=== PATIENT | female | born 1940 | race Caucasian/White ===

== ENCOUNTER 2023-06-30 18:36 | Inpatient (IN) | payer MEDICARE, SELFPAY ==
[2023-06-30] VITALS (7 sets, daily range): BP systolic 120–153; BP diastolic 39–80; BMI 25.4; BMI 21.7
[2023-06-30 15:42] LABS: COVID-19 Antigen Negative (Negative)
[2023-06-30 15:42] LABS: % Basophils 0.3 % (0-2); % Immature Granulocytes 0.4 % (0-0.5); % Lymphocytes 18.1 % (20.5-51.1); % Monocytes 12.9 % (1.7-9.3); % Neutrophils 68.3 % (42.2-75.2); Absolute Lymphocytes 1.9 10^3/uL (1.2-3.4); Absolute Monocytes 1.3 10^3/uL (0.1-0.6); Absolute Neutrophils 7.1 10^3/uL (1.4-6.5); Hematocrit 35.4 % (37.0-47.0); Hemoglobin 12.7 g/dL (12.0-16.0); Mean Corp Hgb Conc. 35.9 g/dL (33.0-37.0); Mean Corpuscular Hgb 33.2 pg (27.0-31.0); Mean Corpuscular Volume 92.4 fL (81.0-99.0); Mean Platelet Volume 10.8 fL (7.4-10.4); Nucleated Red Blood Cells % 0 %; Platelet Count 204 10^3/uL (130-400); Red Blood Cell Count 3.83 10^6/uL (4.20-5.40); White Blood Cell Count 10.4 10^3/uL (4.8-10.8)
[2023-06-30 15:55] LABS: ALT (SGPT) 42 U/L (0-35); AST (SGOT) 105 U/L (14-36); Albumin 3.9 g/dl (3.5-5.0); Alkaline Phosphatase 61 U/L (38-126); Blood Urea Nitrogen 19 mg/dl (7-17); Carbon Dioxide 24 mmol/L (22-30); Chloride 102 mmol/L (98-107); Estimated Creatinine Clearance 29 ml/min; Glucose 107 mg/dl (70-99); Potassium 4.3 mmol/L (3.5-5.1); Sodium 132 mmol/L (135-145); Total Bilirubin 0.6 mg/dl (0.2-1.3); Total Protein 7.4 g/dl (6.3-8.2); eGFR 49.86
--- NOTE | 2023-06-30 15:56 | ED.GENMED ---
History of Present Illness
<Marie Quintana PA-C - Last Filed: 06/30/23 19:03>
General
Chief Complaint: Cold/Flu/URI Symptoms
Source: patient
Exam Limitations: none
Time Seen by Provider: 06/30/23 15:22
Nursing documentation reviewed up to this point in time: agreed with
Travel History
Have you had any contact with someone who has COVID-19?: Unable to Answer
Do you have any symptoms of coronavirus? Fever > 100 degrees, chills, cough, shortness of breath, sore throat, loss of taste or smell, muscle aches, or headache?: Unable to Answer
History of Present Illness
History of Present Illness:
Patient is a 82 year old female with history dementia, hypertension, GERD, diabetes presenting to the emergency department via EMS from assisted living facility for evaluation of weakness and dehydration. According to EMS paperwork�patient was
picked up from [facility] assisted living due to weakness and low pulse ox and flulike symptoms. Patient denies any current complaints. She is coughing on initial encounter. She denies any chest pain, shortness of breath, abdominal pain, vomiting.
Per her son�she has been more confused recently and was started on a course of Ceftin 250 mg twice daily yesterday for suspected urinary tract infection.
Phy Exam
<Marie Quintana PA-C - Last Filed: 06/30/23 19:03>
Physical Exam
Physical Exam:
General: Well appearing and non-toxic
Vitals: Vital signs stable, febrile to 100.1 Fahrenheit
HEENT: Atraumatic, normocephalic; pupils equal round and reactive to light bilaterally, sclera anicteric cervical protecting airway
Neck: appears supple, no JVD, no meningeal signs
CV: Regular rate and rhythm, heart sounds normal, no evidence of cyanosis
Resp: No evidence of respiratory distress, lungs clear without wheezes, rales or rhonchi, no accessory muscle use
Abd: Soft, nontender non-distended
Extremities: No deformities, no evidence of cyanosis or edema
Neuro: alert and oriented x 1 to person; speech normal, no focal motor deficit
Psych: Normal affect
Skin: Intact, no rashes
Course
<Marie Quintana PA-C - Last Filed: 06/30/23 19:03>
Orders/Labs/Results
Orders:
Orders
06/30/23 Dinner
Regular
At Your Request: Limited, Structural Iron Worker Required
06/30/23 15:28
Complete Blood Count/With Diff Urgent
Comprehensive Metabolic Panel Urgent
06/30/23 15:34
COVID-19 Antigen Urgent
Source: Nasal Swab
INF RAPID [Influenza A+B Rapid Molecular] Urgent
GIULIANO Source: Nasal Swab
Specimen Description:
06/30/23 15:55
Urinalysis Reflex To Culture Urgent
Date Specimen was Collected: 06/30/23
Time Specimen was Collected: 19:27
Acetaminophen [Tylenol] 650 mg PO NOW STA
CR Chest - 2 Views Urgent
Comment:
Reason For Exam: shortness of breath, influenza A positive
06/30/23 16:13
0.9% Sodium Chloride 1000 ml [Nss] 1,000 ml IV BOLUS
06/30/23 18:00
Oseltamivir Phosphate [Tamiflu] 30 mg PO NOW STA
06/30/23 18:11
Admit/Transfer Patient As Directed
Co-Sign Provider:
Level of Care: Inpatient admission
Assign to:: Medical/Surgical
Physician / Group: brenden hodge
Diagnosis: influenza A with hypoxia, mekhi
Reason for Hospitalization: influenza A with hypoxia, mekhi
Expected length of stay greater than two midnights?: Yes
ELOS- Estimated Length of Stay in days: 3
I certify the patient meets the requirements for IP care: Yes
Code Status As Directed
Resuscitation Status: Do not resuscitate
Reached after discussion with pt or family/Healthcare POA: Yes
Based on pt advanced directive or healthcare POA form: Yes
Decision communicated with: per son at bedside
06/30/23 18:12
DNR Bracelet Application ONCE
07/01/23 08:00
Oseltamivir Phosphate [Tamiflu] 30 mg PO BID
Abnormal Lab Results
06/30/23
15:28
RBC 3.83 L 10^6/uL
(4.20-5.40)
Hct 35.4 L %
(37.0-47.0)
MCH 33.2 H pg
(27.0-31.0)
MPV 10.8 H fL
(7.4-10.4)
Absolute Neuts (auto) 7.1 H 10^3/uL
(1.4-6.5)
Absolute Monos (auto) 1.3 H 10^3/uL
(0.1-0.6)
Lymphocytes % 18.1 L %
(20.5-51.1)
Monocytes % 12.9 H %
(1.7-9.3)
Sodium 132 L mmol/L
(135-145)
BUN 19 H mg/dl
(7-17)
Creatinine 1.1 H mg/dL
(0.6-1.0)
Glucose 107 H mg/dl
(70-99)
AST 105 H U/L
(14-36)
ALT 42 H U/L
(0-35)
06/30/23 15:28
06/30/23 15:28
Vital Signs
Initial and Last Documented VS:
Initial Vital Signs
Temp Pulse Resp BP Pulse Ox
100.1 F 74 28 153/49 92
06/30/23 15:12 06/30/23 15:12 06/30/23 15:12 06/30/23 15:12 06/30/23 15:12
Last Documented Vital Signs
Temp Pulse Resp BP Pulse Ox
100.1 F 74 28 151/50 95
06/30/23 15:12 06/30/23 15:12 06/30/23 15:12 06/30/23 17:00 06/30/23 18:23
<Misha Leal MD - Last Filed: 06/30/23 19:38>
Orders/Labs/Results
Orders:
Orders
06/30/23 Dinner
Regular
At Your Request: Limited, Structural Iron Worker Required
06/30/23 15:28
Complete Blood Count/With Diff Urgent
Comprehensive Metabolic Panel Urgent
06/30/23 15:34
COVID-19 Antigen Urgent
Source: Nasal Swab
INF RAPID [Influenza A+B Rapid Molecular] Urgent
GIULIANO Source: Nasal Swab
Specimen Description:
06/30/23 15:55
Urinalysis Reflex To Culture Urgent
Date Specimen was Collected: 06/30/23
Time Specimen was Collected: 19:27
Acetaminophen [Tylenol] 650 mg PO NOW STA
CR Chest - 2 Views Urgent
Comment:
Reason For Exam: shortness of breath, influenza A positive
06/30/23 16:13
0.9% Sodium Chloride 1000 ml [Nss] 1,000 ml IV BOLUS
06/30/23 18:00
Oseltamivir Phosphate [Tamiflu] 30 mg PO NOW STA
06/30/23 18:11
Admit/Transfer Patient As Directed
Co-Sign Provider:
Level of Care: Inpatient admission
Assign to:: Medical/Surgical
Physician / Group: brenden hodge
Diagnosis: influenza A with hypoxia, mekhi
Reason for Hospitalization: influenza A with hypoxia, mekhi
Expected length of stay greater than two midnights?: Yes
ELOS- Estimated Length of Stay in days: 3
I certify the patient meets the requirements for IP care: Yes
Code Status As Directed
Resuscitation Status: Do not resuscitate
Reached after discussion with pt or family/Healthcare POA: Yes
Based on pt advanced directive or healthcare POA form: Yes
Decision communicated with: per son at bedside
06/30/23 18:12
DNR Bracelet Application ONCE
07/01/23 08:00
Oseltamivir Phosphate [Tamiflu] 30 mg PO BID
Abnormal Lab Results
06/30/23
15:28
RBC 3.83 L 10^6/uL
(4.20-5.40)
Hct 35.4 L %
(37.0-47.0)
MCH 33.2 H pg
(27.0-31.0)
MPV 10.8 H fL
(7.4-10.4)
Absolute Neuts (auto) 7.1 H 10^3/uL
(1.4-6.5)
Absolute Monos (auto) 1.3 H 10^3/uL
(0.1-0.6)
Lymphocytes % 18.1 L %
(20.5-51.1)
Monocytes % 12.9 H %
(1.7-9.3)
Sodium 132 L mmol/L
(135-145)
BUN 19 H mg/dl
(7-17)
Creatinine 1.1 H mg/dL
(0.6-1.0)
Glucose 107 H mg/dl
(70-99)
AST 105 H U/L
(14-36)
ALT 42 H U/L
(0-35)
06/30/23 15:28
06/30/23 15:28
Vital Signs
Initial and Last Documented VS:
Initial Vital Signs
Temp Pulse Resp BP Pulse Ox
100.1 F 74 28 153/49 92
06/30/23 15:12 06/30/23 15:12 06/30/23 15:12 06/30/23 15:12 06/30/23 15:12
Last Documented Vital Signs
Temp Pulse Resp BP Pulse Ox
100.1 F 74 28 151/50 95
06/30/23 15:12 06/30/23 15:12 06/30/23 15:12 06/30/23 17:00 06/30/23 18:23
<Marie Quintana PA-C - Last Filed: 06/30/23 19:03>
MDM/Problems Addressed
Differential Diagnosis Includes:
Viral illness, dehydration, pneumonia, bronchitis, COVID, flu
MDM/Problems Addressed:
Patient is an 82-year-old female presenting from assisted living facility with flulike symptoms and associated hypoxia. Patient with runny nose, cough, fever for the past 2 days. No chest pain or shortness of breath. Physical exam as documented
above. Vital signs are stable, she is febrile to 100.1 Fahrenheit on arrival. She is mildly hypoxic with an O2 saturation of 90 on room air. Heart rate regular, lungs clear. Will check basic labs, viral swabs, urinalysis, chest x-ray. Will give
Tylenol for fever. Will place patient on O2 to maintain oxygen saturation.
CBC without any clinically significant abnormalities. CMP with mild hyponatremia of 132�likely due to dehydration. Mild renal insufficiency likely prerenal. Transaminitis likely reactive. COVID-negative. Patient positive for influenza A. Will
start IV fluids.
Patient O2 saturation improved to 94 on 1 L O2. Chest x-ray pending
Given acute dehydration secondary to influenza A and oxygen requirement�will admit to hospitalist for further management. Discussed with hospitalist.
Chronic conditions affecting care:
Dementia, hypertension, GERD, diabetes
Acute Exacerbation and/or Progression of Chronic Illness:
Influenza A, acute dehydration
<Marie Quintana PA-C - Last Filed: 06/30/23 19:03>
*Radiology
Radiology exam reviewed: preliminary read by ED provider and radiology read reviewed
*Pulse Oximetry
Patient hypoxic: yes
Comment: Placed on 1 L nasal cannula
*Tax Advisor Interpretation
Rate: normal
Interpretation: normal
Heart Rate: 72
Rhythm: sinus
*Critical Care Note
Total Time (30-74mins, 75-104mins- exclusive of procedures): Not Applicable
ED Attending Note
<Marie Quintana PA-C - Last Filed: 06/30/23 19:03>
-
Portions of this chart may have been created with voice recognition software.� Occasional wrong word or��sound alike� substitutions may have occurred due to the inherent limitations of voice recognition software.
<Misha Leal MD - Last Filed: 06/30/23 19:38>
ED Attending Note
Patient seen and examined by attending physician: Yes
ED Attending Note:
Patient with history of dementia, presents to ED from snf secondary to low oxygen level along with 'flulike symptoms'. Patient upon arrival is alert and awake, but pleasantly confused. Patient offers no complaints.
Physical Exam
General: no apparent distress, not acutely ill. afebrile
Head: nc/at. eomi
Neck: supple. no meningeal signs.
Heart: s1/s2 regular rate and rhythm, no murmur. equal radial pulses.
Lungs: no acute respiratory distress. clear bilaterally
Abdomen: normal bowel sounds. not tender.
Neuro: alert and oriented x 1. no focal neurological deficits
Skin: no rash
Psychiatric: well kept. interactive and cooperative
Extremities: no edema. no calf tenderness.
History and exam consistent with symptoms secondary to influenza, including hyponatremia noted, likely prerenal from mild dehydration. As patient is requiring supplemental oxygen, patient will be admitted for further eval treatment, including
continue IV hydration.
Discharge Plan
Departure
Patient Disposition: Admit
Date of Disposition: 06/30/23
Time of Disposition: 17:07
Presentation/result/management discussed w/ accepting MD/DO: Hospitalist
Discharge Problem:
Influenza A, Acute dehydration
Interventions
Interventions:
*Risk Screen - Suicide Last Done: 06/30/23 15:22
*General Assessment Last Done: 06/30/23 15:12
*Neglect/Abuse Screening Last Done: 06/30/23 15:22
ED- Fall Risk Assessment Last Done: 06/30/23 18:25
*ED COVID-19 Vaccine History Last Done: 06/30/23 15:12
ED- Pulmonary Assessment Last Done: 06/30/23 18:23
[2023-06-30] MEDS: TYLENOL 650 MG PO (16:32)
[2023-06-30] MEDS: NSS 1000 IV (16:35)
--- NOTE | 2023-06-30 17:39 | HPS.HSE ---
Addendum entered and electronically signed by Donta Ocampo MD 06/30/23 18:22:
CODE STATUS DNR/DNI per son at bedside
Addendum entered and electronically signed by Donta Ocampo MD 06/30/23 18:16:
I saw and examined the patient.
The SPRING REPAIRER HELPER HAND's note was reviewed and I agree with the note.
Comment:
81-year-old female extensive past medical history of hypertension, hyperlipidemia, mood disorder, dementia, GERD who is presenting from custodial with weakness. Patient with dementia. States of mild cough. Patient was found to be influenza
positive.
General:�Comfortable, Conversant and Fever; No Pain or Chills
HEENT:�NormoCephalic, Anicteric, Moist mucous membranes
Respiratory:�Clear; No Wheezes, Rales or Rhonchi, on oxygen
Cardiac:�S1/S2 and Regular Rhythm; No Murmur, Rub, Gallop or Peripheral Edema
GI:�Soft, Non Tender, Non Distended, Normal Bowel Sounds and No Hepatosplenomegaly
Musculoskeletal:�No Clubbing, No Cyanosis and No Edema
Skin:�Warm and Dry; No Rash or Jaundice
Neuro:�Awake, Alert
Psych:�Calm
Impression
Acute hypoxic respiratory insuffiency
Influenza positive
Primary hypertension
hyperlipidemia
GERD
Mood disorder
Dementia unknown if with behavioral disturbances
Insomnia
Mild hyponatremia
Elevated creatinine
Mild transaminitis
Sjogren syndrome
Hx of CVA
Plan
Start patient on LR at 80 cc/h
Trend BMP
Start patient on Tamiflu
Wean oxygen as tolerated
Follow-up chest x-ray
Hold lisinopril
Hold statin
DVT ppx
d/w with son at bedside in details.
Original Note:
Family Physician
-
Family Physician: PHYSICIAN PRIVATE
Chief Complaint
-
Cough, weakness, runny nose
History of Present Illness
82-year-old female from [facility] assisted living with flu symptoms cough, weakness, runny nose that started yesterday 06/29/2023 per her son. She was started on Ceftin 250 mg twice daily of which she took 2 doses. Today she was noted to be hypoxic
so they sent her to ER for evaluation. She is flu A positive in the Er with mild hypoxia and noted to be dehydrated. Her son states she had blood work done last week including A1c she has had increased lethargy so they had stopped her gabapentin
and metformin due to a normal A1c and decreased her trazodone to help improve alertness. He is unsure of her baseline labs. The patient denies headache, chest pain, palpitations, shortness of breath, abdominal pain, nausea, vomiting, diarrhea,
urinary symptoms
The patient has past medical history of dementia, TIA, HTN, GERD, Sjogren's syndrome, DM 2, anxiety, depression.
Medical History
Past Medical History
Past Medical History: Reports Other
Additional Past Medical History:
dementia, TIA/CVA 4 years ago, HTN, GERD, Sjogren's syndrome, DM 2, anxiety, depression
Past Surgical History: Reports Other (Foot surgery, cataract extraction bilaterally)
Social History
Tobacco: Non-smoker
Alcohol: None
Drug: None
Personal: Single
Living: Assisted Living ([facility])
Employment: Retired
Family History
Family History: Unable to Obtain
Allergies / Home Medications
Allergies reflects when Allergies were last updated in [employer].
Home Medications with original date entered in [employer]
Allergy/Medication List:
Allergies
Allergy/AdvReac Type Severity Reaction Status Date / Time
No Known Allergies Allergy Unverified 06/30/23 15:57
Home Medications
acetaminophen 325 mg tablet (Tylenol) 650 mg PO Q6HPRN PRN mild pain 06/30/23
amlodipine 2.5 mg tablet (Norvasc) 2.5 mg PO DAILY 06/30/23
aspirin 81 mg chewable tablet 81 mg PO DAILY 06/30/23
atorvastatin 40 mg tablet (Lipitor) 40 mg PO HS 06/30/23
calcium carbonate 600 mg-vitamin D3 10 mcg (400 unit) tablet (Calcium 600 + D(3)) 1 tab PO BID 06/30/23
cefuroxime axetil 250 mg tablet 250 mg PO BID 06/30/23
cevimeline 30 mg capsule 1 cap PO BID 06/30/23
cholecalciferol (vitamin D3) 25 mcg (1,000 unit) tablet (Vitamin D3) 25 mcg PO DAILY 06/30/23
clopidogrel 75 mg tablet (Plavix) 75 mg PO DAILY 06/30/23
esomeprazole magnesium 40 mg capsule,delayed release (Nexium) 40 mg PO DAILY 06/30/23
ezetimibe 10 mg tablet (Zetia) 10 mg PO DAILY 06/30/23
fenofibrate nanocrystallized 145 mg tablet (Tricor) 145 mg PO DAILY 06/30/23
ferrous sulfate 325 mg (65 mg iron) tablet 325 mg PO DAILY 06/30/23
lisinopril 2.5 mg tablet 2.5 mg PO DAILY 06/30/23
metoprolol succinate 25 mg tablet,extended release 24 hr (Toprol XL) 25 mg PO BID 06/30/23
paroxetine HCl 20 mg tablet (Paxil) 20 mg PO DAILY 06/30/23
risperidone 0.5 mg tablet (Risperdal) 0.5 mg PO HS 06/30/23
therapeutic multivitamin 1 tab PO DAILY 06/30/23
trazodone 50 mg tablet 25 mg PO HS 06/30/23
Review of Systems
-
History Source: Patient and Family (Son at bedside)
A 12 point ROS was completed and negative except as noted: Yes
Constitutional: Reports Fever and Chills
EENT: Reports Runny Nose; Denies Sore Throat
Respiratory: Reports Cough; Denies Trouble Breathing
Cardiac: Denies Chest Pain, Diaphoresis, Palpitations or Syncope
Abdomen/GI: Denies Abdominal Pain, Nausea, Vomiting, Diarrhea, Constipated, Bloody Stools or Black Stools
: Denies Dysuria, Frequency, Flank Pain, Incontinence or Difficulty Voiding
Musculoskeletal: Denies Joint Pain or Edema
Skin: Denies Itching or Rash
Neurological: Denies Dizzy, Headache or Weakness
Endocrine: Reports No Symptoms
Hematologic/Lymphatic: Reports No Symptoms
Psych: Reports Calm
Physical Exam
Vital Signs
Vital Signs
Temp Pulse Resp BP Pulse Ox
100.1 F 74 28 153/49 92
06/30/23 15:12 06/30/23 15:12 06/30/23 15:12 06/30/23 15:12 06/30/23 15:12
Physical Exam
General: Comfortable, Conversant and Fever; No Pain or Chills
HEENT: NormoCephalic, Anicteric, Moist mucous membranes and PERRLA
Respiratory: Clear; No Wheezes, Rales or Rhonchi
Cardiac: S1/S2 and Regular Rhythm; No Murmur, Rub, Gallop or Peripheral Edema
Breast: Deferred by me
GI: Soft, Non Tender, Non Distended, Normal Bowel Sounds and No Hepatosplenomegaly
Rectal: Deferred by Provider
Genito-urinary: Deferred by me
Musculoskeletal: No Clubbing, No Cyanosis and No Edema
Skin: Warm and Dry; No Rash or Jaundice
Neuro: Awake, Alert, Oriented (To name, some of history, son) and No Sensory Deficits; No Slurred Speech, Facial Droop, Tremors or Sedated
Psych: Calm
Laboratory Results
-
06/30/23 15:28
06/30/23 15:28
Laboratory Results
Total Bilirubin 0.6 mg/dl (0.2-1.3) 06/30/23 15:28
AST 105 U/L (14-36) H 06/30/23 15:28
ALT 42 U/L (0-35) H 06/30/23 15:28
Alkaline Phosphatase 61 U/L (38-126) 06/30/23 15:28
Impression/Plan
-
Impression/plan:
Admit to MedSurg
#Acute hypoxic resp insuff 2/2 influenza A
Took 2 doses of Ceftin 250mg bid will hold further doses as patient has a viral illness as above
92% RA
-Flu A precautions
-Tamiflu 30 mg twice daily x 5 days
-Continue regular diet
-PT/OT/case management consult
CXR:�Negative
#CLARITA likely dehydration secondary to influenza A
Creat 1.1 no prior lab
-IV LR 80cc/hr
-Hold lisinopril 2.5 mg
-Follow CMP
#Transaminitis�mild likely reactive
-Follow CMP
-Hold Lipitor 40 mg, Zetia 10 mg consider just resuming 1
#Dementia hx
-Fall precautions
#HTN-benign
-Monitor BP
-Continue Norvasc 2.5 mg daily, metoprolol ER 25 mg, hold lisinopril 2.5 mg
#TIA hx/CVA
-Continue aspirin, Plavix hold current Lipitor and Zetia given transaminitis
#DM 2
Recent metformin was stopped 1 week ago due to normal A1c per son although cannot recall value
#GERD
-Continue Nexium
#Anxiety/depression
-Continue risperidone 0.5 mg at bedtime, Paxil 20 mg daily
#Sjrogens syndrome
#Insomnia
-Continue trazodone 25 mg at bedtime hold if sedated recently had decreased 1 week ago
DVT prophylaxis
-Subcu Lovenox
DNR per son at bedside
[2023-06-30] MEDS: TAMIFLU 30 MG PO (18:20)
[2023-06-30 19:48] LABS: Urine Albumin Trace (Neg - Trace); Urine Bilirubin Negative (Negative); Urine Character Clear (Clear); Urine Color Yellow; Urine Glucose Negative (Negative); Urine Ketone Trace (Negative); Urine Leukocyte Negative (Negative); Urine Nitrite Negative (Negative); Urine Occult Blood Negative (Negative); Urine Urobilinogen Negative (Neg - 1+)
[2023-06-30] MEDS: TOPROL XL 25 MG PO (21:00)
[2023-06-30] MEDS: OSCAL 500 + D 500 MG PO (21:00)
[2023-06-30] MEDS: MUCINEX 600 MG PO (21:00)
[2023-06-30] MEDS: LR 1000 IV (21:01)
[2023-06-30] MEDS: RISPERDAL 0.5 MG PO (22:51)
[2023-06-30] MEDS: DESYREL 25 MG PO (22:51)
[2023-07-01 07:30] VITALS: BP 143/60
[2023-07-01 07:42] LABS: % Basophils 0.2 % (0-2); % Eosinophils 0.2 % (0-6); % Immature Granulocytes 0.4 % (0-0.5); % Lymphocytes 24.4 % (20.5-51.1); % Monocytes 15.8 % (1.7-9.3); Absolute Lymphocytes 1.1 10^3/uL (1.2-3.4); Absolute Monocytes 0.7 10^3/uL (0.1-0.6); Absolute Neutrophils 2.8 10^3/uL (1.4-6.5); Hematocrit 30.3 % (37.0-47.0); Hemoglobin 10.6 g/dL (12.0-16.0); Mean Corpuscular Hgb 33.3 pg (27.0-31.0); Mean Corpuscular Volume 95.3 fL (81.0-99.0); Nucleated Red Blood Cells % 0 %; Red Blood Cell Count 3.18 10^6/uL (4.20-5.40); Red Cell Dist. Width 13.5 % (11.5-14.5); White Blood Cell Count 4.7 10^3/uL (4.8-10.8)
[2023-07-01 08:52] LABS: Platelet Count 140 10^3/uL (130-400)
[2023-07-01] MEDS: FEOSOL 325 MG PO (09:43)
[2023-07-01] MEDS: PAXIL 20 MG PO (09:43)
[2023-07-01] MEDS: MUCINEX 600 MG PO ×2 (09:43→19:38)
[2023-07-01] MEDS: THERAGRAN 1 TABLET PO (09:43)
[2023-07-01] MEDS: LOW STRENGTH ASPIRIN 81 MG PO (09:43)
[2023-07-01] MEDS: TAMIFLU 30 MG PO ×2 (09:43→19:38)
[2023-07-01] MEDS: NORVASC 2.5 MG PO (09:43)
[2023-07-01] MEDS: PROTONIX 40 MG PO (09:43)
[2023-07-01] MEDS: PLAVIX 75 MG PO (09:43)
[2023-07-01] MEDS: VITAMIN D3 (cholecalciferol) 25 MCG PO (09:43)
[2023-07-01] MEDS: OSCAL 500 + D 500 MG PO ×2 (09:43→19:38)
[2023-07-01 09:44] LABS: ALT (SGPT) 29 U/L (0-35); AST (SGOT) 71 U/L (14-36); Albumin 2.6 g/dl (3.5-5.0); Alkaline Phosphatase 46 U/L (38-126); Blood Urea Nitrogen 19 mg/dl (7-17); Calcium 8.6 mg/dl (8.4-10.2); Carbon Dioxide 26 mmol/L (22-30); Chloride 106 mmol/L (98-107); Estimated Creatinine Clearance 43 ml/min; Glucose 87 mg/dl (70-99); Potassium 3.9 mmol/L (3.5-5.1); Sodium 137 mmol/L (135-145); Total Bilirubin 0.5 mg/dl (0.2-1.3); Total Protein 5.7 g/dl (6.3-8.2); eGFR > 60.00
[2023-07-01] MEDS: TOPROL XL 25 MG PO ×2 (09:44→19:38)
[2023-07-01] MEDS: LR 1000 IV (09:45)
--- NOTE | 2023-07-01 11:47 | W.PN.HOSP.TC ---
Today's Communication/Plan
-
monitor diet tolerance
Wean down o2 as tolerated
Tamiflu
PT/OT
Assessment / Plan
Assessment / Plan
#Acute hypoxic resp insuff 2/2 influenza A
-Flu A precautions
-Tamiflu 30 mg twice daily x 5 days
-Continue regular diet
-PT/OT/case management consult
CXR:�Negative
#Elevated Cr likely CLARITA likely secondary to dehydration secondary to influenza A
Creat 1.1 no prior lab. Cr downtrending.
-IV LR 80cc/hr can be stopped later today if tolerating diet.
-Hold lisinopril 2.5 mg
-Follow CMP
#Transaminitis�mild likely reactive
-Follow CMP,. improving
-Hold Lipitor 40 mg, Zetia 10 mg
#Dementia hx
-Fall precautions
#HTN-benign
-Monitor BP
-Continue Norvasc 2.5 mg daily, metoprolol ER 25 mg, hold lisinopril 2.5 mg
#TIA hx/CVA
-Continue aspirin, Plavix hold current Lipitor and Zetia given transaminitis
#DM 2
Recent metformin was stopped 1 week ago due to normal A1c per son although cannot recall value
#GERD
-Continue Nexium
#Anxiety/depression
-Continue risperidone 0.5 mg at bedtime, Paxil 20 mg daily
#Sjrogens� syndrome
#Insomnia
-Continue trazodone 25 mg at bedtime hold if sedated recently had decreased 1 week ago
DVT prophylaxis
-Subcu Lovenox
DNR per son at bedside
Anticipated Discharge: Within 24 hours
Subjective/Interval History
-
Date of Service: July 01, 2023
afebrile overnight
denies sob
Objective Data
-
Labs:
Laboratory Results
07/01/23
06:47
WBC 4.7 L
Hgb 10.6 L
Hct 30.3 L
Plt Count 140 D
Sodium 137
Potassium 3.9
Chloride 106
Carbon Dioxide 26
BUN 19 H
Creatinine 0.9
Glucose 87
Calcium 8.6
Total Bilirubin 0.5
AST 71 H
ALT 29
Alkaline Phosphatase 46
Vital Signs:
Vital Signs
Temp Pulse Resp BP Pulse Ox
98.7 F 61 18 143/60 97
07/01/23 07:30 07/01/23 09:44 07/01/23 07:30 07/01/23 09:44 07/01/23 07:30
I&O
06/30/23 07/01/23 07/02/23
06:59 06:59 06:59
Intake Total 600 / 600
Balance 600 / 600
Physical Exam
-
General: Well Developed and No Apparent Distress
HEENT: Normocephalic, Atraumatic, Moist Mucous Membranes and Oxygen
Respiratory: Clear to Auscultation
Cardiac: Regular Rhythm and S1/S2; Negative Murmur, Rub or Gallop
GI: Soft, Nontender, Nondistended and Normal Bowel Sounds; Negative Organomegaly
Rectal: Deferred by Provider
Musculoskeletal: No Clubbing, No Cyanosis and No Edema
Skin: Negative Rash
Neuro: Awake, No Motor Deficits and Nonfocal/Grossly Intact
Psych: Apparent Dementia
[2023-07-01 11:59] VITALS: BP 114/48; BP 121/50; PULSE 64; O2SAT 95
[2023-07-01 12:00] VITALS: BP 114/48; BP 121/50; PULSE 64; O2SAT 95
--- NOTE | 2023-07-01 14:15 | CM ---
Addendum entered by Claribel Vera 07/01/23 15:15:
PT/OT are recommending skilled placement, options reviewed with patient's son, Dustin and he has selected [facility], referral sent to [facility].
Original Note:
patient financial services manager reviewed patient's chart and patient is currently on isolation, patient also with dementia per chart, case checker spoke with patient's son Dustin who provided patient's social situation. Patient resides at [facility] in [place]. Patient was independent with adl's and uses a walker with ambulation. Patient has a prescription plan and patient uses [facility] in [place] pharmacy.
PCP: Dr. Bundy
Plan; patient financial services manager will await PT/OT evaluations to assist with discharge planning. Possibly to return to [facility].
[2023-07-01 15:30] VITALS: BP 145/51
[2023-07-01] MEDS: LOVENOX 40 MG SC (18:00)
[2023-07-01 19:37] VITALS: BP 138/55
[2023-07-01] MEDS: RISPERDAL 0.5 MG PO (21:13)
[2023-07-01] MEDS: DESYREL 25 MG PO (21:13)
[2023-07-01 23:00] VITALS: BP 139/59
[2023-07-02] MEDS: LR 1000 IV (00:03)
[2023-07-02 07:30] VITALS: BP 161/69
[2023-07-02 08:52] LABS: % Basophils 0.2 % (0-2); % Immature Granulocytes 0.2 % (0-0.5); % Monocytes 13.9 % (1.7-9.3); % Neutrophils 46.7 % (42.2-75.2); Absolute Lymphocytes 1.6 10^3/uL (1.2-3.4); Absolute Monocytes 0.6 10^3/uL (0.1-0.6); Absolute Neutrophils 1.9 10^3/uL (1.4-6.5); Hematocrit 34.1 % (37.0-47.0); Hemoglobin 11.9 g/dL (12.0-16.0); Mean Corp Hgb Conc. 34.9 g/dL (33.0-37.0); Mean Corpuscular Hgb 32.8 pg (27.0-31.0); Mean Corpuscular Volume 93.9 fL (81.0-99.0); Mean Platelet Volume 11.1 fL (7.4-10.4); Nucleated Red Blood Cells % 0 %; Platelet Count 175 10^3/uL (130-400); Red Blood Cell Count 3.63 10^6/uL (4.20-5.40); Red Cell Dist. Width 13.7 % (11.5-14.5); White Blood Cell Count 4.1 10^3/uL (4.8-10.8)
[2023-07-02 09:28] LABS: ALT (SGPT) 38 U/L (0-35); AST (SGOT) 89 U/L (14-36); Albumin 3.4 g/dl (3.5-5.0); Alkaline Phosphatase 62 U/L (38-126); Blood Urea Nitrogen 17 mg/dl (7-17); Calcium 8.8 mg/dl (8.4-10.2); Carbon Dioxide 27 mmol/L (22-30); Chloride 106 mmol/L (98-107); Estimated Creatinine Clearance 43 ml/min; Glucose 95 mg/dl (70-99); Potassium 3.6 mmol/L (3.5-5.1); Sodium 137 mmol/L (135-145); Total Bilirubin 0.6 mg/dl (0.2-1.3); Total Protein 6.7 g/dl (6.3-8.2); eGFR > 60.00
[2023-07-02] MEDS: MUCINEX 600 MG PO ×2 (10:19→20:11)
[2023-07-02] MEDS: THERAGRAN 1 TABLET PO (10:20)
[2023-07-02] MEDS: VITAMIN D3 (cholecalciferol) 25 MCG PO (10:20)
[2023-07-02] MEDS: OSCAL 500 + D 500 MG PO ×2 (10:21→20:11)
[2023-07-02] MEDS: NORVASC 2.5 MG PO ×2 (10:21→12:18)
[2023-07-02] MEDS: PAXIL 20 MG PO (10:21)
[2023-07-02] MEDS: TOPROL XL 25 MG PO ×2 (10:21→20:11)
[2023-07-02] MEDS: PROTONIX 40 MG PO (10:22)
[2023-07-02] MEDS: TAMIFLU 30 MG PO ×2 (10:22→20:11)
[2023-07-02] MEDS: LOW STRENGTH ASPIRIN 81 MG PO (10:22)
[2023-07-02] MEDS: FEOSOL 325 MG PO (10:22)
[2023-07-02] MEDS: PLAVIX 75 MG PO (10:22)
--- NOTE | 2023-07-02 10:38 | CM ---
Addendum entered by Kajal Collier RN 07/02/23 15:43:
LM with [facility] about bed.
MRI ordered .
Spoke with Dustin son he requested a referral to be placed for [facility]. Referral placed.
PLAN To SNF when medically ready
Original Note:
Started on Tamiflu precautions for Influenza A.
Weaned to room air.
PT OT recommended SNF.
Son requested [facility] who accepted her in care port.
PLAN To [facility] when medically ready
--- NOTE | 2023-07-02 11:25 | W.PN.HOSP.TC ---
Addendum entered and electronically signed by Donta Ocampo MD 07/02/23 12:21:
Updated son over the phone in detail.
Son noted patient with dementia also with more confusion compared to baseline
Explained to son possibility of hospital-acquired delirium in the setting of infection and hypoxemia
No focal neurological deficit
Will check MRI of the brain to rule out new CVA
Original Note:
Today's Communication/Plan
-
adjust bp meds
await placement
monitor on room air
Assessment / Plan
Assessment / Plan
#Acute hypoxic resp insuff 2/2 influenza A
-Flu A precautions
-Tamiflu 30 mg twice daily x 5 days
-Continue regular diet
-PT/OT/case management consult
CXR:�Negative
-weaned off oxygen. Stable on room air.
#Elevated Cr likely CLARITA likely secondary to dehydration secondary to influenza A
Creat 1.1 no prior lab. Cr downtrending.
-DC further IVF.
-Hold lisinopril 2.5 mg
-Follow CMP
#Transaminitis�mild likely reactive
-Follow CMP,. trend for now.
-Hold Lipitor 40 mg, Zetia 10 mg
#Dementia hx
-Fall precautions
#HTN-benign
-Monitor BP
-Continue metoprolol ER 25 mg, hold lisinopril 2.5 mg. Increase norvasc to 5mg
#TIA hx/CVA
-Continue aspirin, Plavix hold current Lipitor and Zetia given transaminitis
#DM 2
Recent metformin was stopped 1 week ago due to normal A1c per son although cannot recall value
#GERD
-Continue Nexium
#Anxiety/depression
-Continue risperidone 0.5 mg at bedtime, Paxil 20 mg daily
#Sjrogens� syndrome
#Insomnia
-Continue trazodone 25 mg at bedtime hold if sedated recently had decreased 1 week ago
DVT prophylaxis
-Subcu Lovenox
called son to update. No response. Left vm.
DNR per son at bedside
PT/OT-SNF. Await placement. CM aware.
Anticipated Discharge: Within 24 hours
Subjective/Interval History
-
Date of Service: July 02, 2023
weaned off oxygen since last night
stable on room air
remains afebrile
Objective Data
-
Labs:
Laboratory Results
07/02/23
07:32
WBC 4.1 L
Hgb 11.9 L
Hct 34.1 L
Plt Count 175 D
Sodium 137
Potassium 3.6
Chloride 106
Carbon Dioxide 27
BUN 17
Creatinine 0.9
Glucose 95
Calcium 8.8
Total Bilirubin 0.6
AST 89 H
ALT 38 H
Alkaline Phosphatase 62
Vital Signs:
Vital Signs
Temp Pulse Resp BP Pulse Ox
98.5 F 65 22 161/69 94
07/02/23 07:30 07/02/23 07:30 07/02/23 07:30 07/02/23 07:30 07/02/23 07:30
I&O
07/01/23 07/02/23 07/03/23
06:59 06:59 06:59
Intake Total 600 / 600 960 / 960
Balance 600 / 600 960 / 960
Physical Exam
-
General: Well Developed and No Apparent Distress
HEENT: Normocephalic, Atraumatic, Moist Mucous Membranes and Oxygen
Respiratory: Clear to Auscultation
Cardiac: Regular Rhythm and S1/S2; Negative Murmur, Rub or Gallop
GI: Soft, Nontender, Nondistended and Normal Bowel Sounds; Negative Organomegaly
Rectal: Deferred by Provider
Musculoskeletal: No Clubbing, No Cyanosis and No Edema
Skin: Negative Rash
Neuro: Awake, No Motor Deficits and Nonfocal/Grossly Intact
Psych: Calm and Apparent Dementia
Data Reviewed
-
Total Time Spent with Patient (in minutes): 55
[2023-07-02 15:24] VITALS: BP 171/59
[2023-07-02] MEDS: APRESOLINE 5 MG IV (15:42)
[2023-07-02] MEDS: FLUSH (NSS) 2 FLUSH IV (15:46)
[2023-07-02 15:58] VITALS: BP 170/68
--- NOTE | 2023-07-02 17:12 | PTCARENOTE ---
Patient was sent to MRI on stretcher with transport staff. Patient refused MRI per phone call from dietetic tech. Patient returned to room. Call daniels, bed alarm and med sitter in place.
[2023-07-02 17:48] VITALS: BP 177/76
[2023-07-02] MEDS: LOVENOX SC (17:48)
[2023-07-02 20:08] VITALS: BP 149/63
[2023-07-02] MEDS: DESYREL 25 MG PO (21:10)
[2023-07-02] MEDS: RISPERDAL 0.5 MG PO (21:11)
[2023-07-03 00:20] VITALS: BP 144/61
[2023-07-03 08:09] VITALS: BP 143/60
[2023-07-03] MEDS: NORVASC 5 MG PO (09:05)
[2023-07-03] MEDS: MUCINEX 600 MG PO ×2 (09:05→20:32)
[2023-07-03] MEDS: LOW STRENGTH ASPIRIN 81 MG PO (09:05)
[2023-07-03] MEDS: FEOSOL 325 MG PO (09:10)
[2023-07-03] MEDS: OSCAL 500 + D 500 MG PO ×2 (09:11→20:31)
[2023-07-03] MEDS: PAXIL 20 MG PO (09:11)
[2023-07-03] MEDS: PLAVIX 75 MG PO (09:11)
[2023-07-03] MEDS: TOPROL XL 25 MG PO ×2 (09:12→20:31)
[2023-07-03] MEDS: PROTONIX 40 MG PO (09:12)
[2023-07-03] MEDS: THERAGRAN 1 TABLET PO (09:13)
[2023-07-03] MEDS: VITAMIN D3 (cholecalciferol) 25 MCG PO (09:13)
[2023-07-03 09:14] LABS: % Basophils 0.3 % (0-2); % Eosinophils 1.7 % (0-6); % Immature Granulocytes 0.3 % (0-0.5); % Lymphocytes 38.8 % (20.5-51.1); % Monocytes 12.2 % (1.7-9.3); % Neutrophils 46.7 % (42.2-75.2); Absolute Eosinophils 0.1 10^3/uL (0-0.7); Absolute Lymphocytes 1.4 10^3/uL (1.2-3.4); Absolute Monocytes 0.4 10^3/uL (0.1-0.6); Absolute Neutrophils 1.7 10^3/uL (1.4-6.5); Hematocrit 32.5 % (37.0-47.0); Hemoglobin 11.5 g/dL (12.0-16.0); Mean Corp Hgb Conc. 35.4 g/dL (33.0-37.0); Mean Corpuscular Hgb 32.3 pg (27.0-31.0); Mean Corpuscular Volume 91.3 fL (81.0-99.0); Mean Platelet Volume 10.4 fL (7.4-10.4); Nucleated Red Blood Cells % 0 %; Platelet Count 170 10^3/uL (130-400); Red Blood Cell Count 3.56 10^6/uL (4.20-5.40); Red Cell Dist. Width 13.2 % (11.5-14.5); White Blood Cell Count 3.6 10^3/uL (4.8-10.8)
[2023-07-03] MEDS: TAMIFLU 30 MG PO ×2 (09:20→20:31)
[2023-07-03 09:35] LABS: ALT (SGPT) 32 U/L (0-35); AST (SGOT) 64 U/L (14-36); Albumin 3.1 g/dl (3.5-5.0); Alkaline Phosphatase 58 U/L (38-126); Blood Urea Nitrogen 15 mg/dl (7-17); Calcium 9.2 mg/dl (8.4-10.2); Carbon Dioxide 26 mmol/L (22-30); Chloride 106 mmol/L (98-107); Estimated Creatinine Clearance 55 ml/min; Glucose 101 mg/dl (70-99); Potassium 3.9 mmol/L (3.5-5.1); Sodium 139 mmol/L (135-145); Total Bilirubin 0.5 mg/dl (0.2-1.3); Total Protein 6.6 g/dl (6.3-8.2); eGFR > 60.00
--- NOTE | 2023-07-03 12:05 | W.PN.HOSP.TC ---
Today's Communication/Plan
-
await placement
flu precautions
Assessment / Plan
Assessment / Plan
#Acute hypoxic resp insuff 2/2 influenza A
-Flu A precautions
-Tamiflu 30 mg twice daily x 5 days
-Continue regular diet
-PT/OT/case management consult-SNF
CXR:�Negative
-weaned off oxygen. Stable on room air.
#Elevated Cr likely CLARITA likely secondary to dehydration secondary to influenza A
Creat 1.1 no prior lab. Cr downtrending.
-DC further IVF.
-Hold lisinopril 2.5 mg
-Follow CMP
#Transaminitis�mild likely reactive
-Follow CMP,. trend for now.
-Hold Lipitor 40 mg, Zetia 10 mg
#Dementia without behavioral disturbances so far
# Suspected delirium versus worsening of dementia
-Fall precautions. CT head negative for acute pathology.
-Refused MRI.
#HTN-benign
-Monitor BP. Improving.
-Continue metoprolol ER 25 mg, hold lisinopril 2.5 mg. Increase norvasc to 5mg
#TIA hx/CVA
-Continue aspirin, Plavix hold current Lipitor and Zetia given transaminitis
#DM 2
Recent metformin was stopped 1 week ago due to normal A1c per son although cannot recall value
#GERD
-Continue Nexium
#Anxiety/depression
-Continue risperidone 0.5 mg at bedtime, Paxil 20 mg daily
#Sjrogens� syndrome
#Insomnia
-Continue trazodone 25 mg at bedtime hold if sedated recently had decreased 1 week ago
DVT prophylaxis
-Subcu Lovenox
Discussed with son over the phone in details on and again on 07/02
DNR per son at bedside
PT/OT-SNF. Await placement. CM aware.
Anticipated Discharge: Today
Subjective/Interval History
-
Date of Service: July 03, 2023
no overnight events
refusing MRI
agreed for CT scan
Objective Data
-
Labs:
Laboratory Results
07/03/23
08:44
WBC 3.6 L
Hgb 11.5 L
Hct 32.5 L
Plt Count 170
Sodium 139
Potassium 3.9
Chloride 106
Carbon Dioxide 26
BUN 15
Creatinine 0.7
Glucose 101 H
Calcium 9.2
Total Bilirubin 0.5
AST 64 H
ALT 32
Alkaline Phosphatase 58
Vital Signs:
Vital Signs
Temp Pulse Resp BP Pulse Ox
98.9 F 67 16 143/60 96
07/03/23 08:09 07/03/23 09:05 07/03/23 08:09 07/03/23 09:05 07/03/23 08:09
I&O
07/02/23 07/03/23 07/04/23
06:59 06:59 06:59
Intake Total 960 / 960 1080 / 1080
Balance 960 / 960 1080 / 1080
Physical Exam
-
General: Well Developed and No Apparent Distress
HEENT: Normocephalic, Atraumatic, Moist Mucous Membranes and Oxygen
Respiratory: Clear to Auscultation
Cardiac: Regular Rhythm and S1/S2; Negative Murmur, Rub or Gallop
GI: Soft, Nontender, Nondistended and Normal Bowel Sounds; Negative Organomegaly
Rectal: Deferred by Provider
Musculoskeletal: No Clubbing, No Cyanosis and No Edema
Skin: Negative Rash
Neuro: Awake, No Motor Deficits and Nonfocal/Grossly Intact
Psych: Calm and Apparent Dementia
--- NOTE | 2023-07-03 12:46 | CM ---
Addendum entered by Kajal Collier RN 07/03/23 16:38:
Spoke with Rita MALHOTRA daughter [phone] she said that [facility] will not accept her mom and to see if [facility] can accept her .
Spoke with [facility] referral resent via care port.[facility] accepted her tomorrow. notified .
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
Daughter requested ambulance Will need medical nec form.
[facility]
report [phone]
fax [phone]
PLAN To [facility] 07/04/23 via ambulance
Original Note:
On Tamiflu precautions for Influenza A.
Weaned to room air.
PT OT recommended SNF.[facility] . Referral placed . Spoke with Rebecca from [facility] [phone]. She will reviewed and call back if bed ready.
Resp drop isolation
PLAN To SNF when accepted( [facility] or [facility]
[2023-07-03 14:56] VITALS: BP 115/49
[2023-07-03] MEDS: LOVENOX 40 MG SC (17:11)
[2023-07-03] MEDS: DESYREL 25 MG PO (20:31)
[2023-07-03] MEDS: RISPERDAL 0.5 MG PO (20:32)
[2023-07-03 23:00] VITALS: BP 143/56
[2023-07-04 07:35] VITALS: BP 172/68
[2023-07-04] MEDS: PAXIL 20 MG PO (09:11)
[2023-07-04] MEDS: TAMIFLU 30 MG PO (09:12)
[2023-07-04] MEDS: MUCINEX 600 MG PO (09:12)
[2023-07-04] MEDS: PROTONIX 40 MG PO (09:13)
[2023-07-04] MEDS: NORVASC 5 MG PO (09:13)
[2023-07-04] MEDS: LOW STRENGTH ASPIRIN 81 MG PO (09:13)
[2023-07-04] MEDS: PLAVIX 75 MG PO (09:15)
[2023-07-04] MEDS: VITAMIN D3 (cholecalciferol) 25 MCG PO (09:15)
[2023-07-04] MEDS: THERAGRAN 1 TABLET PO (09:15)
[2023-07-04] MEDS: FEOSOL 325 MG PO (09:16)
[2023-07-04] MEDS: OSCAL 500 + D 500 MG PO (09:16)
[2023-07-04] MEDS: TOPROL XL 25 MG PO (09:19)
--- NOTE | 2023-07-04 10:32 | W.PN.HOSP.TC ---
Today's Communication/Plan
-
SNF today
Assessment / Plan
Assessment / Plan
#Acute hypoxic resp insuff 2/2 influenza A
-Flu A precautions
-Tamiflu 30 mg twice daily x 5 days
-Continue regular diet
-PT/OT/case management consult-SNF
CXR:�Negative
-weaned off oxygen. Stable on room air.
#Elevated Cr likely CLARITA likely secondary to dehydration secondary to influenza A
Creat 1.1 no prior lab. Cr downtrending.
-DC further IVF.
-dc lisinopril 2.5 mg
-Follow CMP
#Transaminitis�mild likely reactive
-Follow CMP,. trend for now.
-Hold Lipitor 40 mg, Zetia 10 mg
#Dementia without behavioral disturbances so far
# Suspected delirium versus worsening of dementia
-Fall precautions. CT head negative for acute pathology.
-Refused MRI.
#HTN-benign
-Monitor BP. Improving.
-Continue metoprolol ER 25 mg, hold lisinopril 2.5 mg. Increase norvasc to 5mg daily
#TIA hx/CVA
-Continue aspirin, Plavix. Repeat CMP and restart statin if continue imrpovement in statin.
#DM 2
Recent metformin was stopped 1 week ago due to normal A1c per son although cannot recall value
#GERD
-Continue Nexium
#Anxiety/depression
-Continue risperidone 0.5 mg at bedtime, Paxil 20 mg daily
#Sjrogens� syndrome
#Insomnia
-Continue trazodone 25 mg at bedtime hold if sedated recently had decreased 1 week ago
DVT prophylaxis
-Subcu Lovenox
Discussed with son over the phone in details on and again on 07/02
DNR per son at bedside
PT/OT-SNF today.
More than 30 minutes spent in discharge including
Final examination of the patient
Summarizing hospital stay
Instructions for continuing care to all relevant caregivers
Preparation of discharge records, prescriptions, and referral forms
Total time spent (in minutes): 40
Anticipated Discharge: Today
Subjective/Interval History
-
Date of Service: July 04, 2023
Watching TV
Afebrile
no complaints
Objective Data
-
Vital Signs:
Vital Signs
Temp Pulse Resp BP Pulse Ox
98 F 56 16 172/68 96
07/04/23 07:35 07/04/23 09:13 07/04/23 07:35 07/04/23 09:13 07/04/23 07:35
I&O
07/03/23 07/04/23 07/05/23
06:59 06:59 06:59
Intake Total 1080 / 1080 960 / 960
Balance 1080 / 1080 960 / 960
Physical Exam
-
General: Well Developed and No Apparent Distress
HEENT: Normocephalic, Atraumatic, Moist Mucous Membranes and Oxygen
Respiratory: Clear to Auscultation
Cardiac: Regular Rhythm and S1/S2; Negative Murmur, Rub or Gallop
GI: Soft, Nontender, Nondistended and Normal Bowel Sounds; Negative Organomegaly
Rectal: Deferred by Provider
Musculoskeletal: No Clubbing, No Cyanosis and No Edema
Skin: Negative Rash
Neuro: Awake, No Motor Deficits and Nonfocal/Grossly Intact
Psych: Calm and Apparent Dementia
--- NOTE | 2023-07-04 10:37 | W.DCSUMMARY ---
Discharge Summary
Discharge Data
Date of Admission: 06/30/23
Date of Discharge: 07/04/23
-
Pending Results: No
Hospital Course
82 female past medical history of dementia, GERD, anxiety, depression, Sjogren's syndrome, hypertension presenting from long term with weakness. Patient was found to have acute hypoxic respiratory insufficiency influenza A. Patient was started
on Tamiflu. Patient received IV fluid resuscitation. Patient elevated creatinine with unclear baseline. Lisinopril was discontinued. Creatinine down trended with IV fluid. Patient was weaned off oxygen and she was stable on room air. Patient
also underwent CT of the head which is negative for acute pathology. Patient also with dementia without behavioral disturbances. Suspected delirium during hospitalization. Patient refused MRI. Patient blood pressure meds were adjusted and
Norvasc was increased. Patient was eval by physical and Occupational Therapy. Patient son was updated throughout hospitalization. Patient be discharged to SNF.
Discharge Plan
-
Patient Disposition: [facility]/SNF
Discharge Diagnosis/Procedures: Acute hypoxic respiratory infection secondary to influenza A
Elevated creatinine
Mild transaminitis
Condition: Fair
Diet: As tolerated
Activity: With assistance and As tolerated
Driving Restrictions: Not until seen by your Dr
Blood Work: CMP in 1 week with primary doctor.
Activity Restrictions/Additional Instructions:
Restart crestor and zetia pending improvement in LFTs.
Referrals:
Kurt Bundy DO [Family Provider] - in less than 1 week
Prescriptions:
New
oseltamivir 30 mg Capsule
30 mg PO BID Qty: 3 0RF
Continued
acetaminophen [Tylenol] 325 mg Tablet
650 mg PO Q6HPRN PRN (Reason: mild pain)
trazodone 50 mg Tablet
25 mg PO HS
therapeutic multivitamin Tablet
1 tab PO DAILY
clopidogrel [Plavix] 75 mg Tablet
75 mg PO DAILY
paroxetine HCl [Paxil] 20 mg Tablet
20 mg PO DAILY
ferrous sulfate 325 mg (65 mg iron) Tablet
325 mg PO DAILY
esomeprazole magnesium [Nexium] 40 mg Capsule,Delayed Release(Dr/Ec)
40 mg PO DAILY
cevimeline 30 mg Capsule
1 cap PO BID
aspirin 81 mg Tablet,Chewable
81 mg PO DAILY
metoprolol succinate [Toprol XL] 25 mg Tablet Extended Release 24 Hr
25 mg PO BID
risperidone [Risperdal] 0.5 mg Tablet
0.5 mg PO HS
fenofibrate nanocrystallized [Tricor] 145 mg Tablet
145 mg PO DAILY
Hold Instructions: Resume on 07/13/23.
cholecalciferol (vitamin D3) [Vitamin D3] 25 mcg (1,000 unit) Tablet
25 mcg PO DAILY
calcium carbonate-vitamin D3 [Calcium 600 + D(3)] 600 mg-10 mcg (400 unit) Tablet
1 tab PO BID
Changed
amlodipine [Norvasc] 2.5 mg Tablet
5 mg PO DAILY Qty: 0 0RF
Held
atorvastatin [Lipitor] 40 mg Tablet
40 mg PO HS
Hold Instructions: Resume on 07/13/23.
ezetimibe [Zetia] 10 mg Tablet
10 mg PO DAILY
Hold Instructions: Resume on 07/13/23.
Discontinued
cefuroxime axetil 250 mg Tablet
250 mg PO BID
Patient Comments:
for 7 days starting 06/29/23
lisinopril 2.5 mg Tablet
2.5 mg PO DAILY
Discharge Orders:
Discharge Patient (As Directed); Ordered 07/04/23
Ordered By: Donta Ocampo
--- NOTE | 2023-07-04 10:50 | CM ---
Addendum entered by Awilda Hurley 07/04/23 11:15:
Ambulance transport time scheduled for 1 pm with Bridgett , daughter Rita updated.
IMM reviewed via phone, she is a CM and does not need a copy.
Original Note:
Patient for d/c to [facility] today. (no auth needed)
[facility]
report [phone]
fax [phone]
Plan:To [facility] via ambulance
== END 2023-07-04 15:29 | DRG 683 ==
LOC: 4 WEST ACU 18:36
PROVIDERS: Clinical Nurse Specialist Family Health; Physician Assistant; ADMITTING PHYSICIAN Hospitalist; EMERGENCY PHYSICIAN Emergency Medicine; FAMILY PHYSICIAN Internal Medicine Geriatric Medicine
DX: N17.9 Acute kidney failure, unspecified (principal); E87.1 Hypo-osmolality and hyponatremia; F03.94 Unspecified dementia, unspecified severity, with anxiety; F05 Delirium due to known physiological condition; J10.1 Influenza due to other identified influenza virus with other respiratory manifestations; R53.1 Weakness; R09.02 Hypoxemia; E86.0 Dehydration; R74.01 Elevation of levels of liver transaminase levels; I10 Essential (primary) hypertension; K21.9 Gastro-esophageal reflux disease without esophagitis; E11.9 Type 2 diabetes mellitus without complications; E78.5 Hyperlipidemia, unspecified; M35.00 Sjogren syndrome, unspecified; F32.A Depression, unspecified; R06.89 Other abnormalities of breathing; R79.89 Other specified abnormal findings of blood chemistry; G47.00 Insomnia, unspecified; Z66 Do not resuscitate; Z11.52 Encounter for screening for COVID-19; Z86.73 Personal history of transient ischemic attack (TIA), and cerebral infarction without residual deficits; Z79.82 Long term (current) use of aspirin; Z79.02 Long term (current) use of antithrombotics/antiplatelets; Z75.1 Person awaiting admission to adequate facility elsewhere
CPT/HCPCS: 70450; 71046; 80053; 81003; 85025; 87070; 87502; 87811; 96360; 97116; 97162; 97166; 99285

== ENCOUNTER 2025-01-21 14:42 | Inpatient (IN) | payer MEDICARE, SELFPAY ==
[2025-01-21] VITALS (8 sets, daily range): BP systolic 109–179; BP diastolic 61–96; BMI 23.6
--- NOTE | 2025-01-21 10:16 | ED.GENMED ---
History of Present Illness
<Marie Quintana PA-C - Last Filed: 01/21/25 18:24>
General
Chief Complaint: Fall
Source: patient
Exam Limitations: none
Time Seen by Provider: 01/21/25 10:03
Nursing documentation reviewed up to this point in time: agreed with
History of Present Illness
History of Present Illness:
Patient is an 84-year-old female with history hypertension, hyperlipidemia, insulin-dependent diabetes, dementia who presents to the emergency department with right hip pain after an unwitnessed fall this morning. Patient states that she was
getting dressed this morning and stood up from her bed to walk to the bathroom when she felt very weak and states that her 'legs gave out from under her'. She has had significant pain in her right hip and unable to bear weight since fall. No one
was there to witness fall however fortunately within 1 hour she was able to get help.
She denies any head strike or loss of consciousness. she denies any preceding chest pain, lightheadedness. She denies any recent fever, chills, productive cough. No headache, neck pain, back pain. No numbness or tingling in extremities or
bowel/bladder incontinence.
Patient is not on any oral anticoagulation.
Review of Systems
<Marie Quintana PA-C - Last Filed: 01/21/25 18:24>
Review of Systems
Allergies reviewed?: Yes
All Other Systems: ROS reviewed and negative except as documented in HPI and ROS
Phy Exam
<Marie Quintana PA-C - Last Filed: 01/21/25 18:24>
Physical Exam
Physical Exam:
GENERAL: No acute distress
HEENT: atraumatic, extraocular muscles intact, no signs of entrapment, dentition intact, no other obvious trauma
NECK: no midline tenderness, normal range of motion, no other obvious trauma
BACK: no midline tenderness, no other obvious trauma
CHEST: no tenderness, no flail segment, no subcutaneous emphysema, no other obvious trauma
LUNGS: clear to auscultation bilaterally
CARDIOVASCULAR: regular rate and rhythm
ABDOMEN: soft, non-tender, no masses, no other obvious trauma
PELVIS: stable
EXTREMITIES: Right lower extremity shortened and externally rotated with reproducible tenderness of right hip and right inguinal region. 2+ palpable right DP pulse with normal sensation. Left lower extremity and bilateral upper extremity
atraumatic and nontender with full range of motion.
NEUROLOGIC: awake, alert x [address], not time, no focal deficits
Course
<Marie Quintana PA-C - Last Filed: 01/21/25 18:24>
Orders/Labs/Results
Orders:
Orders
01/21/25 Breakfast
NPO
Allow oral meds: Yes
Allow clear liquids: No
NPO with Ice Chips: No
01/21/25 10:14
CT Head W/o Iv Contrast Urgent
Comment:
Reason For Exam: s/p unwitnessed fall
Cervical Spine wo Contrast CT [CT Cervical Spine W/o Iv Contr] Urgent
Comment:
Reason For Exam: s/p unwitnessed fall
Acetaminophen [Tylenol] 650 mg PO NOW STA
Hip, Right 2-3 Views [CR Hip - RT w/wo Pel 2-3 Vw*] Urgent
Comment:
Reason For Exam: fall, unable to bear weight
Include a pelvis x-ray?: Yes
01/21/25 10:16
Electrocardiogram (*1) Urgent
Reason for Study: Fatigue / Weakness
EKG- Treatment ONCE
01/21/25 10:22
Complete Blood Count/With Diff Urgent
Comprehensive Metabolic Panel Urgent
Total CK [Creatine Phosphokinase] Urgent
01/21/25 11:13
Troponin I Urgent
01/21/25 12:19
Knee, Right 4 or More Views [CR Knee- Right 4 Or More View*] Urgent
Comment: per ortho
Reason For Exam: fall, R hip fracture
01/21/25 14:09
ORTHOPEDIC CONSULT Routine
Consulting Provider: Dwain Contreras
Was physician already notified: Yes
Reason for consult: fall right trochanteric hip fx
01/21/25 14:10
Admit/Transfer Patient As Directed
Co-Sign Provider:
Level of Care: Inpatient admission
Assign to:: Medical/Surgical
Physician / Group: melissa angel
Diagnosis: unwintnessed fall w/right intertrochanteric fx
Reason for Hospitalization: unwintnessed fall w/right intertrochanteric fx
Expected length of stay greater than two midnights?: Yes
ELOS- Estimated Length of Stay in days: 4
I certify the patient meets the requirements for IP care: Yes
Code Status As Directed
Resuscitation Status: Do not resuscitate
Based on pt advanced directive or healthcare POA form: Yes
DNR Bracelet Application ONCE
01/21/25 14:14
PRN Pain Medication Management As Directed
May give lesser potent ordered pain med per pt: Yes
preference::
Protocol:: Medication orders for pain may be administered in a
manner that supports deferring to patient preference
when the pt is:
- Requesting an ordered lesser potent pain medication.
Least to most potent pain medications are defined
as: acetaminophen < NSAID < tramadol < opioids
(morphine, oxycodone, hydromorphone).
- Requesting a lesser dose of the same medication IF
ORDERED.
- Requesting a less intrusive route of administration
if both routes are prescribed by the provider (PO <
IV).
01/21/25 Dinner
Regular
At Your Request: Full Participation
01/21/25 15:55
Acetaminophen [Tylenol] 650 mg PO Q4HPRN PRN
Bisacodyl [Dulcolax] 10 mg RECTAL [id number] PRN
Docusate W/Senna [Senokot-S] 1 tablet PO BIDPRN PRN
Polyethylene Glycol Powder [Miralax] 17 grams PO DAILYPRN PRN
Tramadol HCl [Ultram] 50 mg PO Q6HPRN PRN
01/21/25 15:55
Case Management Consult ONCE
Case Management Consult: Discharge Planning
Comment: Family requesting [facility] for rehab when patient discharged as she has been there before
Activity As Directed
Activity Level: Bedrest
Pneumatic Compression Sleeves As Directed
Type: Knee high
Vital Signs As Directed
Frequency: Per unit guidelines
Pt Eval And Treat Routine
Treatment: tmr psot surgery
Activity Level: With Assistance
DX Deep Vein Thrombosis Video Routine
01/21/25 18:00
Amlodipine [Norvasc] 2.5 mg PO QPM
Atorvastatin [Lipitor] 40 mg PO QPM
01/21/25 20:00
Bacitracin/Polymyxin B [Polysporin Ointment] 1 applic TOPICAL BID
Calcium Carbonate/Vitamin D3 [Oscal 500 + D] 500 mg PO BID
Metoprolol Xl [Toprol Xl] 25 mg PO BID
cevimeline See Dose Instructions PO BID
01/21/25 22:00
Risperidone [Risperdal] 0.5 mg PO HS
Trazodone [Desyrel] 25 mg PO HS
01/22/25 06:00
Complete Blood Count/With Diff IN AM
Comprehensive Metabolic Panel IN AM
01/22/25 08:00
Cholecalciferol (Vitamin D3) [VITAMIN D3 (cholecalciferol)] 125 mcg PO DAILY
Lisinopril [Zestril] 2.5 mg PO DAILY
Multivitamin [Theragran] 1 tablet PO DAILY
Pantoprazole [Protonix] 40 mg PO DAILY
Paroxetine [Paxil] 20 mg PO DAILY
01/23/25 06:00
Complete Blood Count/With Diff IN AM
Comprehensive Metabolic Panel IN AM
01/24/25 06:00
Complete Blood Count/With Diff IN AM
Comprehensive Metabolic Panel IN AM
Abnormal Lab Results
01/21/25
10:22
RBC 3.37 L 10^6/uL
(4.20-5.40)
Hgb 11.0 L g/dL
(12.0-16.0)
Hct 32.2 L %
(37.0-47.0)
MCH 32.6 H pg
(27.0-31.0)
MPV 10.7 H fL
(7.4-10.4)
Absolute Monos (auto) 0.8 H 10^3/uL
(0.1-0.6)
Monocytes % 9.7 H %
(1.7-9.3)
BUN 19 H mg/dl
(7-17)
Glucose 111 H mg/dl
(70-99)
AST 49 H U/L
(14-36)
ALT 39 H U/L
(0-35)
01/21/25 10:22
01/21/25 10:22
Vital Signs
Initial and Last Documented VS:
Initial Vital Signs
Temp Pulse Resp BP Pulse Ox
98.4 F 65 18 179/71 95
01/21/25 10:04 01/21/25 10:04 01/21/25 10:04 01/21/25 10:04 01/21/25 10:04
Last Documented Vital Signs
Temp Pulse Resp BP Pulse Ox
98.8 F 73 16 172/75 95
01/21/25 15:50 01/21/25 17:32 01/21/25 15:50 01/21/25 17:32 01/21/25 15:50
<Kurt Swanson MD - Last Filed: 01/21/25 10:33>
Orders/Labs/Results
Orders:
Orders
01/21/25 Breakfast
NPO
Allow oral meds: Yes
Allow clear liquids: No
NPO with Ice Chips: No
01/21/25 10:14
CT Head W/o Iv Contrast Urgent
Comment:
Reason For Exam: s/p unwitnessed fall
Cervical Spine wo Contrast CT [CT Cervical Spine W/o Iv Contr] Urgent
Comment:
Reason For Exam: s/p unwitnessed fall
Acetaminophen [Tylenol] 650 mg PO NOW STA
Hip, Right 2-3 Views [CR Hip - RT w/wo Pel 2-3 Vw*] Urgent
Comment:
Reason For Exam: fall, unable to bear weight
Include a pelvis x-ray?: Yes
01/21/25 10:16
Electrocardiogram (*1) Urgent
Reason for Study: Fatigue / Weakness
EKG- Treatment ONCE
01/21/25 10:22
Complete Blood Count/With Diff Urgent
Comprehensive Metabolic Panel Urgent
Total CK [Creatine Phosphokinase] Urgent
01/21/25 11:13
Troponin I Urgent
01/21/25 12:19
Knee, Right 4 or More Views [CR Knee- Right 4 Or More View*] Urgent
Comment: per ortho
Reason For Exam: fall, R hip fracture
01/21/25 14:09
ORTHOPEDIC CONSULT Routine
Consulting Provider: Dwain Contreras
Was physician already notified: Yes
Reason for consult: fall right trochanteric hip fx
01/21/25 14:10
Admit/Transfer Patient As Directed
Co-Sign Provider:
Level of Care: Inpatient admission
Assign to:: Medical/Surgical
Physician / Group: melissa angel
Diagnosis: unwintnessed fall w/right intertrochanteric fx
Reason for Hospitalization: unwintnessed fall w/right intertrochanteric fx
Expected length of stay greater than two midnights?: Yes
ELOS- Estimated Length of Stay in days: 4
I certify the patient meets the requirements for IP care: Yes
Code Status As Directed
Resuscitation Status: Do not resuscitate
Based on pt advanced directive or healthcare POA form: Yes
DNR Bracelet Application ONCE
01/21/25 14:14
PRN Pain Medication Management As Directed
May give lesser potent ordered pain med per pt: Yes
preference::
Protocol:: Medication orders for pain may be administered in a
manner that supports deferring to patient preference
when the pt is:
- Requesting an ordered lesser potent pain medication.
Least to most potent pain medications are defined
as: acetaminophen < NSAID < tramadol < opioids
(morphine, oxycodone, hydromorphone).
- Requesting a lesser dose of the same medication IF
ORDERED.
- Requesting a less intrusive route of administration
if both routes are prescribed by the provider (PO <
IV).
01/21/25 Dinner
Regular
At Your Request: Full Participation
01/21/25 15:55
Acetaminophen [Tylenol] 650 mg PO Q4HPRN PRN
Bisacodyl [Dulcolax] 10 mg RECTAL [id number] PRN
Docusate W/Senna [Senokot-S] 1 tablet PO BIDPRN PRN
Polyethylene Glycol Powder [Miralax] 17 grams PO DAILYPRN PRN
Tramadol HCl [Ultram] 50 mg PO Q6HPRN PRN
01/21/25 15:55
Case Management Consult ONCE
Case Management Consult: Discharge Planning
Comment: Family requesting [facility] for rehab when patient discharged as she has been there before
Activity As Directed
Activity Level: Bedrest
Pneumatic Compression Sleeves As Directed
Type: Knee high
Vital Signs As Directed
Frequency: Per unit guidelines
Pt Eval And Treat Routine
Treatment: tmr psot surgery
Activity Level: With Assistance
DX Deep Vein Thrombosis Video Routine
01/21/25 18:00
Amlodipine [Norvasc] 2.5 mg PO QPM
Atorvastatin [Lipitor] 40 mg PO QPM
01/21/25 20:00
Bacitracin/Polymyxin B [Polysporin Ointment] 1 applic TOPICAL BID
Calcium Carbonate/Vitamin D3 [Oscal 500 + D] 500 mg PO BID
Metoprolol Xl [Toprol Xl] 25 mg PO BID
cevimeline See Dose Instructions PO BID
01/21/25 22:00
Risperidone [Risperdal] 0.5 mg PO HS
Trazodone [Desyrel] 25 mg PO HS
01/22/25 06:00
Complete Blood Count/With Diff IN AM
Comprehensive Metabolic Panel IN AM
01/22/25 08:00
Cholecalciferol (Vitamin D3) [VITAMIN D3 (cholecalciferol)] 125 mcg PO DAILY
Lisinopril [Zestril] 2.5 mg PO DAILY
Multivitamin [Theragran] 1 tablet PO DAILY
Pantoprazole [Protonix] 40 mg PO DAILY
Paroxetine [Paxil] 20 mg PO DAILY
01/23/25 06:00
Complete Blood Count/With Diff IN AM
Comprehensive Metabolic Panel IN AM
01/24/25 06:00
Complete Blood Count/With Diff IN AM
Comprehensive Metabolic Panel IN AM
Abnormal Lab Results
01/21/25
10:22
RBC 3.37 L 10^6/uL
(4.20-5.40)
Hgb 11.0 L g/dL
(12.0-16.0)
Hct 32.2 L %
(37.0-47.0)
MCH 32.6 H pg
(27.0-31.0)
MPV 10.7 H fL
(7.4-10.4)
Absolute Monos (auto) 0.8 H 10^3/uL
(0.1-0.6)
Monocytes % 9.7 H %
(1.7-9.3)
BUN 19 H mg/dl
(7-17)
Glucose 111 H mg/dl
(70-99)
AST 49 H U/L
(14-36)
ALT 39 H U/L
(0-35)
01/21/25 10:22
01/21/25 10:22
Vital Signs
Initial and Last Documented VS:
Initial Vital Signs
Temp Pulse Resp BP Pulse Ox
98.4 F 65 18 179/71 95
01/21/25 10:04 01/21/25 10:04 01/21/25 10:04 01/21/25 10:04 01/21/25 10:04
Last Documented Vital Signs
Temp Pulse Resp BP Pulse Ox
98.8 F 73 16 172/75 95
01/21/25 15:50 01/21/25 17:32 01/21/25 15:50 01/21/25 17:32 01/21/25 15:50
<Marie Quintana PA-C - Last Filed: 01/21/25 18:24>
MDM/Problems Addressed
Differential Diagnosis Includes:
Not limited to: Hip fracture, hip dislocation, pelvic fracture, acute dehydration, cardiac arrhythmia, etc.
MDM/Problems Addressed:
84-year-old female presenting with right hip pain unable to bear weight after fall this morning. Circumstances surrounding fall somewhat uncertain as patient does have history dementia however there may have been a component of lightheadedness
prior to fall. No preceding chest pain or shortness of breath. Patient is not on any oral anticoagulation. On exam�patient alert and oriented x 2 without any focal neurologic deficits. No evidence of head or neck trauma. There is obvious
shortening and external rotation of the right lower extremity with significant tenderness of hip with very limited range of motion. Neurovascular intact. No other evidence of traumatic injuries on exam.
Clinical picture most consistent with hip fracture. Given preceding lightheadedness and uncertain nature regarding fall�will check labs, EKG, cardiac enzymes. Will obtain head/cervical spine CT in addition to xray of right hip.
Update: CBC reveals stable anemia. Chemistry without any acute abnormality other than mild elevation in AST/ALT, nonspecific. No evidence of rhabdomyolysis. EKG reveals normal sinus rhythm.
X-ray confirms right intertrochanteric hip fracture. Discussed with orthopedics, Dr. Contreras. Plan for OR tomorrow for surgical fixation. No traumatic injuries noted on head/cervical spine imaging. In regards to lightheadedness earlier today,
possible dehydration versus orthostasis. Patient will require admission to hospital for hip fracture. Excepted to hospitalist service in stable condition. Patient and patient's family comfortable with plan.
Chronic conditions affecting care:
Hypertension
Acute Exacerbation and/or Progression of Chronic Illness:
Acutely hypertensive
<Marie Quintana PA-C - Last Filed: 01/21/25 18:24>
*Radiology
Radiology exam reviewed: preliminary read by ED provider (Right hip x-ray reviewed by il-intertrochanteric fracture of right hip) and radiology read reviewed
*Pulse Oximetry
SaO2: 95
Oxygen Mode of Delivery: Room air
Patient hypoxic: no
*EKG
Interpreted by ED Provider?: Yes
EKG Intrepretation Date: 01/21/25
Interpretation: abnormal
Comparison EKG: changes noted
Heart Rate: 68
Rate: normal
Rhythm: sinus
Epworth: normal axis
Interval: normal QT interval
QRS Pattern: right bundle branch block
Ischemia: non-specific ST changes
*Chemist Enzymes Interpretation
Rate: normal
Interpretation: normal
Heart Rate: 66
Rhythm: sinus
*Critical Care Note
Total Time (30-74mins, 75-104mins- exclusive of procedures): Not Applicable
<Marie Quintana PA-C - Last Filed: 01/21/25 18:24>
Patient Management
Discussion with other providers: Hospitalist and [employer] (Case discussed with orthopedics)
Escalation/DeEscalation of care consider admission/obs:
Admit for right hip fracture, further management
ED Attending Note
<Marie Quintana PA-C - Last Filed: 01/21/25 18:24>
-
Portions of this chart may have been created with voice recognition software.� Occasional wrong word or��sound alike� substitutions may have occurred due to the inherent limitations of voice recognition software.
<Kurt Swanson MD - Last Filed: 01/21/25 10:33>
ED Attending Note
Patient seen and examined by attending physician: Yes
I performed the substantive portion of visit, reviewed & personally made and approve the management plan that is documented in note by myself or PERCY.: Yes
ED Attending Note:
Patient felt lightheaded dizzy fell to the ground. Not sure if she syncopized. Complaining of right hip pain. No other injury or complaint. Unable to bear weight. Denies headache neck pain chest pain shortness of breath abdominal pain or other
complaints
On exam patient is nontoxic in no distress. Normocephalic atraumatic. Neck nontender. No chest wall tenderness. Breath sounds are equal. Regular rate and rhythm. Abdomen nontender. Pelvis is stable. Tenderness over the greater trochanter.
Right leg is slightly shortened and externally rotated. Pain with the right hip rotation. Right knee ankle within normal limits. Good distal pulses and color. All other extremities negative.
Impression is very likely right hip fracture. Workup in progress. Syncope versus nonspecific dizziness. It is a normal sinus rhythm on the monitor. Labs electrolytes pending.
Discharge Plan
Departure
Patient Disposition: Admit
Date of Disposition: 01/21/25
Time of Disposition: 13:23
Presentation/result/management discussed w/ accepting MD/DO: Hospitalist
Discharge Problem:
Closed intertrochanteric fracture of right femur
Interventions
Interventions:
*Risk Screen - Suicide Last Done: 01/21/25 10:30
*General Assessment Last Done: 01/21/25 10:04
*Neglect/Abuse Screening Last Done: 01/21/25 10:30
*ED- Fall Risk Assessment Last Done: 01/21/25 10:21
*ED COVID-19 Vaccine History Last Done: 01/21/25 16:10
*Nursing Disposition Last Done: 01/21/25 15:35
ED-Musculoskeletal Assessment Last Done: 01/21/25 10:23
ED- Neurological Assessment Last Done: 01/21/25 10:23
ED-Skin Assessment Last Done: 01/21/25 10:25
Discharge Date and Time
Discharge Date/Time: 01/21/25 15:35
--- NOTE | 2025-01-21 10:28 | EDRN ---
Dr. Swanson in room w/ pt at this time.
[2025-01-21 10:29] LABS: Hematocrit 32.2 % (37.0-47.0); Hemoglobin 11.0 g/dL (12.0-16.0); Mean Corp Hgb Conc. 34.2 g/dL (33.0-37.0); Mean Corpuscular Volume 95.5 fL (81.0-99.0); Nucleated Red Blood Cells % 0 %; Platelet Count 141 10^3/uL (130-400); Red Cell Dist. Width 14.1 % (11.5-14.5)
--- NOTE | 2025-01-21 10:30 | EDRN ---
Pt states she was in [place] this am, became dizzy and fell. ? may have passed out as pt not clear about what happened after becoming dizzy. Pt arrives w/ R hip pain at 11/10. Pt has history of dementia per son.
[2025-01-21 10:51] LABS: ALT (SGPT) 39 U/L (0-35); AST (SGOT) 49 U/L (14-36); Albumin 3.9 g/dl (3.5-5.0); Alkaline Phosphatase 98 U/L (38-126); Blood Urea Nitrogen 19 mg/dl (7-17); Calcium 9.6 mg/dl (8.4-10.2); Carbon Dioxide 27 mmol/L (22-30); Chloride 107 mmol/L (98-107); Estimated Creatinine Clearance 44 ml/min; Glucose 111 mg/dl (70-99); Potassium 4.6 mmol/L (3.5-5.1); Sodium 140 mmol/L (135-145); Total Protein 7.5 g/dl (6.3-8.2); eGFR > 60.00
[2025-01-21] MEDS: TYLENOL 650 MG PO (11:10)
[2025-01-21 11:49] LABS: Troponin I < 0.012 ng/ml
--- NOTE | 2025-01-21 13:48 | HPS.HSE ---
Family Physician
-
Family Physician: JOSE SOTO
Chief Complaint
-
Fall, right hip pain
History of Present Illness
84-year-old female from home who states she was getting dressed today her legs felt very weak with some dizziness and gave out from under her. She fell to the ground landing on her right hip. She believes she was there for approximately 1 hour she
denies loss of consciousness. In the ER she was noted to have a Comminuted intertrochanteric fracture of the proximal right femur. The patient denies headache, neck pain, fever, chills, chest pain, palpitations, cough, shortness of breath,
abdominal pain, nausea, vomiting, diarrhea, urinary symptoms. 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
ago per family,Chronic ambulatory dysfunction uses walker at baseline
Medical History
Past Medical History
Past Medical History: Reports Other
Additional Past Medical History:
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
Past Surgical History: Reports Other (Foot surgery, cataract extraction bilaterally)
Additional Past Surgical History:
Right foot surgery
Social History
Tobacco: Non-smoker
Alcohol: None
Drug: None
Personal: Single
Living: Assisted Living ([facility])
Employment: Retired
Family History
Family History: Not pertinent
Allergies / Home Medications
Allergies reflects when Allergies were last updated in [facility].
Home Medications with original date entered in [facility]
Allergy/Medication List:
Allergies
Allergy/AdvReac Type Severity Reaction Status Date / Time
No Known Allergies Allergy Unverified 01/21/25 10:04
Home Medications
acetaminophen 325 mg tablet (Tylenol) 650 mg PO Q6HPRN PRN mild pain 06/30/23
aspirin 81 mg chewable tablet 81 mg PO DAILY Blood Clot Prevention/Tx 06/30/23
calcium 600 mg (as carbonate)-vitamin D3 10 mcg (400 unit) tablet (Calcium 600 + D(3)) 1 tab PO BID Supplement 06/30/23
cevimeline 30 mg capsule 1 cap PO BID 06/30/23
clopidogrel 75 mg tablet (Plavix) 75 mg PO DAILY Blood Clot Prevention/Tx 06/30/23
esomeprazole magnesium 40 mg capsule,delayed release (Nexium) 40 mg PO DAILY Gastrointestinal Issue 06/30/23
metoprolol succinate 25 mg tablet,extended release 24 hr (Toprol XL) 25 mg PO BID Blood Pressure 06/30/23
paroxetine HCl 20 mg tablet (Paxil) 20 mg PO DAILY Depression 06/30/23
risperidone 0.5 mg tablet (Risperdal) 0.5 mg PO HS Mental Health/Anxiety 06/30/23
therapeutic multivitamin 1 tab PO DAILY Supplement 06/30/23
trazodone 50 mg tablet 25 mg PO HS 06/30/23
amlodipine 2.5 mg tablet (Norvasc) 2.5 mg PO QPM Blood Pressure 01/21/25
atorvastatin 40 mg tablet 40 mg PO QPM 01/21/25
cholecalciferol (vitamin D3) 125 mcg (5,000 unit) capsule 125 mcg PO DAILY 01/21/25
lisinopril 2.5 mg tablet 2.5 mg PO DAILY 01/21/25
nystatin 100,000 unit/gram topical powder 1 applic topical BID 01/21/25
Review of Systems
-
History Source: Patient and Family (Daughter at bedside)
A 12 point ROS was completed and negative except as noted: Yes
Constitutional: Denies Fever or Chills
EENT: Denies Sore Throat or Runny Nose
Respiratory: Denies Cough or Trouble Breathing
Cardiac: Denies Chest Pain, Diaphoresis, Palpitations or Syncope
Abdomen/GI: Denies Abdominal Pain, Nausea, Vomiting, Diarrhea, Constipated or Bloody Stools
: Denies Dysuria, Frequency, Flank Pain or Incontinence
Musculoskeletal: Reports Joint Pain (Right hip pain); Denies Edema
Skin: Reports Other (Right great toenail medial aspect slight skin separation from nail with scant blood); Denies Itching or Rash
Neurological: Reports Dizzy; Denies Headache
Endocrine: Reports No Symptoms
Hematologic/Lymphatic: Reports No Symptoms
Psych: Reports Calm
Physical Exam
Vital Signs
Vital Signs
Temp Pulse Resp BP Pulse Ox
98.4 F 68 20 161/61 95
01/21/25 10:04 01/21/25 13:00 01/21/25 13:00 01/21/25 13:00 01/21/25 13:00
Physical Exam
General: Conversant; No Pain, Fever or Chills
HEENT: NormoCephalic, Anicteric, Moist mucous membranes, PERRLA, Tripp Conjunctivae, No Ptosis and Neck Nontender
Respiratory: Clear; No Wheezes, Rales or Rhonchi
Cardiac: S1/S2 and Regular Rhythm; No Murmur, Rub, Gallop or Peripheral Edema
GI: Soft, Non Tender, Non Distended, Normal Bowel Sounds and No Hepatosplenomegaly
Rectal: Deferred by Provider
Genito-urinary: Deferred by me
Musculoskeletal: No Clubbing, No Cyanosis, No Edema and Other (Right great toenail medial aspect slight skin separation from nail with scant blood)
Skin: Warm, Dry and Other (Nonpruritic macular nickel sized rash mid chest)
Neuro: Awake, Alert, Oriented (To name, daughter, thinks it is her son's wedding tonight although with her grandsons has history of dementia), Cranial Nerves Intact, No Sensory Deficits and Other (Limited range of motion right leg due to right hip
fracture); No Slurred Speech, Facial Droop, Tremors or Sedated
Psych: Calm
Laboratory Results
-
01/21/25 10:22
01/21/25 10:22
Laboratory Results
Total Bilirubin 0.8 mg/dl (0.2-1.3) 01/21/25 10:22
AST 49 U/L (14-36) H 01/21/25 10:22
ALT 39 U/L (0-35) H 01/21/25 10:22
Alkaline Phosphatase 98 U/L (38-126) 01/21/25 10:22
Troponin I < 0.012 ng/ml 01/21/25 11:13
Impression/Plan
-
Impression/plan:
Admit to MedSurg
# Unwitnessed fall with right comminuted intertrochanteric fracture of the proximal right femur
#Chronic ambulatory dysfunction uses walker at baseline
- Bedrest
- Pain control
- N.p.o. after midnight 4 OR tomorrow 01/22/2025
- Consult Ortho Dr. Contreras aware
-Tylenol, tramadol as needed
- PT/OT/case management consult
- Will check orthostatic vitals when patient is ambulating postsurgery
X-ray right hip:There is a comminuted intertrochanteric fracture of the proximal right femur.
CT head:No acute intracranial abnormality noted.
Mild atrophy. Stable
Mild periventricular small vessel ischemic disease. Stable.
Old left thalamic lacunar infarct. Stable.
Mild nonacute sinusitis. Stable.
#Right great toenail medial aspect slight skin separation from nail with scant blood
- Will apply bacitracin ointment monitor for infection
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
Hold aspirin, Plavix continue atorvastatin
Chronic anemia normocytic
Hgb 11 appears near baseline, MCV 95.5
Chronic transaminitis
AST 49, ALT 39 will follow appears near baseline
#Dementia hx
-Fall precautions
#HTN-benign
-BP 161/61 > 144/62
-Continue Norvasc 2.5 mg daily, metoprolol ER 25 mg twice daily
Will check orthostatic vitals once patient is ambulatory postsurgery
#TIA hx/CVA
-Continue aspirin, Plavix hold current Lipitor and Zetia given transaminitis
#GERD
-Continue Nexium
#Anxiety/depression
-Continue risperidone 0.5 mg at bedtime, Paxil 20 mg daily
#Sjrogens syndrome
#Insomnia
-Continue trazodone 25 mg at bedtime hold if sedated recently had decreased 1 week ago
# Influenza A June 2023 requiring hospitalization due to hypoxia
DVT prophylaxis
- SCDs
DNR per prior admission
--- NOTE | 2025-01-21 13:55 | EDRN ---
Jeronimo Potter PLUG ASSEMBLER in room w/ pt w/ hospitalist group.
--- NOTE | 2025-01-21 14:58 | EDRN ---
Pt's depends was saturated and changed w/ purewyck placed at this time.
--- NOTE | 2025-01-21 14:58 | CM ---
CM reviewed chart and met with pt and daughter bedside in ED. Resides in Dementia Unit at [facility] in [place] for past 4 years.
Independent in ambulation with RW, needs assistance with ADLs and personal care.
Daughter is interested in STR at [facility] if pt qualifies.
Confirms prescription coverage.
PCP: Santana Montana
Pharmacy: meds supplied by [facility], [facility]
CM will continue to follow for any discharge planning needs.
--- NOTE | 2025-01-21 15:05 | EDRN ---
Dr. Webb in room w/pt.
--- NOTE | 2025-01-21 15:28 | W.PN.UPDATE ---
Update Note
Progress Note Update
This is an addendum to H&P written by Muriel Potter on 01/21/2025. �Patient seen and examined independently with MUSHROOM SORTER GRADER.
84-year-old female past medical history of dementia, TIA/CVA 4 years ago, hypertension, GERD, Sjogren's, anxiety, depression, chronic anemia, chronic amatory dysfunction, presenting with dizziness and fall falling on her right side.
Blood pressure as high as 179/71.
Labs show stable anemia. �Mild transaminitis. �EKG shows normal sinus rhythm.
Hip x-ray shows comminuted intertrochanteric fracture of the proximal right femur. �Knee x-ray no acute injury. �CT head shows no acute abnormality.
Patient with right hip fracture after a fall. �Fall could be secondary to orthostatic hypotension.
Pain control with Tylenol, tramadol. �N.p.o. postmidnight for surgery tomorrow as per Ortho. �Hold aspirin and Plavix. �Check orthostatic vital signs.
[2025-01-21] MEDS: NORVASC 2.5 MG PO (17:32)
[2025-01-21] MEDS: LIPITOR 40 MG PO (17:32)
--- NOTE | 2025-01-21 20:03 | PTCARENOTE ---
Patient refusing sitz bath at this time. Stated that she would prefer to start them in the morning.
[2025-01-21] MEDS: TOPROL XL 25 MG PO (20:44)
[2025-01-21] MEDS: OSCAL 500 + D 500 MG PO (20:44)
[2025-01-21] MEDS: POLYSPORIN OINTMENT 1 APPLIC TOPICAL (20:45)
[2025-01-21] MEDS: DESYREL 25 MG PO (20:45)
[2025-01-21] MEDS: RISPERDAL 0.5 MG PO (20:45)
[2025-01-22] VITALS (11 sets, daily range): BP systolic 114–154; BP diastolic 48–64
[2025-01-22] MEDS: ULTRAM 50 MG PO (02:55)
[2025-01-22 06:49] LABS: Hematocrit 31.3 % (37.0-47.0); Hemoglobin 11.0 g/dL (12.0-16.0); Mean Corp Hgb Conc. 35.1 g/dL (33.0-37.0); Mean Corpuscular Volume 93.7 fL (81.0-99.0); Nucleated Red Blood Cells % 0 %; Platelet Count 143 10^3/uL (130-400); Red Cell Dist. Width 13.5 % (11.5-14.5)
[2025-01-22 07:16] LABS: ALT (SGPT) 36 U/L (0-35); AST (SGOT) 44 U/L (14-36); Albumin 3.8 g/dl (3.5-5.0); Alkaline Phosphatase 79 U/L (38-126); Blood Urea Nitrogen 20 mg/dl (7-17); Calcium 9.7 mg/dl (8.4-10.2); Carbon Dioxide 24 mmol/L (22-30); Chloride 104 mmol/L (98-107); Estimated Creatinine Clearance 51 ml/min; Glucose 149 mg/dl (70-99); Potassium 4.4 mmol/L (3.5-5.1); Sodium 136 mmol/L (135-145); Total Protein 7.5 g/dl (6.3-8.2); eGFR > 60.00
--- NOTE | 2025-01-22 07:55 | W.PN.UPDATE ---
Update Note
Progress Note Update
Patient seen and examined. Chart reviewed.
84 yo F with RLE pertrochanteric femur fracture
NWB RLE
NPO
Hold anticoagulation
pain control
medical management per primary team
Plan: To OR today for R hip CMN pending OR availability and medical clearance
Formal consult note to follow
[2025-01-22] MEDS: TOPROL XL 25 MG PO ×2 (08:37→19:31)
[2025-01-22] MEDS: ZESTRIL 2.5 MG PO (08:37)
[2025-01-22] MEDS: THERAGRAN 1 TABLET PO (08:37)
[2025-01-22] MEDS: PROTONIX 40 MG PO (08:38)
[2025-01-22] MEDS: PAXIL 20 MG PO (08:38)
[2025-01-22] MEDS: POLYSPORIN OINTMENT 1 APPLIC TOPICAL ×2 (08:38→19:31)
[2025-01-22] MEDS: VITAMIN D3 (cholecalciferol) 125 MCG PO (08:38)
[2025-01-22] MEDS: OSCAL 500 + D 500 MG PO ×2 (08:38→19:31)
--- NOTE | 2025-01-22 10:49 | W.PN.HOSP.TC ---
Today's Communication/Plan
-
N.p.o.
Assessment / Plan
Assessment / Plan
Gen-awake, alert, NAD
HEENT-NC, AT, anicteric, clear oral mm
Neck-supple
CV-reg, no M, +S1/S2
Lungs-clear B/L
Abd-soft, NT, ND
Ext-no edema
Musculoskeletal-no cyanosis, clubbing
Skin-warm and dry
Neuro-grossly non-focal
Psych-calm, cooperative
Acute traumatic right intertrochanteric hip fracture -due to fall and underlying osteoporosis. Keep n.p.o., awaiting orthopedic surgery today.
Admission EKG shows normal sinus rhythm, incomplete right bundle branch block, LVH. No previous EKGs available.
Appears medically stable for surgery.
Leukocytosis noted, suspect leukemoid reaction. Afebrile, nontoxic.
Essential hypertension -blood pressure elevated due to pain. Resume antihypertensives.
Hyperlipidemia -atorvastatin.
Elevated transaminases -appears chronic. Unclear etiology. Monitor for now. No need to discontinue atorvastatin given mild elevation.
History of stroke -on dual antiplatelet therapy. Would resume aspirin if okay with orthopedics.
GERD
Sj�gren's syndrome
Chronic anemia -hemoglobin at baseline.
Dementia without behavioral disturbance
Anxiety/depression
DNR
PT/OT postoperatively.
Anticipated Discharge: > 48 hours
Subjective/Interval History
-
Date of Service: January 22, 2025
Patient seen and examined. Complaining of right hip pain.
Objective Data
-
Labs:
Laboratory Results
01/22/25
06:34
WBC 15.0 H
Hgb 11.0 L
Hct 31.3 L
Plt Count 143
Sodium 136
Potassium 4.4
Chloride 104
Carbon Dioxide 24
BUN 20 H
Creatinine 0.7
Glucose 149 H
Calcium 9.7
Total Bilirubin 1.1
AST 44 H
ALT 36 H
Alkaline Phosphatase 79
Vital Signs:
Vital Signs
Temp Pulse Resp BP Pulse Ox
98.3 F 82 14 164/74 95
01/22/25 07:35 01/22/25 08:37 01/22/25 07:35 01/22/25 08:37 01/22/25 07:35
I&O
01/21/25 01/22/25 01/23/25
06:59 06:59 06:59
Intake Total 120 / 120
Output Total 400 / 400
Balance -280 / -280
Review of Systems
-
History Source: Patient
All other systems: Reviewed and negative
--- NOTE | 2025-01-22 11:20 | CM ---
Addendum entered by Marnie Méndez 01/22/25 13:50:
family added [facility] and [facility] as additional SNF options, referrals sent awaiting responses.
Original Note:
Consult for received for referral to [facility], referral sent patient for surgery today and will need assessment from therapy following surgery. CM will update referral with additional information following surgery. Patient has been a resident
at [facility] in [place] prior to admission, and per nursing patient has been at SNF; [facility] now [facility] previously. CM will continue to follow for discharge planning needs.
Plan; SNF; pending medical treatment center and therapy recommendations
--- NOTE | 2025-01-22 13:31 | OR.RPT ---
Operative Report
Operative Report
Date
01/22/2025
Anesthesia Type:
General
Operative Indications:
Right
Intertrochanteric femur fracture
Operative Findings :
Same
Complications:
None
Implants:
Geoffrey gamma 4 short nail, 125 degree x 10 mm
Procedure and Technique:
Insertion right short cephalomedullary nail
INDICATIONS FOR PROCEDURE:
84-year-old patient history of dementia presented status post mechanical fall. They were subsequently diagnosed with a peritrochanteric femur fracture. Orthopedics was consulted for further evaluation and treatment. After discussion with the
patient and family, the decision was made to proceed with operative intervention in the form of short cephalomedullary nail. A long discussion was had regarding risks and benefits of procedure. Risks include but are not limited to infection,
blood loss, damage to surrounding structures, persistent pain, loss of function, need for repeat surgery, implant cut out, periprosthetic fracture, DVT/PE and adverse risks of anesthesia. Benefits include early mobilization and fracture
stabilization. After discussion written informed consent was obtained.
OPERATIVE PROCEDURE:
The patient was seen and identified in the preoperative holding area. The operative extremity was marked and all questions were addressed with the patient. Patient was taken to the operating room and provided anesthesia by the anesthesia team.
They were placed supine on a radiolucent fracture table. The nonoperative extremity was placed in a scissored position and well padded to the contralalteral post of the fracture table. Operative extremity was placed in a well-padded fracture boot.
Biplanar fluoroscopy confirmed appropriate reduction after axial traction, adduction and slight internal rotation of the operative extremity. Operative extremity was then prepped and draped in normal sterile fashion. Timeout was performed again
identifying the operative extremity correctly. Preoperative antibiotics were addressed.
A small incision was made several fingerbreadths proximal to the greater trochanter. Sharp dissection was carried through skin and subcutaneous tissues and deep fascial layers. Guidepin was then inserted under biplanar fluoroscopic guidance
through the tip of the greater trochanter in accordance with the implant's operative technique. This was inserted to a depth just distal to the lesser trochanter. Proximal opening reamer was then utilized. A short cephalomedullary nail was then
inserted to the appropriate depth. Trocar was then inserted through the aiming arm. Sharp dissection was then carried through skin and subcutaneous tissues as well as deep fascial layers for an additional stab incision for the cephalomedullary
screw. Guidewire was inserted through the trocar into the femoral neck and head. Appropriate position was confirmed under biplanar fluoroscopy. Attention was made to minimize the tip apex distance. Measurements were obtained for the
cephalomedullary screw. Cannulated drill was then utilized to the appropriate depth followed by the insertion of cannulated cephalomedullary screw. Appropriate final position of the screw within the confines of the femoral neck and head was
confirmed again on biplanar fluoroscopy. Additional trocar was then inserted through the aiming arm for the distal interlocking screw. Sharp dissection was carried through skin, subcutaneous tissues and deep fascial layers. Appropriate length
interlocking screw was then drilled and inserted. Final appropriate positioning was confirmed again on biplanar fluoroscopy. Satisfied with the extent of surgery, wounds were copiously irrigated with normal saline solution and closed in a layered
fashion utilizing 0 Vicryl for deep fascial layer, 2-0 Vicryl for subcu cutaneous layer and silverio for skin. Sterile dressings were applied. Anesthesia was reversed and patient was taken to the operating room in a stable condition.
Disposition:
PACU stable condition
--- NOTE | 2025-01-22 13:32 | CON.ORTHO ---
Consultation
-
Date/Time Consultation Performed: 745 am 01/22/2025
Consultation - Orthopedics
History
HPI: 84-year-old female history of dementia is presented to emergency department status post fall with complaints of right hip pain and inability to bear weight. She was subsequently diagnosed with a right peritrochanteric femur fracture. She was
admitted to the medical service. Orthopedics was consulted for further evaluation and treatment. This morning patient is really unable to provide any meaningful history given her history of dementia. History is obtained from chart review. She
does reside at a memory care unit.
Allergies / Home Medications
Past medical history: TIA/CVA, hypertension, GERD, Sjogren syndrome, anxiety depression, dementia
Past surgical history: Foot surgery, cataract surgery bilaterally
Social history: Non-smoker, lives memory unit assisted living
Family history: Not pertinent
Allergy/AdvReac Type Severity Reaction Status Date / Time
No Known Allergies Allergy Unverified 01/21/25 10:04
�Medication �Instructions �Recorded
acetaminophen 325 mg tablet 650 mg PO Q6HPRN PRN mild pain 06/30/23
(Tylenol)
aspirin 81 mg chewable tablet 81 mg PO DAILY Blood Clot 06/30/23
Prevention/Tx
calcium 600 mg (as 1 tab PO BID Supplement 06/30/23
carbonate)-vitamin D3 10 mcg (400
unit) tablet (Calcium 600 + D(3))
cevimeline 30 mg capsule 1 cap PO BID 06/30/23
clopidogrel 75 mg tablet (Plavix) 75 mg PO DAILY Blood Clot 06/30/23
Prevention/Tx
esomeprazole magnesium 40 mg 40 mg PO DAILY Gastrointestinal 06/30/23
capsule,delayed release (Nexium) Issue
metoprolol succinate 25 mg 25 mg PO BID Blood Pressure 06/30/23
tablet,extended release 24 hr
(Toprol XL)
paroxetine HCl 20 mg tablet (Paxil) 20 mg PO DAILY Depression 06/30/23
risperidone 0.5 mg tablet 0.5 mg PO HS Mental Health/Anxiety 06/30/23
(Risperdal)
therapeutic multivitamin 1 tab PO DAILY Supplement 06/30/23
trazodone 50 mg tablet 25 mg PO HS Sleep 06/30/23
amlodipine 2.5 mg tablet (Norvasc) 2.5 mg PO QPM Blood Pressure 01/21/25
atorvastatin 40 mg tablet 40 mg PO QPM High Cholesterol 01/21/25
cholecalciferol (vitamin D3) 125 125 mcg PO DAILY Supplement 01/21/25
mcg (5,000 unit) capsule
lisinopril 2.5 mg tablet 2.5 mg PO DAILY Blood Pressure 01/21/25
nystatin 100,000 unit/gram topical 1 applic topical BID Infection 01/21/25
powder
Vital Signs / Lab Results
Temp Pulse Resp BP Pulse Ox
98.3 F 72 16 143/58 94
01/22/25 11:20 01/22/25 11:20 01/22/25 11:20 01/22/25 11:20 01/22/25 11:20
01/22/25 06:34
01/22/25 06:34
10 point review of systems unable to be obtained secondary to mental status
General: Pleasantly confused, no acute distress supine in bed this morning
Musculoskeletal right lower extremity
Skin intact, no erythema or ecchymotic staining visible on inspection
Extremity shortened externally rotated
There is visible grimace with palpation lateral trochanteric flare and groin
No palpable ipsilateral knee effusion
Positive EHL, FHL, ankle dorsiflexion, plantarflexion spontaneously
Unable to perform detailed sensory examination secondary mental status
Brisk cap refill
No other areas of palpable crepitus or visible grimace long bones or joints on tertiary examination
Diagnostic studies
X-rays right hip independently viewed by myself reveal a mildly comminuted right peritrochanteric femur fracture
Assessment / Plan
84-year-old female history of dementia status post fall with right peritrochanteric femur fracture. I did have a long detailed discussion with the patient's son who is her medical power of assistant prosecuting attorney regarding diagnosis and treatment options.
Discussed postsurgical nonsurgical options. After discussion mutually to proceed with surgical intervention. We discussed risks benefits and alternatives of surgery. We discussed the usual expected perioperative postoperative course. No
guarantees were given. After discussion written informed consent was obtained.
Nonweightbearing right lower extremity
PT OT
Pain control
N.p.o.
Please hold anticoagulation
Plan: 2 OR today for operative fixation right peritrochanteric femur fracture pending or availability medical clearance
[2025-01-22] MEDS: NSS 1000 IV (14:39)
[2025-01-22] MEDS: ASPIR LOW (ENTERIC COATED) 81 MG PO (14:39)
[2025-01-22] MEDS: LIPITOR 40 MG PO (17:32)
[2025-01-22] MEDS: NORVASC 2.5 MG PO (17:33)
[2025-01-22] MEDS: ANCEF 5 IV (19:31)
[2025-01-22] MEDS: COLACE 100 MG PO (19:32)
[2025-01-22] MEDS: RISPERDAL 0.5 MG PO (21:31)
[2025-01-22] MEDS: DESYREL 25 MG PO (21:31)
[2025-01-23] VITALS (7 sets, daily range): BP systolic 109–125; BP diastolic 42–54; PULSE 67; O2SAT 98
[2025-01-23] MEDS: NSS 1000 IV ×2 (00:08→09:04)
[2025-01-23] MEDS: ANCEF 5 IV (03:53)
[2025-01-23] MEDS: TYLENOL 650 MG PO ×2 (05:23→18:18)
--- NOTE | 2025-01-23 07:12 | W.PN.ORTHO ---
Today's Communication / Plan
-
84-year-old female postop day 1 status post right cephalomedullary nail fixation right peritrochanteric femur fracture doing well
Weightbearing as tolerated right lower extremity
PT OT
Pain control
DVT prophylaxis recommend Lovenox renally dosed 28 days
Medical management per primary team
Plan: Follow-up outpatient 2 to 3 weeks repeat clinical assessment removal of silverio
Subjective
.
.:
Patient somewhat confused although she does verbalize that she is feeling better than she was previously.
Vital Signs and Labs
.
Vital Signs and Labs:
Temp Pulse Resp BP Pulse Ox
98.6 F 62 16 125/47 90
01/23/25 03:05 01/23/25 03:05 01/23/25 03:05 01/23/25 03:05 01/23/25 03:05
Physical Exam
-
Musculoskeletal right lower extremity
Dressing with minimal bloody drainage
Mild swelling right thigh
Patient spontaneously moving toes and ankle
Brisk cap refill
[2025-01-23 08:06] LABS: Hematocrit 26.6 % (37.0-47.0); Hemoglobin 9.1 g/dL (12.0-16.0); Mean Corp Hgb Conc. 34.2 g/dL (33.0-37.0); Mean Corpuscular Volume 98.2 fL (81.0-99.0); Nucleated Red Blood Cells % 0 %; Platelet Count 135 10^3/uL (130-400); Red Cell Dist. Width 14.0 % (11.5-14.5)
[2025-01-23 08:15] LABS: ALT (SGPT) 24 U/L (0-35); AST (SGOT) 33 U/L (14-36); Albumin 3.3 g/dl (3.5-5.0); Alkaline Phosphatase 66 U/L (38-126); Blood Urea Nitrogen 23 mg/dl (7-17); Calcium 8.8 mg/dl (8.4-10.2); Carbon Dioxide 27 mmol/L (22-30); Chloride 105 mmol/L (98-107); Estimated Creatinine Clearance 44 ml/min; Glucose 120 mg/dl (70-99); Potassium 4.0 mmol/L (3.5-5.1); Sodium 137 mmol/L (135-145); Total Protein 6.6 g/dl (6.3-8.2); eGFR > 60.00
[2025-01-23] MEDS: THERAGRAN 1 TABLET PO (09:08)
[2025-01-23] MEDS: LOVENOX 40 MG SC (09:08)
[2025-01-23] MEDS: POLYSPORIN OINTMENT 1 APPLIC TOPICAL ×2 (09:09→19:49)
[2025-01-23] MEDS: ASPIR LOW (ENTERIC COATED) 81 MG PO (09:09)
[2025-01-23] MEDS: VITAMIN D3 (cholecalciferol) 125 MCG PO (09:10)
[2025-01-23] MEDS: PAXIL 20 MG PO (09:10)
[2025-01-23] MEDS: OSCAL 500 + D 500 MG PO ×2 (09:10→19:49)
[2025-01-23] MEDS: PROTONIX 40 MG PO (09:10)
[2025-01-23] MEDS: COLACE 100 MG PO ×2 (09:10→19:49)
[2025-01-23] MEDS: TOPROL XL 25 MG PO ×2 (09:11→19:49)
[2025-01-23] MEDS: ZESTRIL 2.5 MG PO (09:11)
--- NOTE | 2025-01-23 11:57 | W.PN.HOSP.TC ---
Today's Communication/Plan
-
Monitor vitals
See plan
Pain control
PT/OT
Discharge planning
Monitor hemoglobin
Restart Plavix, discussed with orthopedics
Assessment / Plan
Assessment / Plan
Gen-awake, alert, NAD
HEENT-NC, AT, anicteric, clear oral mm
Neck-supple
CV-reg, no M, +S1/S2
Lungs-clear B/L
Abd-soft, NT, ND
Ext-no edema
Neuro-grossly non-focal
Psych-calm, cooperative
Acute traumatic right intertrochanteric hip fracture -due to fall and underlying osteoporosis. s/p right cephalomedullary nail fixation right peritrochanteric femur fracture
Admission EKG shows normal sinus rhythm, incomplete right bundle branch block, LVH
Leukocytosis noted, suspect leukemoid reaction. Afebrile, nontoxic.
Essential hypertension -blood pressure elevated due to pain. Resume antihypertensives.
Hyperlipidemia -atorvastatin.
Elevated transaminases -appears chronic. Unclear etiology. Monitor for now. No need to discontinue atorvastatin given mild elevation.
History of stroke -on dual antiplatelet therapy. Continue aspirin, restart Plavix, ok'ed by ortho
GERD
Sj�gren's syndrome
Chronic anemia
Suspect some anemia is also secondary to acute blood loss due to recent fracture and surgery
Monitor
Dementia without behavioral disturbance
Anxiety/depression
DNR
PT/OT postoperatively.
Anticipated Discharge: Within 24 hours
Subjective/Interval History
-
Date of Service: January 23, 2025
denies pain
Objective Data
-
Labs:
Laboratory Results
01/23/25
07:21
WBC 12.7 H
Hgb 9.1 L
Hct 26.6 L
Plt Count 135
Sodium 137
Potassium 4.0
Chloride 105
Carbon Dioxide 27
BUN 23 H
Creatinine 0.8
Glucose 120 H
Calcium 8.8
Total Bilirubin 0.6
AST 33
ALT 24
Alkaline Phosphatase 66
Vital Signs:
Vital Signs
Temp Pulse Resp BP Pulse Ox
98.2 F 67 18 120/53 92
01/23/25 07:35 01/23/25 09:11 01/23/25 07:35 01/23/25 09:11 01/23/25 09:00
I&O
01/22/25 01/23/25 01/24/25
06:59 06:59 06:59
Intake Total 120 / 120 0 / 1670
Output Total 400 / 400
Balance -280 / -280 1669 / 0
--- NOTE | 2025-01-23 13:25 | CM ---
Reviewed the chart notes. Sent updated referral with PT/OT notes. CM continues to be available to patient/family and is monitoring medical plan for needs at discharge.
Plan: Discharge to SNF/rehab once bed secured and precert obtained.
[2025-01-23] MEDS: PLAVIX 75 MG PO (13:54)
[2025-01-23] MEDS: NORVASC 2.5 MG PO (18:14)
[2025-01-23] MEDS: LIPITOR 40 MG PO (18:14)
[2025-01-23] MEDS: RISPERDAL 0.5 MG PO (21:54)
[2025-01-23] MEDS: DESYREL 25 MG PO (21:54)
[2025-01-24 07:10] LABS: Hematocrit 23.7 % (37.0-47.0); Hemoglobin 7.9 g/dL (12.0-16.0); Mean Corp Hgb Conc. 33.3 g/dL (33.0-37.0); Mean Corpuscular Volume 96.7 fL (81.0-99.0); Nucleated Red Blood Cells % 0 %; Platelet Count 130 10^3/uL (130-400); Red Cell Dist. Width 14.0 % (11.5-14.5)
[2025-01-24 07:42] LABS: ALT (SGPT) 25 U/L (0-35); AST (SGOT) 39 U/L (14-36); Albumin 3.1 g/dl (3.5-5.0); Alkaline Phosphatase 70 U/L (38-126); Blood Urea Nitrogen 22 mg/dl (7-17); Calcium 8.6 mg/dl (8.4-10.2); Carbon Dioxide 26 mmol/L (22-30); Chloride 107 mmol/L (98-107); Estimated Creatinine Clearance 44 ml/min; Glucose 124 mg/dl (70-99); Potassium 4.2 mmol/L (3.5-5.1); Sodium 137 mmol/L (135-145); Total Protein 6.4 g/dl (6.3-8.2); eGFR > 60.00
[2025-01-24 07:50] VITALS: BP 158/59
[2025-01-24] MEDS: TOPROL XL 25 MG PO (09:33)
[2025-01-24] MEDS: POLYSPORIN OINTMENT 1 APPLIC TOPICAL (09:33)
[2025-01-24] MEDS: COLACE 100 MG PO (09:33)
[2025-01-24] MEDS: ZESTRIL 2.5 MG PO (09:33)
[2025-01-24] MEDS: ASPIR LOW (ENTERIC COATED) 81 MG PO (09:33)
[2025-01-24] MEDS: PAXIL 20 MG PO (09:34)
[2025-01-24] MEDS: LOVENOX 40 MG SC (09:34)
[2025-01-24] MEDS: VITAMIN D3 (cholecalciferol) 125 MCG PO (09:34)
[2025-01-24] MEDS: OSCAL 500 + D 500 MG PO (09:34)
[2025-01-24] MEDS: PROTONIX 40 MG PO (09:34)
[2025-01-24] MEDS: THERAGRAN 1 TABLET PO (09:34)
[2025-01-24] MEDS: PLAVIX 75 MG PO (09:34)
--- NOTE | 2025-01-24 09:43 | CM ---
Addendum entered by Blanca Thomas RN 01/24/25 10:46:
Call report to: [phone]
Fax report to: [phone]
Medical necessity and transport forms on chart.
Original Note:
Reviewed the chart notes and spoke with the patient at the bedside. IMM reviewed. [facility] has accepted the patient in [facility]. Left voice message for Cindi, patient's [id number] for call back to discuss discharge plan. CM continues to be
available to patient/family and is monitoring medical plan for needs at discharge.
Plan: Discharge to [facility]. No precert required.
[2025-01-24 11:01] LABS: Hematocrit 23.7 % (37.0-47.0); Hemoglobin 8.1 g/dL (12.0-16.0)
--- NOTE | 2025-01-24 11:23 | W.PN.HOSP.TC ---
Today's Communication/Plan
-
monitor vitals
see plan
repeat hgb 8.1; no signs of bleeding
dc today
discussed with son
time of discharge 37 minutes
Assessment / Plan
Assessment / Plan
Gen-awake, alert, NAD
HEENT-NC, AT, anicteric, clear oral mm
Neck-supple
CV-reg, no M, +S1/S2
Lungs-clear B/L
Abd-soft, NT, ND
Ext-no edema
Neuro-grossly non-focal
Psych-calm, cooperative
Acute traumatic right intertrochanteric hip fracture -due to fall and underlying osteoporosis. s/p right cephalomedullary nail fixation right peritrochanteric femur fracture
Admission EKG shows normal sinus rhythm, incomplete right bundle branch block, LVH
Leukocytosis noted, suspect leukemoid reaction. Afebrile, nontoxic.
Essential hypertension -blood pressure elevated due to pain. Resume antihypertensives.
Hyperlipidemia -atorvastatin.
Elevated transaminases -appears chronic. Unclear etiology. Monitor for now. No need to discontinue atorvastatin given mild elevation.
History of stroke -on dual antiplatelet therapy. Continue aspirin, restart Plavix, ok'ed by ortho
GERD
Sj�gren's syndrome
Chronic anemia
Suspect some anemia is also secondary to acute blood loss due to recent fracture and surgery
Monitor
repeat hgb 8.1; no signs of bleeding
Dementia without behavioral disturbance
Anxiety/depression
DNR
PT/OT rec SNF
Anticipated Discharge: Today
Subjective/Interval History
-
Date of Service: January 24, 2025
denies pain
Objective Data
-
Labs:
Laboratory Results
01/24/25 01/24/25
06:42 10:39
WBC 10.2
Hgb 7.9 L 8.1 L
Hct 23.7 L 23.7 L
Plt Count 130
Sodium 137
Potassium 4.2
Chloride 107
Carbon Dioxide 26
BUN 22 H
Creatinine 0.8
Glucose 124 H
Calcium 8.6
Total Bilirubin 0.7
AST 39 H
ALT 25
Alkaline Phosphatase 70
Vital Signs:
Vital Signs
Temp Pulse Resp BP Pulse Ox
98.8 F 83 18 158/59 95
01/24/25 07:50 01/24/25 07:50 01/24/25 07:50 01/24/25 07:50 01/24/25 07:50
I&O
01/23/25 01/24/25 01/25/25
06:59 06:59 06:59
Intake Total 1670 / 1670 1320 / 1320
Balance 1670 / 1670 1320 / 1320
--- NOTE | 2025-01-24 11:30 | W.DCSUMMARY ---
Discharge Summary
Discharge Data
Date of Admission: 01/21/25
Date of Discharge: 01/24/25
-
Pending Results: No
Hospital Course
84-year-old female with past medical history of anxiety, depression, dementia, chronic anemia, Sjogren syndrome, GERD, CVA, hyperlipidemia, hypertension came to the hospital after a fall with acute traumatic right intertrochanteric hip fracture.
Patient was seen by orthopedics and was taken to the OR for surgery. Postop patient was evaluated by physical therapy who recommended SNF. Patient hemoglobin was also low which was likely thought was secondary to IV fluids along with recent
surgery. Her discharge hemoglobin continue to improve. Once she had placement, she was then discharged to SNF with instructions to follow-up with all her physicians outpatient.
Discharge Plan
-
Patient Disposition: Assisted/SNF
Discharge Diagnosis/Procedures: Acute traumatic right intertrochanteric hip fracture -due to fall and underlying osteoporosis. s/p right cephalomedullary nail fixation right peritrochanteric femur fracture
Anemia
Diet: As tolerated
Activity: With assistance and As tolerated
Driving Restrictions: Not until seen by your Dr
Blood Work: CBC next week with primary care provider
Activity Restrictions/Additional Instructions:
Follow-up outpatient 2 to 3 weeks repeat clinical assessment removal of silverio
DVT prophylaxis recommend Lovenox renally dosed 28 days
Weightbearing as tolerated right lower extremity
Referrals:
NONE,* [Family Provider, Internal Medicine] - in less than 1 week
Dwain Contreras MD [Active, Orthopedics] - in two weeks
Prescriptions:
New
polyethylene glycol 3350 17 gram Powder In Packet
17 g PO DAILYPRN PRN (Reason: constipation) Qty: 0 0RF
tramadol 50 mg Tablet
50 mg PO Q6HPRN PRN (Reason: moderate to severe pain) Qty: 12 0RF
docusate sodium 100 mg Capsule
100 mg PO BID Qty: 0 0RF
Polysporin 500-10,000 unit/gram Ointment In Packet
1 applic topical BID Qty: 0 0RF
Continued
acetaminophen [Tylenol] 325 mg Tablet
650 mg PO Q6HPRN PRN (Reason: mild pain)
trazodone 50 mg Tablet
25 mg PO HS
therapeutic multivitamin Tablet
1 tab PO DAILY
clopidogrel [Plavix] 75 mg Tablet
75 mg PO DAILY
paroxetine HCl [Paxil] 20 mg Tablet
20 mg PO DAILY
esomeprazole magnesium [Nexium] 40 mg Capsule,Delayed Release(Dr/Ec)
40 mg PO DAILY
cevimeline 30 mg Capsule
1 cap PO BID
aspirin 81 mg Tablet,Chewable
81 mg PO DAILY
metoprolol succinate [Toprol XL] 25 mg Tablet Extended Release 24 Hr
25 mg PO BID
risperidone [Risperdal] 0.5 mg Tablet
0.5 mg PO HS
calcium carbonate-vitamin D3 [Calcium 600 + D(3)] 600 mg-10 mcg (400 unit) Tablet
1 tab PO BID
atorvastatin 40 mg tablet
40 mg PO QPM
nystatin 100,000 unit/gram Powder
1 applic TOPICAL BID
Rx Instructions:
apply under breast
lisinopril 2.5 mg tablet
2.5 mg PO DAILY
cholecalciferol (vitamin D3) 125 mcg (5,000 unit) capsule
125 mcg PO DAILY
amlodipine [Norvasc] 2.5 mg tablet
2.5 mg PO QPM
Discharge Orders:
Discharge Patient (As Directed); Ordered 01/24/25
Ordered By: Zaire Simons
Discharge Date and Time
Discharge Date/Time: 01/24/25 15:06
Print Language: MALDIVIAN
[2025-01-24] MEDS: TYLENOL 650 MG PO (13:35)
[2025-01-24 14:10] VITALS: BP 145/52
== END 2025-01-24 15:06 | DRG 481 ==
LOC: 2 SOUTH 14:42
PROVIDERS: Clinical Nurse Specialist Family Health; Physician Assistant; ADMITTING PHYSICIAN Hospitalist; ATTENDING PHYSICIAN Internal Medicine; CONSULT PHYSICIAN Orthopaedic Surgery; EMERGENCY PHYSICIAN Emergency Medicine
PROC: 0QS606Z Reposition Right Upper Femur with Intramedullary Internal Fixation Device, Open Approach (ICD-10-PCS; 2025-01-22)
DX: M80.051A Age-related osteoporosis with current pathological fracture, right femur, initial encounter for fracture (principal); D62 Acute posthemorrhagic anemia; F03.93 Unspecified dementia, unspecified severity, with mood disturbance; F03.94 Unspecified dementia, unspecified severity, with anxiety; W19.XXXA Unspecified fall, initial encounter; S72.141A Displaced intertrochanteric fracture of right femur, initial encounter for closed fracture; F32.A Depression, unspecified; I10 Essential (primary) hypertension; K21.9 Gastro-esophageal reflux disease without esophagitis; E78.00 Pure hypercholesterolemia, unspecified; Z86.73 Personal history of transient ischemic attack (TIA), and cerebral infarction without residual deficits; M35.00 Sjogren syndrome, unspecified; D64.9 Anemia, unspecified; Z79.82 Long term (current) use of aspirin; Z79.899 Other long term (current) drug therapy; Z79.02 Long term (current) use of antithrombotics/antiplatelets; Z79.4 Long term (current) use of insulin; Z66 Do not resuscitate; E11.9 Type 2 diabetes mellitus without complications
CPT/HCPCS: 70450; 72125; 73502; 73564; 76000; 80053; 82550; 84484; 85014; 85018; 85025; 87070; 93005; 97163; 97167; 99285; C1713

== ENCOUNTER 2025-01-30 14:28 | Emergency (ER) | payer MEDICARE, SELFPAY ==
[2025-01-30] VITALS (14 sets, daily range): BP systolic 100–159; BP diastolic 45–70
[2025-01-30 15:01] LABS: Hematocrit 22.0 % (37.0-47.0); Hemoglobin 7.4 g/dL (12.0-16.0); Mean Corp Hgb Conc. 33.6 g/dL (33.0-37.0); Mean Corpuscular Volume 96.5 fL (81.0-99.0); Nucleated Red Blood Cells % 0 %; Platelet Count 341 10^3/uL (130-400); Red Cell Dist. Width 14.3 % (11.5-14.5)
[2025-01-30 15:15] LABS: ALT (SGPT) 58 U/L (0-35); AST (SGOT) 76 U/L (14-36); Albumin 3.2 g/dl (3.5-5.0); Alkaline Phosphatase 136 U/L (38-126); Blood Urea Nitrogen 28 mg/dl (7-17); Calcium 8.6 mg/dl (8.4-10.2); Carbon Dioxide 21 mmol/L (22-30); Chloride 105 mmol/L (98-107); Glucose 160 mg/dl (70-99); Potassium 3.9 mmol/L (3.5-5.1); Sodium 135 mmol/L (135-145); Total Protein 6.9 g/dl (6.3-8.2); eGFR > 60.00
--- NOTE | 2025-01-30 17:03 | ED.GENMED ---
History of Present Illness
General
Chief Complaint: Abnormal Lab Value
Source: records and family
Exam Limitations: dementia
Time Seen by Provider: 01/30/25 16:37
History of Present Illness
History of Present Illness:
84yoF with a history of dementia, prior stroke on aspirin and Plavix, hypertension, hyperlipidemia presenting with her son for evaluation of abnormal outpatient labs. Patient was hospitalized from 01/21-01/24/25 for a R hip fracture and underwent R
gamma nail placement. She was noted to be anemic during her hospitalization and hemoglobin was 7.9 at its [facility]. Anemia was thought to be related to IV fluids and recent surgery. Patient was discharged to a rehab facility. The rehab facility has
been monitoring her blood. Her hemoglobin was 7.9 on 01/25 and repeat blood work was obtained this morning and hemoglobin was 6.8. Patient was sent to the ED for evaluation. Patient's only current complaint is right hip pain. Son denies any
syncopal episodes or falls. [facility] staff has not reported any melena or hematochezia to son.
Phy Exam
General Physical Exam
General Presentation: well appearing and no apparent distress
General Skin: warm and dry
General Habitus: elderly
General Mental: alert
ENT Exam
ENT Exam: normocephalic
Cardiovascular Exam
Cardiovascular Exam: regular rate/rhythm
Pulmonary Exam
Pulmonary Exam: lungs clear, no respiratory distress, no rales, no crackles and no rhonchi
Gastrointestinal Exam
Stool: other (Stool brown, hemoccult positive)
Neurological Exam
Neurological Exam: alert
Musculoskeletal Exam
Musculoskeletal Exam: other (R hip surgical incision with intact silverio. No signs of infection. )
Skin Exam
Skin Exam: warm/dry and pallor
Psychiatric Exam
Psychiatric Exam: normal mood/affect
Course
Orders/Labs/Results
Orders:
Orders
01/30/25 14:46
CMP [Comprehensive Metabolic Panel] Urgent
01/30/25 14:47
Complete Blood Count/With Diff Urgent
01/30/25 17:41
Blood Bank Products [* Blood Bank Products] Urgent
Blood Bank Products: *Packed RBC Leuko(PRBC's)
Quantity: 1
Transfuse Today: Yes
Reason: Anemia
01/30/25 17:46
Tramadol HCl [Ultram] 50 mg PO NOW STA
01/30/25 17:54
Type And Crossmatch [Type+Screen] Urgent
Abnormal Lab Results
01/30/25 01/30/25 01/30/25
14:46 14:47 17:54
RBC 2.28 L 10^6/uL
(4.20-5.40)
Hgb 7.4 L g/dL
(12.0-16.0)
Hct 22.0 L %
(37.0-47.0)
MCH 32.5 H pg
(27.0-31.0)
Abs Immat Gran (auto) 0.1 H 10^3/uL
(0-0.05)
Absolute Neuts (auto) 7.6 H 10^3/uL
(1.4-6.5)
Absolute Monos (auto) 1.0 H 10^3/uL
(0.1-0.6)
Immature Gran % 0.7 H %
(0-0.5)
Lymphocytes % 17.5 L %
(20.5-51.1)
Monocytes % 9.4 H %
(1.7-9.3)
Carbon Dioxide 21 L mmol/L
(22-30)
BUN 28 H mg/dl
(7-17)
Glucose 160 H mg/dl
(70-99)
Total Bilirubin 1.4 H mg/dl
(0.2-1.3)
AST 76 H U/L
(14-36)
ALT 58 H U/L
(0-35)
Alkaline Phosphatase 136 H U/L
(38-126)
Albumin 3.2 L g/dl
(3.5-5.0)
Crossmatch IS Only See Detail
01/30/25 14:47
01/30/25 14:46
Vital Signs
Initial and Last Documented VS:
Initial Vital Signs
Temp Pulse Resp BP Pulse Ox
97.9 F 79 18 117/45 98
01/30/25 14:35 01/30/25 14:35 01/30/25 14:35 01/30/25 14:35 01/30/25 14:35
Last Documented Vital Signs
Temp Pulse Resp BP Pulse Ox
98.1 F 82 23 140/52 94
01/30/25 21:24 01/30/25 21:30 01/30/25 21:30 01/30/25 21:24 01/30/25 21:30
MDM/Problems Addressed
Differential Diagnosis Includes:
84yoF presenting from her rehab facility for a hemoglobin of 6.8 on outpatient labs. Recent R hip surgery last week. Hemoglobin 7.9 at [facility] during recent admission. Vitals stable and patient is well appearing with no complaints other than R hip
pain. Stool is brown on rectal exam but is hemoccult positive. Differential diagnosis includes: blood loss anemia related to recent surgery, GI bleed, iron deficiency anemia
Labs obtained in triage and hemoglobin is 7.4 today. Discussed positive hemoccult testing with son. Given that there is no chacha melena or hematochezia, active GI bleed is unlikely. Patient does have a POLST form that indicates that she is DNR/DNI
and comfort measures only. Son is very clear that patient would not want to pursue colonoscopy or other invasive testing so hospitalization is unlikely to be helpful. After discussion with son, joint decision made to transfuse patient 1 unit PRBCs
while in ED and discharge patient back to her rehab facility. Consent for blood transfusion obtained from son.
*Pulse Oximetry
SaO2: 98
Oxygen Mode of Delivery: Room air
Patient hypoxic: no
*Critical Care Note
Total Time (30-74mins, 75-104mins- exclusive of procedures): Not Applicable
Update Note
Update Note:
Patient received blood transfusion and tolerated well. Vital stable throughout ED stay. Will discharge patient back to her rehab facility with plan for repeat blood work in the next 1 to 2 weeks.
ED Attending Note
-
Portions of this chart may have been created with voice recognition software.� Occasional wrong word or��sound alike� substitutions may have occurred due to the inherent limitations of voice recognition software.
Discharge Plan
Departure
Patient Disposition: Home (Routine Discharge)
Date of Disposition: 01/30/25
Time of Disposition: 21:04
Patient with high blood pressure during this ER visit?: No
Discharge Problem:
Anemia
Instructions: Anemia in adults, possibly from low iron - ED (DC)
Prescriptions:
No Action
acetaminophen [Tylenol] 325 mg Tablet
650 mg PO Q6HPRN PRN (Reason: mild pain)
trazodone 50 mg Tablet
25 mg PO HS
therapeutic multivitamin Tablet
1 tab PO DAILY
clopidogrel [Plavix] 75 mg Tablet
75 mg PO DAILY
paroxetine HCl [Paxil] 20 mg Tablet
20 mg PO DAILY
esomeprazole magnesium [Nexium] 40 mg Capsule,Delayed Release(Dr/Ec)
40 mg PO DAILY
cevimeline 30 mg Capsule
30 mg PO BID
aspirin 81 mg Tablet,Chewable
81 mg PO DAILY
metoprolol succinate [Toprol XL] 25 mg Tablet Extended Release 24 Hr
25 mg PO BID
risperidone [Risperdal] 0.5 mg Tablet
0.5 mg PO HS
calcium carbonate-vitamin D3 [Calcium 600 + D(3)] 600 mg-10 mcg (400 unit) Tablet
1 tab PO BID
atorvastatin 40 mg tablet
40 mg PO QPM
nystatin 100,000 unit/gram Powder
1 applic TOPICAL BID
Rx Instructions:
apply under left breast
lisinopril 2.5 mg tablet
2.5 mg PO DAILY
cholecalciferol (vitamin D3) 125 mcg (5,000 unit) capsule
125 mcg PO DAILY
amlodipine [Norvasc] 2.5 mg tablet
2.5 mg PO QPM
polyethylene glycol 3350 17 gram Powder In Packet
17 g PO DAILYPRN PRN (Reason: constipation) Qty: 0 0RF
tramadol 50 mg Tablet
50 mg PO Q6HPRN PRN (Reason: moderate to severe pain) Qty: 12 0RF
docusate sodium 100 mg Capsule
100 mg PO BID Qty: 0 0RF
magnesium hydroxide [Milk of Magnesia] 400 mg/5 mL Suspension
2,400 mg PO DAILYPRN PRN (Reason: constipation)
bisacodyl [Dulcolax (bisacodyl)] 10 mg Suppository
10 mg NM DAILYPRN PRN (Reason: if no bm aftr mom)
ferrous sulfate 325 mg (65 mg iron) Tablet
325 mg PO DAILY
Fleet Enema 19-7 gram/118 mL Enema
118 ml NM DAILYPRN PRN (Reason: if no bm aftr dulcalax)
menthol-zinc oxide [Calmoseptine] 0.44-20.6 % Ointment
1 applic TOPICAL BID
Referrals:
UNKNOWN,NO INTERVIEW [Family Provider]
Activity Restrictions/Additional Instructions:
Hemoglobin today was 7.4. Willa received a blood transfusion of 1 unit PRBCs.
Repeat blood work should be done in 1 week.
Return to the ER with any new or worsening symptoms.
Interventions
Interventions:
*Risk Screen - Suicide Last Done: 01/30/25 18:00
*General Assessment Last Done: 01/30/25 18:00
*Neglect/Abuse Screening Last Done: 01/30/25 18:00
*ED COVID-19 Vaccine History Last Done: 01/30/25 18:00
*ED Influenza Vaccine History Last Done: 01/30/25 18:00
Discharge Date and Time
Print Language: SWEDISH
[2025-01-30] MEDS: ULTRAM 50 MG PO (18:39)
== END 2025-01-31 03:37 | disposition home or self-care (01) ==
LOC: EMR 14:28
PROVIDERS: Emergency Medicine; EMERGENCY PHYSICIAN Emergency Medicine
DX: D64.9 Anemia, unspecified (principal); F03.90 Unspecified dementia, unspecified severity, without behavioral disturbance, psychotic disturbance, mood disturbance, and anxiety; I10 Essential (primary) hypertension; E78.5 Hyperlipidemia, unspecified; Z79.82 Long term (current) use of aspirin; Z79.02 Long term (current) use of antithrombotics/antiplatelets; Z86.73 Personal history of transient ischemic attack (TIA), and cerebral infarction without residual deficits
CPT/HCPCS: 99285; 36430; 80053; 85025; 86850; 86900; 86901; 86920; P9016

== ENCOUNTER 2025-02-04 15:23 | Emergency (ER) | payer MEDICARE, SELFPAY ==
[2025-02-04 15:28] VITALS: BP 165/54; BMI 23.1
[2025-02-04 16:00] VITALS: BP 165/130
--- NOTE | 2025-02-04 16:03 | ED.GENMED ---
Addendum entered and electronically signed by Kurt Swanson MD 02/05/25 08:57:
Of note patient's son has stated she has not been ambulatory since the fracture. She needs significant assistance with transitioning weightbearing. X-rays are negative. Reasonable for outpatient observation.
Original Note:
History of Present Illness
<Harrison Jack MD, Resident - Last Filed: 02/04/25 21:41>
General
Chief Complaint: Fall
Source: patient
Exam Limitations: none
Time Seen by Provider: 02/04/25 15:25
History of Present Illness
History of Present Illness:
84-year-old female who presents with moderate constant nonradiating right hip/thigh pain after sliding off her chair and falling on her right side today. Son is present at bedside. She had fracture of her right femur and was admitted to [facility] on 01/21/2025 for fixation with gamma nail, afterwards discharged to rehab for 2 weeks which she completed . She did not lose consciousness, was unable to bear weight on the affected side (normally is ambulatory using a walker), and is on
Plavix. No fever, numbness, chest pain, dizziness, nausea/vomiting, abdominal pain.
Past History
<Harrison Jack MD, Resident - Last Filed: 02/04/25 21:41>
Past History
ED Past Medical History: Other (anemia, fracture of right femur, dehydration)
ED Past Surgical History: Other (Acute traumatic right intertrochanteric hip fracture -due to fall and underlying osteoporosis. s/p right cephalomedullary nail fixation right peritrochanteric femur fracture )
Social History
Tobacco: Non-smoker
Alcohol: None
Drug: None
Personal: Single
Living: assisted living
Employment: Retired
Review of Systems
<Harrison Jack MD, Resident - Last Filed: 02/04/25 21:41>
Review of Systems
Allergies reviewed?: No
All Other Systems: ROS reviewed and negative except as documented in HPI and ROS
Phy Exam
<Harrison Jack MD, Resident - Last Filed: 02/04/25 21:41>
General Physical Exam
General Presentation: well appearing and mild distress
General Skin: warm and dry
General Habitus: elderly
General Mental: alert
Cardiovascular Exam
Cardiovascular Exam: regular rate/rhythm
Pulmonary Exam
Pulmonary Exam: lungs clear and no respiratory distress
Gastrointestinal Exam
Gastrointestinal Exam: normal bowel sounds, non tender, soft and non distended
Neurological Exam
Neurological Exam: alert, oriented x3, CN II-XII intact, normal reflexs, no sensory deficits and speech normal
Musculoskeletal Exam
Musculoskeletal Exam: other (no bruising, swelling, erythema, visible deformity of right lower extremity. Strength 0/5 rt lower extremity and 5/5 on lt lower extremity. Distal pulses/capillary refill normal. Sensation intact b/l. tender right thigh
palpation. )
Course
<Harrison Jack MD, Resident - Last Filed: 02/04/25 21:41>
Orders/Labs/Results
Orders:
Orders
02/04/25 15:50
CR Femur - Right Min 2 Vw Urgent
Comment:
Reason For Exam: fall
CR Pelvis - 1 Or 2 Views Urgent
Comment:
Reason For Exam: fall
02/04/25 15:54
Type And Crossmatch [Type+Screen] Urgent
CBC/With Diff [Complete Blood Count/With Diff] Urgent
CMP [Comprehensive Metabolic Panel] Urgent
PTT Urgent
Prothrombin Time Urgent
02/04/25 22:00
Trazodone [Desyrel] 25 mg PO HS
Abnormal Lab Results
02/04/25
15:54
WBC 10.9 H 10^3/uL
(4.8-10.8)
RBC 2.89 L 10^6/uL
(4.20-5.40)
Hgb 8.8 L g/dL
(12.0-16.0)
Hct 26.7 L %
(37.0-47.0)
RDW 16.9 H %
(11.5-14.5)
Abs Immat Gran (auto) 0.1 H 10^3/uL
(0-0.05)
Absolute Neuts (auto) 8.1 H 10^3/uL
(1.4-6.5)
Absolute Monos (auto) 1.0 H 10^3/uL
(0.1-0.6)
Immature Gran % 0.6 H %
(0-0.5)
Lymphocytes % 15.4 L %
(20.5-51.1)
PT 19.9 H Sec
(11.4-14.6)
BUN 19 H mg/dl
(7-17)
Glucose 108 H mg/dl
(70-99)
AST 55 H U/L
(14-36)
ALT 43 H U/L
(0-35)
Alkaline Phosphatase 152 H U/L
(38-126)
Albumin 3.2 L g/dl
(3.5-5.0)
02/04/25 15:54
02/04/25 15:54
Vital Signs
Initial and Last Documented VS:
Initial Vital Signs
Temp Pulse Resp Pulse Ox
98.1 F 75 16 98
02/04/25 15:26 02/04/25 15:26 02/04/25 15:26 02/04/25 15:26
Last Documented Vital Signs
Temp Pulse Resp BP Pulse Ox
98.1 F 75 16 153/72 93
02/04/25 15:26 02/04/25 15:26 02/04/25 15:26 02/04/25 17:00 02/04/25 17:00
<Kurt Swanson MD - Last Filed: 02/04/25 16:31>
Orders/Labs/Results
Orders:
Orders
02/04/25 15:50
CR Femur - Right Min 2 Vw Urgent
Comment:
Reason For Exam: fall
CR Pelvis - 1 Or 2 Views Urgent
Comment:
Reason For Exam: fall
02/04/25 15:54
Type And Crossmatch [Type+Screen] Urgent
CBC/With Diff [Complete Blood Count/With Diff] Urgent
CMP [Comprehensive Metabolic Panel] Urgent
PTT Urgent
Prothrombin Time Urgent
02/04/25 22:00
Trazodone [Desyrel] 25 mg PO HS
Abnormal Lab Results
02/04/25
15:54
WBC 10.9 H 10^3/uL
(4.8-10.8)
RBC 2.89 L 10^6/uL
(4.20-5.40)
Hgb 8.8 L g/dL
(12.0-16.0)
Hct 26.7 L %
(37.0-47.0)
RDW 16.9 H %
(11.5-14.5)
Abs Immat Gran (auto) 0.1 H 10^3/uL
(0-0.05)
Absolute Neuts (auto) 8.1 H 10^3/uL
(1.4-6.5)
Absolute Monos (auto) 1.0 H 10^3/uL
(0.1-0.6)
Immature Gran % 0.6 H %
(0-0.5)
Lymphocytes % 15.4 L %
(20.5-51.1)
PT 19.9 H Sec
(11.4-14.6)
BUN 19 H mg/dl
(7-17)
Glucose 108 H mg/dl
(70-99)
AST 55 H U/L
(14-36)
ALT 43 H U/L
(0-35)
Alkaline Phosphatase 152 H U/L
(38-126)
Albumin 3.2 L g/dl
(3.5-5.0)
02/04/25 15:54
02/04/25 15:54
Vital Signs
Initial and Last Documented VS:
Initial Vital Signs
Temp Pulse Resp Pulse Ox
98.1 F 75 16 98
02/04/25 15:26 02/04/25 15:26 02/04/25 15:26 02/04/25 15:26
Last Documented Vital Signs
Temp Pulse Resp BP Pulse Ox
98.1 F 75 16 153/72 93
02/04/25 15:26 02/04/25 15:26 02/04/25 15:26 02/04/25 17:00 02/04/25 17:00
<Harrison Jack MD, Resident - Last Filed: 02/04/25 21:41>
MDM/Problems Addressed
Differential Diagnosis Includes:
right hip fracture, right hip dislocation, pelvic fracture, femoral neck fracture, muscle strain, muscle contusion
MDM/Problems Addressed:
84 y/o F with fall on right lower extremity, on Plavix. Recent surgery on 01/21/2025 for intertrochanteric hip fracture on the right side. Decreased active range of motion of right lower extremity, pain on actively raising right lower extremity,
tenderness to palpation of the right thigh area, no visible deformity on examination.
- CBC shows hgb of 8.8
- CMP is unremarkable
- Coags show PT elevation at 9.9
- Xray of right femur negative for fracture
- Xray of pelvis negative for fracture
- Type and crossmatch ordered
- Patient will be discharged to rehab facility with proper f/u instructions.
<Harrison Jack MD, Resident - Last Filed: 02/04/25 21:41>
*Pulse Oximetry
SaO2: 98
Oxygen Mode of Delivery: Room air
Patient hypoxic: no
*Critical Care Note
Total Time (30-74mins, 75-104mins- exclusive of procedures): Not Applicable
ED Attending Note
<Harrison Jack MD, Resident - Last Filed: 02/04/25 21:41>
-
Portions of this chart may have been created with voice recognition software.� Occasional wrong word or��sound alike� substitutions may have occurred due to the inherent limitations of voice recognition software.
<Kurt Swanson MD - Last Filed: 02/04/25 16:31>
ED Attending Note
Patient seen and examined by attending physician: Yes
I performed a history and physical exam of patient and discussed management with resident, I reviewed resident's note and agree with documented findings and plan of care.: Yes
ED Attending Note:
Patient slipped out of her chair at rehabilitation. Landed on her right hip. Complaining of pain. Unable to ambulate. Had been in rehab and bearing full weight. No other injury or complaint
On exam patient is nontoxic in no distress. Normocephalic atraumatic. Neck nontender. No chest wall tenderness. No respiratory distress. Abdomen is nontender. Regular rate and rhythm. Warm and dry. Perfusing well. Well-healing incisions to
the right lateral hip. Tenderness over the greater trochanter. No severe shortening. No rotation. Tenderness over the greater trochanter distally to mid femur. Pelvis is stable.
Previous records and labs reviewed. Previous x-rays reviewed. Labs are stable. Ongoing anemia that is stable. X-rays pending. Concern for postoperative fracture. Workup in progress
Discharge Plan
Departure
Patient Disposition: Acute Rehab Facility
Date of Disposition: 02/04/25
Time of Disposition: 17:57
Patient with high blood pressure during this ER visit?: Yes
Condition: Fair
Discharge Problem:
Fall
Instructions: Preventing falls - ED (DC), BLOOD PRESSURE
Prescriptions:
No Action
acetaminophen [Tylenol] 325 mg Tablet
650 mg PO Q6HPRN PRN (Reason: mild pain/fever)
trazodone 50 mg Tablet
25 mg PO HS
therapeutic multivitamin Tablet
1 tab PO DAILY
clopidogrel [Plavix] 75 mg Tablet
75 mg PO DAILY
paroxetine HCl [Paxil] 20 mg Tablet
20 mg PO DAILY
esomeprazole magnesium [Nexium] 40 mg Capsule,Delayed Release(Dr/Ec)
40 mg PO DAILY
cevimeline 30 mg Capsule
30 mg PO BID
aspirin 81 mg Tablet,Chewable
81 mg PO DAILY
metoprolol succinate [Toprol XL] 25 mg Tablet Extended Release 24 Hr
25 mg PO BID
risperidone [Risperdal] 0.5 mg Tablet
0.5 mg PO HS
calcium carbonate-vitamin D3 [Calcium 600 + D(3)] 600 mg-10 mcg (400 unit) Tablet
1 tab PO BID
atorvastatin 40 mg tablet
40 mg PO QPM
nystatin 100,000 unit/gram Powder
1 applic TOPICAL BID
Rx Instructions:
apply under left breast x 14 days, beginning 01/25/25, ending 02/08/25
lisinopril 2.5 mg tablet
2.5 mg PO DAILY
cholecalciferol (vitamin D3) 125 mcg (5,000 unit) capsule
125 mcg PO DAILY
amlodipine [Norvasc] 2.5 mg tablet
2.5 mg PO QPM
polyethylene glycol 3350 17 gram Powder In Packet
17 g PO DAILYPRN PRN (Reason: constipation) Qty: 0 0RF
tramadol 50 mg Tablet
50 mg PO Q6HPRN PRN (Reason: moderate to severe pain) Qty: 12 0RF
docusate sodium 100 mg Capsule
100 mg PO BID Qty: 0 0RF
magnesium hydroxide [Milk of Magnesia] 400 mg/5 mL Suspension
2,400 mg PO DAILYPRN PRN (Reason: constipation)
bisacodyl [Dulcolax (bisacodyl)] 10 mg Suppository
[address] DAILYPRN PRN (Reason: if no bm aftr mom)
ferrous sulfate 325 mg (65 mg iron) Tablet
325 mg PO DAILY
Fleet Enema 19-7 gram/118 mL Enema
[address] DAILYPRN PRN (Reason: if no bm aftr dulcalax)
menthol-zinc oxide [Calmoseptine] 0.44-20.6 % Ointment
1 applic TOPICAL BID
Referrals:
Elena Aguayo MD [Family Provider, Internal Medicine]
Activity Restrictions/Additional Instructions:
You were seen for fall on your right lower extremity. Please return to the ER if there is any chest pain, dizziness, Nausea/ vomiting, recurrent fall, numbness/ wekaness, or pain/discharge at site on surgical incision. Continue to take current pain
medication as needed. Make sure to f/u with PCP and orthopedics doctor in less than 1 week.
Thank you for visiting the Emergency Department at [facility] [place].
1. Please schedule a follow up appointment as directed. Call first thing tomorrow morning to make an appointment.
2. If indicated, please take your medications as instructed and indicated on discharge paperwork.
3. If any of your symptoms do not improve, or persist, or become more severe within 6-12 hours, please return to the emergency department for further care.
4. Please return to the emergency department if you develop a headache, neck pain/stiffness, fever greater than 100.4F, chest pain, shortness of breath, persistent nausea, vomiting, slurred speech, difficulty walking, numbness/tingling, weakness,
signs of infection or any other symptoms that are worrisome to you.
Please call [phone] if you have any questions.
Interventions
Interventions:
*Risk Screen - Suicide Last Done: 02/04/25 15:31
*General Assessment Last Done: 02/04/25 15:36
*Neglect/Abuse Screening Last Done: 02/04/25 15:31
*ED COVID-19 Vaccine History Last Done: 02/04/25 15:37
*ED Influenza Vaccine History Last Done: 02/04/25 15:37
ED-Musculoskeletal Assessment Last Done: 02/04/25 15:31
ED- Neurological Assessment Last Done: 02/04/25 15:32
ED-Skin Assessment Last Done: 02/04/25 15:32
Discharge Date and Time
Print Language: AUSTRALIAN
[2025-02-04 16:11] LABS: Hematocrit 26.7 % (37.0-47.0); Hemoglobin 8.8 g/dL (12.0-16.0); Mean Corp Hgb Conc. 33.0 g/dL (33.0-37.0); Mean Corpuscular Volume 92.4 fL (81.0-99.0); Nucleated Red Blood Cells % 0 %; Platelet Count 359 10^3/uL (130-400); Red Cell Dist. Width 16.9 % (11.5-14.5)
[2025-02-04 16:19] LABS: INR 1.67; PT 19.9 Sec (11.4-14.6)
[2025-02-04 16:20] LABS: APTT 35.0 Sec (23.4-35.0)
[2025-02-04 16:24] LABS: ALT (SGPT) 43 U/L (0-35); AST (SGOT) 55 U/L (14-36); Albumin 3.2 g/dl (3.5-5.0); Alkaline Phosphatase 152 U/L (38-126); Blood Urea Nitrogen 19 mg/dl (7-17); Calcium 9.0 mg/dl (8.4-10.2); Carbon Dioxide 22 mmol/L (22-30); Chloride 107 mmol/L (98-107); Estimated Creatinine Clearance 59 ml/min; Glucose 108 mg/dl (70-99); Potassium 4.4 mmol/L (3.5-5.1); Sodium 135 mmol/L (135-145); Total Protein 7.0 g/dl (6.3-8.2); eGFR > 60.00
[2025-02-04 17:00] VITALS: BP 153/72
[2025-02-04] MEDS: DESYREL 25 MG PO (19:27)
== END 2025-02-04 22:34 ==
LOC: EMR 15:23
PROVIDERS: EMERGENCY PHYSICIAN Emergency Medicine; FAMILY PHYSICIAN Internal Medicine
DX: M25.551 Pain in right hip (principal); M79.651 Pain in right thigh; W07.XXXA Fall from chair, initial encounter; D64.9 Anemia, unspecified; Z79.02 Long term (current) use of antithrombotics/antiplatelets; Z87.81 Personal history of (healed) traumatic fracture; Z98.890 Other specified postprocedural states
CPT/HCPCS: 99284; 72170; 73552; 80053; 85025; 85610; 85730; 86850; 86900; 86901

== ENCOUNTER 2025-03-19 13:07 | Inpatient (IN) | payer MEDICARE, SELFPAY ==
[2025-03-19] VITALS (7 sets, daily range): BP systolic 139–164; BP diastolic 59–81; BMI 20.9
--- NOTE | 2025-03-19 12:28 | ED.GENMED ---
History of Present Illness
General
Chief Complaint: Musculo-Skeletal Complaint
Source: patient
Exam Limitations: none
Time Seen by Provider: 03/19/25 12:05
Nursing documentation reviewed up to this point in time: agreed with
History of Present Illness
History of Present Illness:
84-year-old female with history as noted presents to the emergency room from [facility] that she was sent in after being found to have a periprosthetic femoral fracture. She was admitted 6 weeks ago and had hip fracture repaired with
Ben. It sounds like she was in rehab after this and then was transferred to [facility] about a month ago for long-term care. According to the staff at [facility] she did not have any falls at their facility but there was a report
of a minor fall prior to transfer from rehab. She had been doing PT but was having progressive pain with PT and eventually unable to bear weight on her right leg which prompted an x-ray done this week which showed periprosthetic fracture. After
discussion with the orthopedist she was referred to the hospital with plan for our repair on Thursday. Aside from pain in her right hip she denies any other acute issues.
Past History
Past History
ED Past Medical History: Other (anemia, fracture of right femur, dehydration)
ED Past Surgical History: Other (Acute traumatic right intertrochanteric hip fracture -due to fall and underlying osteoporosis. s/p right cephalomedullary nail fixation right peritrochanteric femur fracture )
Social History
Tobacco: Non-smoker
Alcohol: None
Drug: None
Personal: Single
Living: assisted living
Employment: Retired
Review of Systems
Review of Systems
All Other Systems: ROS reviewed and negative except as documented in HPI and ROS
Cardiac: Denies chest pain
ABD/GI: Denies abdominal pain
Musculoskeletal: Reports joint pain; Denies neck pain or back pain
Neurological: Denies headache
Phy Exam
Physical Exam
Physical Exam:
General: Well appearing and non-toxic
HEENT: protecting airway, head atraumatic
Neck: appears supple, no tenderness of the cervical spine
CV: No evidence of cyanosis
Resp: No accessory muscle use
Abd: Non-distended
Extremities: Patient has pain on flexion and internal/external rotation of the right hip, no pain on range of motion of the left hip; she has a strong right femoral, popliteal, DP pulse and no notable edema in the right lower extremity
Neuro: Alert
Psych: Normal affect
Skin: Intact
Scores
Heart Failure Risk
Heart Failure Risk Score: Not Applicable
Heart Score for Chest Pain Patients
STEMI patient?: Not applicable
Withdrawal Assessment of Alcohol
Withdrawal Assessment Completed?: Not applicable
Course
Orders/Labs/Results
Orders:
Orders
03/19/25 12:10
CR Femur - Right Min 2 Vw Urgent
Comment:
Reason For Exam: right hip fx (periprosthetic)
CR Hip - RT w/wo Pel 2-3 Vw* Urgent
Comment:
Reason For Exam: right hip fx (periprosthetic)
Include a pelvis x-ray?: No
03/19/25 12:11
ORTHOPEDIC CONSULT Urgent
Consulting Provider: Dwain Contreras
Was physician already notified: Yes
03/19/25 12:15
Type+Screen Urgent
Complete Blood Count/With Diff Urgent
Comprehensive Metabolic Panel Urgent
PTT Urgent
Prothrombin Time Urgent
03/19/25 12:27
Electrocardiogram (*1) Urgent
Reason for Study: PreOp
EKG- Treatment ONCE
03/19/25 12:49
Admit/Transfer Patient As Directed
Co-Sign Provider:
Level of Care: Inpatient admission
Assign to:: Medical/Surgical
Physician / Group: tracey
Diagnosis: ORIF dysfunction
Reason for Hospitalization: ORIF dysfunction
Expected length of stay greater than two midnights?: Yes
ELOS- Estimated Length of Stay in days: 2
I certify the patient meets the requirements for IP care: Yes
03/19/25 12:50
Code Status As Directed
Resuscitation Status: Do not resuscitate
Reached after discussion with pt or family/Healthcare POA: Yes
DNR Bracelet Application ONCE
PRN Pain Medication Management As Directed
May give lesser potent ordered pain med per pt: Yes
preference::
Protocol:: Medication orders for pain may be administered in a
manner that supports deferring to patient preference
when the pt is:
- Requesting an ordered lesser potent pain medication.
Least to most potent pain medications are defined
as: acetaminophen < NSAID < tramadol < opioids
(morphine, oxycodone, hydromorphone).
- Requesting a lesser dose of the same medication IF
ORDERED.
- Requesting a less intrusive route of administration
if both routes are prescribed by the provider (PO <
IV).
Abnormal Lab Results
03/19/25
12:15
RBC 3.08 L 10^6/uL
(4.20-5.40)
Hgb 9.8 L g/dL
(12.0-16.0)
Hct 29.4 L %
(37.0-47.0)
MCH 31.8 H pg
(27.0-31.0)
RDW 15.1 H %
(11.5-14.5)
Absolute Neuts (auto) 6.9 H 10^3/uL
(1.4-6.5)
Absolute Monos (auto) 1.0 H 10^3/uL
(0.1-0.6)
Lymphocytes % 17.8 L %
(20.5-51.1)
Monocytes % 10.1 H %
(1.7-9.3)
APTT 36.5 H Sec
(23.4-35.0)
Sodium 134 L mmol/L
(135-145)
Glucose 131 H mg/dl
(70-99)
AST 37 H U/L
(14-36)
Alkaline Phosphatase 137 H U/L
(38-126)
Albumin 3.3 L g/dl
(3.5-5.0)
03/19/25 12:15
03/19/25 12:15
Vital Signs
Initial and Last Documented VS:
Initial Vital Signs
Temp Pulse Resp BP Pulse Ox
37.1 C 77 17 151/61 95
03/19/25 12:01 03/19/25 12:01 03/19/25 12:01 03/19/25 12:01 03/19/25 12:01
Last Documented Vital Signs
Temp Pulse Resp BP Pulse Ox
37.1 C 76 19 139/59 98
03/19/25 12:01 03/19/25 14:45 03/19/25 14:45 03/19/25 14:22 03/19/25 14:45
MDM/Problems Addressed
Differential Diagnosis Includes:
Fracture
MDM/Problems Addressed:
84-year-old female sent to the ER with periprosthetic fracture. Discussed with orthopedics plan for our repair. Will send preop labs. Imaging for operative planning. Discussed case with hospitalist.
*Radiology
Radiology exam reviewed: preliminary read by ED provider and radiology read reviewed
*Pulse Oximetry
SaO2: 98
Oxygen Mode of Delivery: Room air
Patient hypoxic: no (98%)
*EKG
Interpreted by ED Provider?: Yes
Heart Rate: 77
Rate: normal
Rhythm: sinus
[place]: left axis deviation
QRS Pattern: right bundle branch block
Ischemia: non-specific ST changes
*Critical Care Note
Total Time (30-74mins, 75-104mins- exclusive of procedures): Not Applicable
Data Reviewed
Review of Other/Old Records Reveals: Labs and Records
Source: patient, family (Patient's son who is at bedside) and physician (Orthopedic physician)
Patient Management
Discussion with other providers: Hospitalist (Discussed with hospitalist), Loss Prevention Supervisor (Discussed with orthopedic physician) and assisted staff (Discussed with [facility] staff directly)
Escalation/DeEscalation of care consider admission/obs:
Admission indicated
ED Attending Note
-
Portions of this chart may have been created with voice recognition software.� Occasional wrong word or��sound alike� substitutions may have occurred due to the inherent limitations of voice recognition software.
Discharge Plan
Departure
Patient Disposition: Admit
Date of Disposition: 03/19/25
Time of Disposition: 12:27
Admit to doctor: Tracey
Presentation/result/management discussed w/ accepting MD/DO: Hospitalist
Discharge Problem:
Femur fracture, right
Interventions
Interventions:
*Risk Screen - Suicide Last Done: 03/19/25 12:06
*General Assessment Last Done: 03/19/25 12:06
*Neglect/Abuse Screening Last Done: 03/19/25 12:06
*ED COVID-19 Vaccine History Last Done: 03/19/25 12:06
*ED Influenza Vaccine History Last Done: 03/19/25 12:06
ED-Musculoskeletal Assessment Last Done: 03/19/25 12:07
[2025-03-19 12:29] LABS: Hematocrit 29.4 % (37.0-47.0); Hemoglobin 9.8 g/dL (12.0-16.0); Mean Corp Hgb Conc. 33.3 g/dL (33.0-37.0); Mean Corpuscular Volume 95.5 fL (81.0-99.0); Nucleated Red Blood Cells % 0 %; Platelet Count 262 10^3/uL (130-400); Red Cell Dist. Width 15.1 % (11.5-14.5)
[2025-03-19 12:32] LABS: INR 1.09; PT 14.4 Sec (11.4-14.6)
[2025-03-19 12:33] LABS: APTT 36.5 Sec (23.4-35.0)
[2025-03-19 12:36] LABS: ALT (SGPT) 31 U/L (0-35); AST (SGOT) 37 U/L (14-36); Albumin 3.3 g/dl (3.5-5.0); Alkaline Phosphatase 137 U/L (38-126); Blood Urea Nitrogen 17 mg/dl (7-17); Calcium 9.3 mg/dl (8.4-10.2); Carbon Dioxide 27 mmol/L (22-30); Chloride 103 mmol/L (98-107); Glucose 131 mg/dl (70-99); Potassium 4.2 mmol/L (3.5-5.1); Sodium 134 mmol/L (135-145); Total Protein 7.2 g/dl (6.3-8.2); eGFR > 60.00
--- NOTE | 2025-03-19 12:53 | HPS.HSE ---
Family Physician
-
Family Physician: Pedro Luis Loredo,
Chief Complaint
-
right hip pain
History of Present Illness
84-year-old female past medical history of anxiety, depression, dementia, chronic anemia, Sjogren syndrome, GERD, CVA, hyperlipidemia, hypertension, presenting with progressive pain of the right hip.
Patient was recently admitted from 01/21 to 01/24 for fall resulting in right intertrochanteric hip fracture. Patient was taken to the operating room for surgery and underwent insertion of right short cephalomedullary nail.
Since then she has underwent physical therapy with progressive pain and inability to ambulate. X-ray from few days ago showed issue with the hardware requiring revision as per Dr Coates. She may have had a fall last month while doing rehab.
Pain is only with movement. Tylenol has been sufficient for pain rarely requires tramadol but this does make her confused.
She does not smoke or drink alcohol.
Medical History
Past Medical History
Past Medical History: Reports Other (anxiety, depression, dementia, chronic anemia, Sjogren syndrome, GERD, CVA, hyperlipidemia, hypertension,)
Past Surgical History: Reports Other ((Acute traumatic right intertrochanteric hip fracture -due to fall and underlying osteoporosis. s/p right cephalomedullary nail fixation right peritrochanteric femur fracture ))
Social History
Tobacco: Non-smoker
Alcohol: None
Drug: None
Family History
Family History: Not pertinent
Allergies / Home Medications
Allergies reflects when Allergies were last updated in [facility].
Home Medications with original date entered in [facility]
Allergy/Medication List:
Allergies
Allergy/AdvReac Type Severity Reaction Status Date / Time
No Known Allergies Allergy Unverified 03/19/25 12:08
Home Medications
acetaminophen 325 mg tablet (Tylenol) 650 mg PO Q6HPRN PRN mild pain/fever 06/30/23
aspirin 81 mg chewable tablet 81 mg PO DAILY Blood Clot Prevention/Tx 06/30/23
calcium 600 mg (as carbonate)-vitamin D3 10 mcg (400 unit) tablet (Calcium 600 + D(3)) 1 tab PO BID Supplement 06/30/23
cevimeline 30 mg capsule 30 mg PO BID Sjogren's syndrome 06/30/23
clopidogrel 75 mg tablet (Plavix) 75 mg PO DAILY Blood Clot Prevention/Tx 06/30/23
esomeprazole magnesium 40 mg capsule,delayed release (Nexium) 40 mg PO DAILY Gastrointestinal Issue 06/30/23
metoprolol succinate 25 mg tablet,extended release 24 hr (Toprol XL) 25 mg PO BID Blood Pressure 06/30/23
paroxetine HCl 20 mg tablet (Paxil) 20 mg PO DAILY Depression 06/30/23
risperidone 0.5 mg tablet (Risperdal) 0.5 mg PO HS Mental Health/Anxiety 06/30/23
therapeutic multivitamin 1 tab PO DAILY Supplement 06/30/23
trazodone 50 mg tablet 25 mg PO HS Sleep 06/30/23
amlodipine 2.5 mg tablet (Norvasc) 2.5 mg PO QPM Blood Pressure 01/21/25
atorvastatin 40 mg tablet 40 mg PO QPM High Cholesterol 01/21/25
cholecalciferol (vitamin D3) 125 mcg (5,000 unit) capsule 125 mcg PO DAILY Supplement 01/21/25
lisinopril 2.5 mg tablet 2.5 mg PO DAILY Blood Pressure 01/21/25
nystatin 100,000 unit/gram topical powder 1 applic topical BID Infection 01/21/25
docusate sodium 100 mg capsule 100 mg PO BID #0 caps 01/24/25
polyethylene glycol 3350 17 gram oral powder packet 17 g PO DAILYPRN PRN constipation #0 ea 01/24/25
tramadol 50 mg tablet 50 mg PO Q6HPRN PRN moderate to severe pain #12 tabs 01/24/25
bisacodyl 10 mg rectal suppository (Dulcolax (bisacodyl)) 10 mg HI DAILYPRN PRN if no bm aftr mom 01/30/25
ferrous sulfate 325 mg (65 mg iron) tablet 325 mg PO DAILY 01/30/25
magnesium hydroxide 400 mg/5 mL oral suspension (Milk of Magnesia) 2,400 mg PO DAILYPRN PRN constipation 01/30/25
menthol 0.44 %-zinc oxide 20.6 % topical ointment (Calmoseptine) 1 applic topical BID b/l buttock & perianal 01/30/25
sodium phosphates 19 gram-7 gram/118 mL enema (Fleet Enema) 118 ml HI DAILYPRN PRN if no bm aftr dulcalax 01/30/25
Review of Systems
-
History Source: Patient
A 12 point ROS was completed and negative except as noted: Yes
Constitutional: Reports No Symptoms
EENT: Reports No Symptoms
Respiratory: Reports No Symptoms
Cardiac: Reports No Symptoms
Abdomen/GI: Reports No Symptoms
: Reports No Symptoms
Musculoskeletal: Reports See HPI
Skin: Reports No Symptoms
Neurological: Reports No Symptoms
Endocrine: Reports No Symptoms
Hematologic/Lymphatic: Reports No Symptoms
Psych: Reports No Symptoms
Physical Exam
Vital Signs
Vital Signs
Temp Pulse Resp BP Pulse Ox
98.7 F 77 17 151/61 98
03/19/25 12:01 03/19/25 12:01 03/19/25 12:01 03/19/25 12:02 03/19/25 12:28
Physical Exam
General: Well Developed, Well Nourished and No Apparent Distress
HEENT: NormoCephalic, Moist mucous membranes and Atraumatic
Respiratory: Clear
Cardiac: S1/S2 and Regular Rhythm; No Murmur or Rub
GI: Soft, Non Tender, Non Distended and Normal Bowel Sounds; No Organomegaly
Rectal: Deferred by Provider
Musculoskeletal: No Clubbing, No Cyanosis and No Edema
Skin: No Rash
Neuro: Nonfocal/grossly intact
Laboratory Results
-
03/19/25 12:15
03/19/25 12:15
Laboratory Results
PT 14.4 Sec (11.4-14.6) 03/19/25 12:15
INR 1.09 03/19/25 12:15
APTT 36.5 Sec (23.4-35.0) H 03/19/25 12:15
Total Bilirubin 0.4 mg/dl (0.2-1.3) 03/19/25 12:15
AST 37 U/L (14-36) H 03/19/25 12:15
ALT 31 U/L (0-35) 03/19/25 12:15
Alkaline Phosphatase 137 U/L (38-126) H 03/19/25 12:15
Data Reviewed
-
Lab Data: Labs Reviewed by me
Old Records: Reviewed
Impression/Plan
-
IMPRESSION:
PLAN:
# Hardware dysfunction after recent gamma nail placement
# Recent right intertrochanteric proximal femur fracture status post recent ORIF with gamma nail placement
-Femur and hip x-ray pending
-As per Ortho there was issue with hardware requiring revision and there is plan for operating room either tomorrow or Thursday
-Tylenol, tramadol for pain as needed
-N.p.o. postmidnight
- Hold Plavix
Chronic anemia
-Hemoglobin stable 9.8
Anxiety/depression
- Continue paroxetine, Risperdal
Sjogren syndrome
GERD
- Continue esomeprazole
History of CVA
- Continue aspirin, statin
- Hold Plavix
Hyperlipidemia
Essential hypertension
- Continue amlodipine
- Continue lisinopril
- Continue metoprolol
Dementia
Insomnia
- Continue trazodone
DNR/DNI
DVT prophylaxis�SCDs
N.p.o. past midnight
--- NOTE | 2025-03-19 13:50 | EDCM ---
Reviewed chart and met with pt and son bedside in ED. Pt resides at [facility] in LTC Dementia Unit, moved there after last hospital admission.
Per son she has been participating in therapy but not able to do anything independently at this time. Has not been able to participate in therapy over past 4 days due to increased pain in her hip.
Prior to hip fracture was able to ambulate independently with RW.
PCP: Pedro Luis Loredo
Meds supplied by [facility].
Anticipate return to [facility], CM will continue to follow.
[2025-03-19] MEDS: TYLENOL 650 MG PO (17:32)
--- NOTE | 2025-03-19 18:02 | PTCARENOTE ---
Called [facility] to get times of medications, there was no med list provided. notified Dr. Webb.
--- NOTE | 2025-03-19 20:25 | W.PN.UPDATE ---
Update Note
Progress Note Update
Patient seen and examined. Chart reviewed. Spoke to patient's son via telephone regarding diagnosis and treatment plan.
84-year-old female status post right cephalomedullary nail fixation intertrochanteric femur fracture with screw cut out. Tentatively planning for OR tomorrow for removal of implant conversion to arthroplasty. Will make definitive decision in a.m.
after discussing with OR regarding timing. Please keep patient n.p.o. at midnight in preparation for potential OR tomorrow.
Nonweightbearing right lower extremity
N.p.o. at midnight
Please hold anticoagulation preparation for possible OR tomorrow
Medical management per primary team
Pain control
Plan: 2 OR tomorrow pending OR availability and medical clearance
Formal consult note to follow
[2025-03-19] MEDS: DESYREL 25 MG PO (21:41)
[2025-03-19] MEDS: ULTRAM 50 MG PO (22:00)
--- NOTE | 2025-03-20 06:00 | PTCARENOTE ---
Pt charted as a fall here in the hospital on 03/19 20:30, the fall was POA not here in the hospital.
[2025-03-20 06:58] LABS: Hematocrit 30.5 % (37.0-47.0); Hemoglobin 9.9 g/dL (12.0-16.0); Mean Corp Hgb Conc. 32.5 g/dL (33.0-37.0); Mean Corpuscular Volume 97.1 fL (81.0-99.0); Nucleated Red Blood Cells % 0 %; Platelet Count 260 10^3/uL (130-400); Red Cell Dist. Width 15.1 % (11.5-14.5)
[2025-03-20 07:00] VITALS: BP 155/65
[2025-03-20 07:21] LABS: ALT (SGPT) 28 U/L (0-35); AST (SGOT) 32 U/L (14-36); Albumin 3.2 g/dl (3.5-5.0); Alkaline Phosphatase 137 U/L (38-126); Blood Urea Nitrogen 13 mg/dl (7-17); Calcium 9.1 mg/dl (8.4-10.2); Carbon Dioxide 29 mmol/L (22-30); Chloride 102 mmol/L (98-107); Estimated Creatinine Clearance 51 ml/min; Glucose 95 mg/dl (70-99); Potassium 4.3 mmol/L (3.5-5.1); Sodium 135 mmol/L (135-145); Total Protein 6.9 g/dl (6.3-8.2); eGFR > 60.00
[2025-03-20] MEDS: ZESTRIL 2.5 MG PO (08:56)
[2025-03-20] MEDS: THERAGRAN 1 TABLET PO (08:56)
[2025-03-20] MEDS: COLACE 100 MG PO ×2 (08:56→20:41)
[2025-03-20] MEDS: VITAMIN D3 (cholecalciferol) 125 MCG PO (08:56)
[2025-03-20] MEDS: TOPROL XL 25 MG PO (08:56)
[2025-03-20] MEDS: PROTONIX 40 MG PO (08:56)
[2025-03-20] MEDS: FEOSOL 325 MG PO (08:56)
[2025-03-20] MEDS: PAXIL 20 MG PO (08:57)
[2025-03-20] MEDS: OSCAL 500 + D 500 MG PO ×2 (08:57→20:41)
[2025-03-20] MEDS: TYLENOL 1000 MG PO ×2 (08:57→20:41)
--- NOTE | 2025-03-20 11:27 | W.PN.HOSP.TC ---
Today's Communication/Plan
-
TTE pre-op
hold asa/plavix
npo pmn for Or tomm
pain control
Assessment / Plan
Assessment / Plan
General: Well Developed, Well Nourished and No Apparent Distress
HEENT: NormoCephalic, Moist mucous membranes and Atraumatic
Respiratory: Clear
Cardiac: S1/S2 and Regular Rhythm; No Murmur or Rub
GI: Soft, Non Tender, Non Distended and Normal Bowel Sounds; No Organomegaly
Rectal: Deferred by Provider
Musculoskeletal: No Clubbing, No Cyanosis and No Edema
Skin: No Rash
Neuro: Nonfocal/grossly intact
#Persistent R hip pain with acute R femur fracture
# Recent right intertrochanteric proximal femur fracture status post recent ORIF with gamma nail placement
-Lower extremtiy CT report noted
-Tylenol, tramadol for pain as needed
-N.p.o. postmidnight plan for Arthoplasty in am per ortho
-Hold Plavix/asa per orthopedics
- Patient currently denies any chest pain at rest or exertion prior to arrival to the hospital. Looking to records patient with no cardiac history of stent placement. EKG with incomplete right bundle branch block which was noted previously. Some
ST depression was noted and repeat EKG. Check echocardiogram. Based on the finding will follow with Dr. Carreon. Overall appears medically stable for surgery
Chronic anemia
-Hgb noted. Monitor hgb for now. transfuse for hgb<7.
Anxiety/depression
- Continue paroxetine, Risperdal
Sjogren syndrome
GERD
- Continue esomeprazole
History of CVA
- Continue statin
- Hold Plavix/asa
Hyperlipidemia
Essential hypertension
- Continue amlodipine
- Continue lisinopril
- Continue metoprolol
Dementia without behavioral disturbance
-monitor mentation for now
Insomnia
- Continue trazodone
DNR/DNI
DVT prophylaxis�SCDs pre-op. post op per orthopedic
Anticipated Discharge: > 48 hours
Subjective/Interval History
-
Date of Service: March 20, 2025
states anxious about surgery tomm
Objective Data
-
Labs:
Laboratory Results
03/20/25
06:35
WBC 7.9
Hgb 9.9 L
Hct 30.5 L
Plt Count 260
Sodium 135
Potassium 4.3
Chloride 102
Carbon Dioxide 29
BUN 13
Creatinine 0.7
Glucose 95
Calcium 9.1
Total Bilirubin 0.2
AST 32
ALT 28
Alkaline Phosphatase 137 H
Vital Signs:
Vital Signs
Temp Pulse Resp BP Pulse Ox
97.9 F 73 16 155/65 95
03/20/25 07:00 03/20/25 08:56 03/20/25 07:00 03/20/25 08:56 03/20/25 07:00
I&O
03/19/25 03/20/25 03/21/25
06:59 06:59 06:59
Intake Total 240 / 240
Output Total 200 / 200
Balance 40 / 40
Data Reviewed
-
Total Time Spent with Patient (in minutes): 55
CT Scan: Report Reviewed by me and Other (Subacute intertrochanteric fracture of the proximal right femur transfixed by gamma nails. Acute fracture of the neck of the right femur, as noted above with femoral neck component of the gamma nail
extending through the anterior cortex of the proximal neck of the right femur.)
[2025-03-20] MEDS: ULTRAM 50 MG PO (14:12)
--- NOTE | 2025-03-20 14:15 | CM ---
Tentative plan for OR 03/21/25 for removal of implant-conversion to arthroplasty. Maintain NPO pending OR. JOE RLE. Discharge POC: Is a LTC resident at [facility].
[2025-03-20 15:00] VITALS: BP 140/58
--- NOTE | 2025-03-20 17:31 | CON.ORTHO ---
Consultation
-
Date/Time Consultation Performed: 03/19/815 pm
Consultation - Orthopedics
History
HPI: 84-year-old female history of dementia presented to the emergency department complaints of right hip pain and inability to bear weight. She was subsequently diagnosed with a cut out of her right cephalomedullary nail implants admitted to the
medical service. Orthopedics was consulted for further evaluation and treatment. This evening patient is somewhat confused. She is complaining of pain in her right hip and groin area. She is really unable to provide reliable history. I did
speak with her son on Thursday regarding x-ray findings at her nursing facility and I did recommend admission to the hospital for surgical intervention to include removal of implant likely conversion to cemented right hemiarthroplasty. I did speak
with him again upon her admission to update him regarding her care. Again he was in agreement with proceeding with surgical intervention. I did speak with her senior living facility over the weekend as well. There was some question with nursing
that she might of sustained a fall prior to onset of her inability to bear weight and her worsening pain.
Allergies / Home Medications
Past medical history: Anxiety depression dementia Sjogren syndrome GERD CVA hyperlipidemia hypertension
Past surgical history: Right cephalomedullary nail for right intertrochanteric femur fracture
Social history: Non-smoker, dementia
Family history: Not pertinent
Allergy/AdvReac Type Severity Reaction Status Date / Time
No Known Allergies Allergy Unverified 03/19/25 12:08
�Medication �Instructions �Recorded
acetaminophen 325 mg tablet 650 mg PO Q4HPRN PRN mild 06/30/23
(Tylenol) pain/fever
aspirin 81 mg chewable tablet 81 mg PO DAILY Blood Clot 06/30/23
Prevention/Tx
calcium 600 mg (as 1 tab PO BID Supplement 06/30/23
carbonate)-vitamin D3 10 mcg (400
unit) tablet (Calcium 600 + D(3))
cevimeline 30 mg capsule 30 mg PO BID Sjogren's syndrome 06/30/23
clopidogrel 75 mg tablet (Plavix) 75 mg PO DAILY Blood Clot 06/30/23
Prevention/Tx
metoprolol succinate 25 mg 25 mg PO DAILY Blood Pressure 06/30/23
tablet,extended release 24 hr
(Toprol XL)
paroxetine HCl 20 mg tablet (Paxil) 20 mg PO DAILY Depression 06/30/23
risperidone 0.5 mg tablet 0.5 mg PO QPM Mental Health/Anxiety 06/30/23
(Risperdal)
therapeutic multivitamin 1 tab PO DAILY Supplement 06/30/23
trazodone 50 mg tablet 25 mg PO HS Sleep 06/30/23
atorvastatin 40 mg tablet 40 mg PO QPM High Cholesterol 01/21/25
cholecalciferol (vitamin D3) 125 125 mcg PO DAILY Supplement 01/21/25
mcg (5,000 unit) capsule
lisinopril 2.5 mg tablet 2.5 mg PO DAILY Blood Pressure 01/21/25
docusate sodium 100 mg capsule 100 mg PO BID #0 caps 01/24/25
tramadol 50 mg tablet 50 mg PO Q6HPRN PRN moderate to 01/24/25
severe pain #12 tabs
bisacodyl 10 mg rectal suppository 10 mg DE DAILYPRN PRN when MOM 01/30/25
(Dulcolax (bisacodyl)) ineffective
ferrous sulfate 325 mg (65 mg 325 mg PO DAILY Supplement 01/30/25
iron) tablet
magnesium hydroxide 400 mg/5 mL 2,400 mg PO HSPRN PRN constipation 01/30/25
oral suspension (Milk of Magnesia)
acetaminophen 500 mg tablet 1,000 mg PO BID Pain 03/19/25
omeprazole 20 mg capsule,delayed 40 mg PO DAILY Gastrointestinal 03/19/25
release Issue
Vital Signs / Lab Results
Temp Pulse Resp BP Pulse Ox
99.2 F 77 16 140/58 95
03/20/25 15:00 03/20/25 15:00 03/20/25 15:00 03/20/25 15:00 03/20/25 15:00
03/20/25 06:35
03/20/25 06:35
10 point review systems reviewed and negative unless otherwise stated
General: No obvious acute distress, pleasantly confused
Musculoskeletal right lower extremity
No significant erythema visible, moderate swelling noted right thigh
Extremity shortened externally rotated
No palpable ipsilateral knee effusion
Visible grimace and discomfort with palpation of lateral trochanteric flare and groin
Brisk cap refill distally
No other areas of bony tenderness palpation or crepitation along bones or joints on tertiary exam
Diagnostic studies
X-rays as well as CT scan right hip were reviewed by myself. Radiology report reviewed. There is been screw cut out of the cephalomedullary screw. Does not appear to have any subtrochanteric extension fracture. There is early callus formation of
intertrochanteric femur fracture. There is some residual femoral neck displaced with the cephalomedullary screw. There is no obvious disruption of the acetabulum from the screw cut out. No obvious displaced greater trochanteric femur fracture.
Assessment / Plan
84-year-old female history of dementia and 2 months status post right short cephalomedullary nail fixation with questionable fall/trauma now with cutout of right cephalomedullary screw. I did have a long and detailed discussion with the patient's
son regarding diagnosis and treatment options. We discussed postsurgical nonsurgical options. I did discuss with him on the phone potentially transfer to [facility]. He felt strongly about keeping her care at [facility].
I discussed with him I would recommend removal of implant conversion to cemented right hip hemiarthroplasty given the screw cut out. I did explain to him that this is relatively big surgery. We discussed risks benefits and alternatives and he felt
comfortable with proceeding with surgical intervention. No guarantees were given. Verbal consent was obtained. Will plan to obtain written informed consent prior to OR. Plan for OR tomorrow afternoon. Please hold Plavix aspirin and
anticoagulation in preparation for OR.
Nonweightbearing right lower extremity
N.p.o. at midnight
Please hold anticoagulation in preparation for OR
Medical management per primary team
Pain control
Plan: 2 OR tomorrow for removal of hardware right hip, conversion to cemented right hip hemiarthroplasty pending OR availability and medical clearance.
[2025-03-20] MEDS: RISPERDAL 0.5 MG PO (18:32)
[2025-03-20] MEDS: LIPITOR 40 MG PO (18:32)
[2025-03-20] MEDS: DESYREL 25 MG PO (22:19)
[2025-03-20 23:38] VITALS: BP 114/45
[2025-03-21] VITALS (40 sets, daily range): BP systolic 58–138; BP diastolic 36–59
[2025-03-21 07:17] LABS: Hematocrit 31.5 % (37.0-47.0); Hemoglobin 10.3 g/dL (12.0-16.0); Mean Corp Hgb Conc. 32.7 g/dL (33.0-37.0); Mean Corpuscular Volume 98.7 fL (81.0-99.0); Nucleated Red Blood Cells % 0 %; Platelet Count 264 10^3/uL (130-400); Red Cell Dist. Width 14.9 % (11.5-14.5)
[2025-03-21 07:59] LABS: Blood Urea Nitrogen 13 mg/dl (7-17); Calcium 9.3 mg/dl (8.4-10.2); Carbon Dioxide 28 mmol/L (22-30); Chloride 103 mmol/L (98-107); Estimated Creatinine Clearance 51 ml/min; Glucose 105 mg/dl (70-99); Potassium 3.9 mmol/L (3.5-5.1); Sodium 136 mmol/L (135-145); eGFR > 60.00
[2025-03-21] MEDS: FEOSOL 325 MG PO (09:15)
[2025-03-21] MEDS: COLACE 100 MG PO (09:15)
[2025-03-21] MEDS: OSCAL 500 + D 500 MG PO (09:15)
[2025-03-21] MEDS: VITAMIN D3 (cholecalciferol) 125 MCG PO (09:15)
[2025-03-21] MEDS: PAXIL 20 MG PO (09:15)
[2025-03-21] MEDS: ZESTRIL PO (09:15)
[2025-03-21] MEDS: TYLENOL 1000 MG PO (09:15)
[2025-03-21] MEDS: TOPROL XL 25 MG PO (09:15)
[2025-03-21] MEDS: PROTONIX 40 MG PO (09:15)
[2025-03-21] MEDS: THERAGRAN PO (09:17)
--- NOTE | 2025-03-21 10:43 | W.PN.HOSP.TC ---
Today's Communication/Plan
-
ECHO
OR today
trend hgb post op
pain control
IVF
Assessment / Plan
Assessment / Plan
General: Well Developed, Well Nourished and No Apparent Distress
HEENT: NormoCephalic, Moist mucous membranes and Atraumatic
Respiratory: Clear
Cardiac: S1/S2 and Regular Rhythm; No Murmur or Rub
GI: Soft, Non Tender, Non Distended and Normal Bowel Sounds;
Rectal: Deferred by Provider
Musculoskeletal: No Clubbing, No Cyanosis and No Edema
Skin: No Rash
Neuro: Nonfocal/grossly intact
Psych-anxious
#Persistent R hip pain with acute R femur fracture
# Recent right intertrochanteric proximal femur fracture status post recent ORIF with gamma nail placement
-Lower extremtiy CT report noted
-Tylenol, tramadol for pain as needed
-N.p.o. with plan for Arthoplasty today. IVF in the interim
-Hold Plavix/asa per orthopedics
-Patient currently denies any chest pain at rest or exertion prior to arrival to the hospital. Looking through records and confirmed with patient daughter patient with no cardiac history or cardiac stent placement. EKG with incomplete right
bundle branch block which was noted previously and ST-T wave changes noted. Per daughter only history of HTN/CVA. Check echocardiogram. Patient with RCRI score 1.1% cardiac risk event for intermediate hip surgery. Risk outweighs benefits and
overall appears medically stable for medically necessary surgery.
Chronic anemia
-Hgb noted. Monitor hgb for now. transfuse for hgb<7.
-Family did not want her to go through extensive work up.
Anxiety/depression
- Continue paroxetine, Risperdal
Sjogren syndrome
GERD
- Continue esomeprazole
History of CVA
- Continue statin
- Hold Plavix/asa
Hyperlipidemia
Essential hypertension
- Continue amlodipine
- Continue lisinopril
- Continue metoprolol
Dementia without behavioral disturbance
-monitor mentation for now
Insomnia
- Continue trazodone
DNR/DNI
DVT prophylaxis�SCDs pre-op. post op per orthopedic
d/w with patient daughter at [facility] in details.
Anticipated Discharge: > 48 hours
Subjective/Interval History
-
Date of Service: March 21, 2025
states she is anxious about surgery
no chest pain here or prior to coming into hospital
states about mild R hip pain
Objective Data
-
Labs:
Laboratory Results
03/21/25
06:48
WBC 7.0
Hgb 10.3 L
Hct 31.5 L
Plt Count 264
Sodium 136
Potassium 3.9
Chloride 103
Carbon Dioxide 28
BUN 13
Creatinine 0.7
Glucose 105 H
Calcium 9.3
Vital Signs:
Vital Signs
Temp Pulse Resp BP Pulse Ox
98.4 F 76 16 138/57 96
03/21/25 07:00 03/21/25 07:00 03/21/25 07:00 03/21/25 07:00 03/21/25 07:00
I&O
03/20/25 03/21/25 03/22/25
06:59 06:59 06:59
Intake Total 240 / 240 360 / 360
Output Total 200 / 200 800 / 800
Balance 40 / 40 -440 / -440
Data Reviewed
-
Total Time Spent with Patient (in minutes): 55
--- NOTE | 2025-03-21 11:49 | CM ---
Patient chart reviewed
OR today
spoke with Carol at [facility] - patient is LTC resident at [facility]
referral placed in [facility]
PLAN: [facility] CM to continue to follow
[2025-03-21] MEDS: LR 1000 IV (12:15)
--- NOTE | 2025-03-21 14:25 | PTCARENOTE ---
Patient sent to OR at 1424. Family at bedside. Son sent to OR to sign consent.
--- NOTE | 2025-03-21 14:28 | PN.CDI ---
CDI
- -
CDI:
Physician Documentation Request
Admit Date: 03/19/25 13:07
Dear Doctor Damaris,
Patient admitted with acute right femur fracture.
03/19 Nursing skin assessment, 'Stage 1 sacral pressure injury, POA.'
Physician documentation of the type and location of wounds is required for compliant documentation. Based on the above clinical findings and your assessment, please provide the following in your progress note:
Type (etiology) of ulcer/wound:
- Diabetic ulcer
- Arterial (ischemic) ulcer
- Traumatic wound
- Venous stasis ulcer
- Pressure (decubitus) ulcer
- Non-healing surgical wound
- Other
- Unable to determine
For a pressure ulcer, please also include the stage* of the ulcer:
- Stage 1 - Skin intact, non-blanchable redness
- Stage 2 - Partial thickness loss of dermis, includes intact or open blister
- Stage 3 - Full thickness tissue not including bone, tendon or muscle
- Stage 4 - Full thickness tissue loss, including exposed bone, tendon or muscle
- Unstageable - Full thickness loss in which the base of the ulcer is covered by slough (yellow, allen, newton, green or brown) and/or eschar (allen, brown or black) in the wound bed.
- Unable to determine
Use of terms such as suspected, likely, concern for, or probable (associated with a specific diagnosis that is being evaluated, monitored, or treated as if it exists) are acceptable and can be coded in the inpatient setting, when documented at the
time of discharge.
Thank you,
Holly HUITRON,RN,CCDS
CDI Specialist
Available via tiger text
Please use your independent medical judgment in providing your response.
*Source: National Pressure Ulcer Advisory Panel (NPUAP)
--- NOTE | 2025-03-21 18:36 | OR.RPT ---
Operative Report
Operative Report
Date
03/21/2025
Anesthesia Type:
General
Operative Indications:
Right cephalomedullary nail screw cut out
Operative Findings :
Same
Complications:
None
Implants:
Regan versys cemented revision/calcar stem, size 15 x 180 mm in length, 43 bipolar shell, 28+3.5 mm head
Procedure and Technique:
Removal of hardware right hip, conversion to right cemented hip hemiarthroplasty
INDICATIONS FOR PROCEDURE:
Patient is a 84-year-old female history of dementia who about 2 months ago sustained a right intertrochanteric femur fracture. She subsequently underwent short cephalomedullary nail fixation. She returned to the emergency department this weekend
with right hip pain and inability to bear weight. I had spoken with her rehab facility and they had obtained x-rays that showed screw cut out of the right cephalomedullary nail after questionable fall. She was admitted to the hospitalist service.
I long discussion with the patient's son regarding diagnosis and treatment options. We discussed with surgical nonsurgical options. Son elected to proceed with surgery. We discussed risks benefits and alternatives to surgery. We discussed the
usual and expected perioperative and postoperative course. No guarantees were given. After discussion written informed consent was obtained.
OPERATIVE PROCEDURE:
Patient was seen and identified in the preoperative holding area. Operative extremities marked. All questions were addressed and answered. She was taken to the operating room where general anesthesia was administered. Patient was placed in a
lateral decubitus position with the aid of a beanbag. Operative extremity was prepped and draped in normal sterile fashion. Preoperative antibiotics were addressed. Timeout was performed again identifying the correct operative extremity.
Standard posterolateral approach to the hip was taken. Sharp dissection was carried through skin subcutaneous tissues deep fascial layer. There was notable scar tissue and callus formation. Under fluoroscopic guidance, the cephalomedullary screw
was removed and confirmed on fluoroscopy. Standard posterior approach to the hip was then taken. Hip was slightly internally rotated. Piriformis was identified and taken down off of the greater trochanter. There was really no good tissue for
takedown of external rotators or repair. T capsulotomy was performed and leaflets were tagged. Femoral head was then removed and sized to be a 43 mm head. This was checked with ball on a stick and found to have good suction fit. Hip was then
flexed and internally rotated. There was notable malunion of the lesser trochanter. There was some bone loss anteriorly in the area of the calcar. There was significant scar scar tissue and callus that was removed to identify the medullary canal.
Utilizing a canal finder and lateralizing reamers first, stepwise broaching was then performed in appropriate version.. Flexible reamers were also utilized distally to accept a size 15 revision calcar stem. Trial was then checked on fluoroscopy
and confirmed to be released to medullary canal with distal to the most distal screw hole. A +3.5 mm head was trialed and leg lengths were found to be appropriate and leg was found to be quite stable through range of motion. Trials were removed
and medullary canal was prepared for pressurized cement. Cement restrictor was placed. Stem was then placed appropriate depth and appropriate anteversion held in place until the cement cured. Final implants were then placed and trialed and again
found to be quite stable with appropriate leg lengths. Satisfied with extent surgery wound was copiously irrigated normal saline solution. Betadine solution was also used to irrigate the wound. The piriformis and capsule were then repaired to the
tip the greater trochanter through transosseous tunnels. Wound was then closed in layered fashion utilizing 0 Vicryl and #1 strata fix suture for deep fascial layer, 2-0 Vicryl for subcutaneous layer silverio for skin. Sterile dressings were
applied consisting of Aquacel dressing. Anesthesia was reversed and patient was taken to PACU in stable condition. Leg lengths were clinically appropriate. PACU x-rays confirmed appropriate position of the implant. Postoperative plans include
weightbearing to patient's tolerance operative family. Recommend posterior hip precautions. Recommend Lovenox renally dosed daily for DVT prophylaxis. Plan to see patient back in office in 2 to 3 weeks repeat clinical assessment removal of
silverio.
Disposition:
Disposition PACU stable condition
[2025-03-21 19:15] LABS: Hematocrit 17.4 % (37.0-47.0); Hemoglobin 5.8 g/dL (12.0-16.0); Mean Corp Hgb Conc. 33.3 g/dL (33.0-37.0); Mean Corpuscular Volume 96.7 fL (81.0-99.0); Platelet Count 262 10^3/uL (130-400); Red Cell Dist. Width 15.4 % (11.5-14.5)
[2025-03-21] MEDS: NSS 500 IV (21:28)
--- NOTE | 2025-03-21 21:37 | PTCARENOTE ---
Patient received from PACU. Patient arousable. Pt oriented to self. Pt drowsy, held HS PO medications. R hip original post-op dressing intact. Small amount of old blood/drainage noted. Ice pack applied to surgical site. Hip stabilized with hip
abduction foam. Neurovascular checks done see worklist. Positive pulses. B/l foot pumps intact. Pt receiving second unit PRBCs, ended by this RN. Administered 500cc NSS bolus. BPs soft, however SBP >100. Pt receiving maintenance fluids at 80/hr. To
recheck H&H at 0000. NSR on the monitor. Received pt on 2L NC, 98%. Assessment and care as charted.
[2025-03-21] MEDS: NSS 1000 IV (22:23)
[2025-03-21] MEDS: TYLENOL PO (22:25)
[2025-03-21] MEDS: LIPITOR PO (22:25)
[2025-03-21] MEDS: OSCAL 500 + D PO (22:25)
[2025-03-21] MEDS: COLACE PO (22:25)
[2025-03-21] MEDS: RISPERDAL PO (22:26)
[2025-03-22] VITALS (36 sets, daily range): BP systolic 84–131; BP diastolic 35–93; PULSE 86–87; O2SAT 95
[2025-03-22] MEDS: ANCEF 5 IV ×2 (00:06→09:50)
[2025-03-22 00:34] LABS: Hematocrit 27.6 % (37.0-47.0); Hemoglobin 9.4 g/dL (12.0-16.0)
[2025-03-22 06:04] LABS: Hematocrit 26.9 % (37.0-47.0); Hemoglobin 9.1 g/dL (12.0-16.0); Mean Corp Hgb Conc. 33.8 g/dL (33.0-37.0); Mean Corpuscular Volume 90.0 fL (81.0-99.0); Nucleated Red Blood Cells % 0 %; Platelet Count 217 10^3/uL (130-400); Red Cell Dist. Width 16.5 % (11.5-14.5)
[2025-03-22 06:24] LABS: Blood Urea Nitrogen 16 mg/dl (7-17); Calcium 8.0 mg/dl (8.4-10.2); Carbon Dioxide 24 mmol/L (22-30); Chloride 105 mmol/L (98-107); Estimated Creatinine Clearance 44 ml/min; Glucose 112 mg/dl (70-99); Potassium 4.5 mmol/L (3.5-5.1); Sodium 132 mmol/L (135-145); eGFR > 60.00
[2025-03-22] MEDS: NSS IV (08:17)
[2025-03-22] MEDS: COLACE 100 MG PO ×2 (08:50→19:47)
[2025-03-22] MEDS: TOPROL XL 25 MG PO (08:50)
[2025-03-22] MEDS: PAXIL 20 MG PO (08:50)
[2025-03-22] MEDS: LOVENOX 40 MG SC (08:50)
[2025-03-22] MEDS: FEOSOL 325 MG PO (08:50)
[2025-03-22] MEDS: VITAMIN D3 (cholecalciferol) 125 MCG PO (08:50)
[2025-03-22] MEDS: PROTONIX 40 MG PO (08:50)
[2025-03-22] MEDS: TYLENOL 1000 MG PO ×2 (08:51→19:47)
[2025-03-22] MEDS: OSCAL 500 + D 500 MG PO ×2 (08:51→19:47)
[2025-03-22] MEDS: THERAGRAN 1 TABLET PO (08:51)
--- NOTE | 2025-03-22 11:21 | W.PN.HOSP.TC ---
Today's Communication/Plan
-
PT/OT
lovenox
restart asa/plavix in 24h? await ortho input
trend hgb
midodrine
Assessment / Plan
Assessment / Plan
General: Well Developed, Well Nourished and No Apparent Distress
HEENT: NormoCephalic, Moist mucous membranes and Atraumatic
Respiratory: Clear
Cardiac: S1/S2 and Regular Rhythm; No Murmur or Rub
GI: Soft, Non Tender, Non Distended and Normal Bowel Sounds;
Rectal: Deferred by Provider
Musculoskeletal: Right hip Aquacel dressing noted
Skin: No Rash
Neuro: Nonfocal/grossly intact
Psych-anxious
#Persistent R hip pain with acute R femur fracture
# Recent right intertrochanteric proximal femur fracture status post recent ORIF with gamma nail placement
-Lower extremtiy CT report noted
-Tylenol, tramadol for pain as needed
-Hold Plavix/asa per orthopedics -restart pending ortho clearance
-PT/OT
Acute blood loss anemia likely secondary to surgery
Chronic anemia
Hypotension likely 2/2 blood loss
-started on midodrine. Lisinopril stopped for now.
-Status post 2 units of PRBC. Hemoglobin at 9.1.
-Family did not want her to go through extensive work up as outpatient for chronic anemia.
Anxiety/depression
- Continue paroxetine, Risperdal
Sjogren syndrome
GERD
- Continue esomeprazole
History of CVA
- Continue statin
- Hold Plavix/asa
Hyperlipidemia
Essential hypertension
- Continue amlodipine
- Continue lisinopril
- Continue metoprolol
Dementia without behavioral disturbance
-monitor mentation for now
Insomnia
- Continue trazodone
Stage 1 sacral pressure injury, POA
-wound care/offloading
DNR/DNI
DVT prophylaxis�LOVENOX for dvt ppx
d/w with patient daughter at bedside in details.
Dispo-back to [facility] as LTC resident
Anticipated Discharge: Within 24 hours
Subjective/Interval History
-
Date of Service: March 22, 2025
Postop events noted
Patient with significant blood loss and was transferred to IMU
Received 2 units of PRBC overnight
Currently states some mild discomfort/pain in right hip
Objective Data
-
Labs:
Laboratory Results
03/22/25 03/22/25
00:19 05:43
WBC 13.4 H
Hgb 9.4 L D 9.1 L
Hct 27.6 L 26.9 L
Plt Count 217
Sodium 132 L
Potassium 4.5
Chloride 105
Carbon Dioxide 24
BUN 16
Creatinine 0.8
Glucose 112 H
Calcium 8.0 L
Vital Signs:
Vital Signs
Temp Pulse Resp BP Pulse Ox
98.1 F 84 18 115/44 93
03/22/25 03:00 03/22/25 11:10 03/22/25 06:00 03/22/25 11:10 03/22/25 06:00
I&O
03/21/25 03/22/25 03/23/25
06:59 06:59 06:59
Intake Total 360 / 360 2530 / 2530
Output Total 800 / 800 300 / 300
Balance -440 / -440 2230 / 2230
Data Reviewed
-
Total Time Spent with Patient (in minutes): 55
--- NOTE | 2025-03-22 15:17 | PTCARENOTE ---
Rec'd pt this AM. OOB x2 to chair with walker, pleasantly confused. family at bedside. vital signs stable.
--- NOTE | 2025-03-22 15:38 | W.PN.ORTHO ---
Today's Communication / Plan
-
84 yo dementia POD 1 s/p removal of hardware right hip, conversion to cemented right hip hemiarthroplasty
WBAT RLE
PT/OT: posterior hip precautions
Pain control
DVT ppx: lovenox renally dosed X 28 days
Pain control
Medical management per primary team
Follow up outpatient in 2-3 weeks repeat clinical assessment, removal of silverio
Subjective
.
.:
Patient resting comfortably in chair with family at bedside. Per family, patient was able to get out of bed today and to chair without significant pain.
Vital Signs and Labs
.
Vital Signs and Labs:
Lab Results
03/22/25 05:43
03/22/25 05:43
Temp Pulse Resp BP Pulse Ox
98.0 F 78 10 109/46 97
03/22/25 15:16 03/22/25 14:30 03/22/25 14:30 03/22/25 14:02 03/22/25 14:30
PT 14.4 Sec (11.4-14.6) 03/19/25 12:15
INR 1.09 03/19/25 12:15
Physical Exam
-
MSK RLE
Dressing without significant drainage
Moderate swelling thigh
Clinically leg lengths appropriate, no short, perhaps slightly elongated
+ehl/fhl, ankle df/p
BCR
[2025-03-22] MEDS: LIPITOR 40 MG PO (17:22)
[2025-03-22] MEDS: RISPERDAL 0.5 MG PO (17:22)
[2025-03-22] MEDS: MIRALAX 17 GRAMS PO (17:22)
[2025-03-22] MEDS: DESYREL 25 MG PO (22:26)
[2025-03-23] VITALS (26 sets, daily range): BP systolic 97–153; BP diastolic 37–89; PULSE 89–91; O2SAT 95
--- NOTE | 2025-03-23 05:05 | PTCARENOTE ---
Received pt at change of shift. Pt awake and alert but not oriented. Unable to answer her . Spoke to daughter on the phone who says this is normal for nighttime. Pt eager to leave hospital. Right hip dressing C/D/I. Hip precautions remain
in place. Call daniels within reach.
[2025-03-23 06:06] LABS: Hematocrit 22.9 % (37.0-47.0); Hemoglobin 7.6 g/dL (12.0-16.0); Mean Corp Hgb Conc. 33.2 g/dL (33.0-37.0); Mean Corpuscular Volume 94.6 fL (81.0-99.0); Nucleated Red Blood Cells % 0 %; Platelet Count 145 10^3/uL (130-400); Red Cell Dist. Width 16.6 % (11.5-14.5)
[2025-03-23 06:15] LABS: Blood Urea Nitrogen 21 mg/dl (7-17); Calcium 8.3 mg/dl (8.4-10.2); Carbon Dioxide 27 mmol/L (22-30); Chloride 104 mmol/L (98-107); Estimated Creatinine Clearance 39 ml/min; Glucose 130 mg/dl (70-99); Potassium 4.2 mmol/L (3.5-5.1); Sodium 132 mmol/L (135-145); eGFR > 60.00
[2025-03-23] MEDS: VITAMIN D3 (cholecalciferol) 125 MCG PO (09:09)
[2025-03-23] MEDS: LOVENOX 40 MG SC (09:10)
[2025-03-23] MEDS: PAXIL 20 MG PO (09:10)
[2025-03-23] MEDS: OSCAL 500 + D 500 MG PO ×2 (09:10→20:26)
[2025-03-23] MEDS: TYLENOL 1000 MG PO ×2 (09:10→20:26)
[2025-03-23] MEDS: LOW STRENGTH ASPIRIN 81 MG PO (09:10)
[2025-03-23] MEDS: FEOSOL 325 MG PO (09:10)
[2025-03-23] MEDS: PROTONIX 40 MG PO (09:10)
[2025-03-23] MEDS: COLACE 100 MG PO ×2 (09:10→20:26)
[2025-03-23] MEDS: PLAVIX 75 MG PO (09:10)
[2025-03-23] MEDS: THERAGRAN 1 TABLET PO (09:10)
[2025-03-23] MEDS: TOPROL XL PO (09:14)
--- NOTE | 2025-03-23 12:11 | W.PN.HOSP.TC ---
Today's Communication/Plan
-
tx out of IMU
Midodrine for now
PRBC ordered
restart asa/plavix
trend h/h
Assessment / Plan
Assessment / Plan
General: Well Developed, Well Nourished and No Apparent Distress
HEENT: NormoCephalic, Moist mucous membranes and Atraumatic
Respiratory: Clear
Cardiac: S1/S2 and Regular Rhythm; No Murmur or Rub
GI: Soft, Non Tender, Non Distended and Normal Bowel Sounds;
Rectal: Deferred by Provider
Musculoskeletal: Right hip Aquacel dressing noted
Skin: No Rash
Neuro: Nonfocal/grossly intact
Psych-anxious
#Persistent R hip pain with acute R femur fracture
# Recent right intertrochanteric proximal femur fracture status post recent ORIF with gamma nail placement
-Lower extremtiy CT report noted
-Tylenol, tramadol for pain as needed
-Discussed with Dr. Contreras and okay to restart aspirin and Plavix
-PT/OT
Acute blood loss anemia likely secondary to surgery
Chronic anemia
Hypotension likely 2/2 blood loss
-started on midodrine. Metoprolol and lisinopril stopped for now.
- Hemoglobin 7.6. Will order additional unit of PRBC today
-Family did not want her to go through extensive work up as outpatient for chronic anemia.
Anxiety/depression
- Continue paroxetine, Risperdal
Sjogren syndrome
GERD
- Continue esomeprazole
History of CVA
- Continue statin
- Hold Plavix/asa
Hyperlipidemia
Essential hypertension
- now with hypotension at times-meds stopped. Midodrine started.
Dementia without behavioral disturbance
-monitor mentation for now
Insomnia
- Continue trazodone
Stage 1 sacral pressure injury, POA
-wound care/offloading
DNR/DNI
DVT prophylaxis�LOVENOX for dvt ppx
d/w with patient daughter at bedside in details.
Dispo-back to [facility] as LTC resident
Anticipated Discharge: Within 24 hours
Subjective/Interval History
-
Date of Service: March 23, 2025
Hip pain with movement
Objective Data
-
Labs:
Laboratory Results
03/23/25
05:36
WBC 10.0
Hgb 7.6 L
Hct 22.9 L
Plt Count 145 D
Sodium 132 L
Potassium 4.2
Chloride 104
Carbon Dioxide 27
BUN 21 H
Creatinine 0.9
Glucose 130 H
Calcium 8.3 L
Vital Signs:
Vital Signs
Temp Pulse Resp BP Pulse Ox
98.0 F 86 21 107/42 97
03/23/25 11:19 03/23/25 11:30 03/23/25 11:30 03/23/25 11:00 03/23/25 11:30
I&O
03/22/25 03/23/25 03/24/25
06:59 06:59 06:59
Intake Total 2530 / 2530
Output Total 300 / 300
Balance 2230 / 2230
Data Reviewed
-
Total Time Spent with Patient (in minutes): 55
--- NOTE | 2025-03-23 12:53 | CM ---
F/U: Hospitalist stated that patient is likely ready tomorrow, but does not want transport arranged yet. KEON Wrne met with daughter, had IMM signed, sent updated clinical to [facility], and informed the Liaison Chele who is off tomorrow. Chele
is aware that KEON Wren's coverage will call the building re: transport time. PLAN: Return to [facility] Memory Care Unit.
--- NOTE | 2025-03-23 13:18 | PTCARENOTE ---
Assumed care of pt from night RN. Oriented only to self. NSR on tele, HR 80s. SpO2 98% on room air. VSS. R hip dressing with small amount of drainage. Hgb 7.6, new type and screen sent. 1 unit PRBCs ordered and currently infusing. Pt downgraded to
med surg. Report given to 2 south RN. Awaiting transport for transfer at this time. Plan for d/c tomorrow back to [facility].
[2025-03-23 16:59] LABS: Hematocrit 30.3 % (37.0-47.0); Hemoglobin 10.1 g/dL (12.0-16.0)
[2025-03-23] MEDS: MIRALAX 17 GRAMS PO (17:39)
[2025-03-23] MEDS: LIPITOR 40 MG PO (17:39)
[2025-03-23] MEDS: RISPERDAL 0.5 MG PO (17:39)
--- NOTE | 2025-03-23 17:42 | PTCARENOTE ---
Received patient from IMU via stretcher around 1730. Patient oriented to room. Chair and bed alarm in place. Call daniels in reach. Patient in hip chair eating dinner.
[2025-03-23] MEDS: DESYREL 25 MG PO (20:26)
[2025-03-24 06:29] LABS: Hematocrit 24.9 % (37.0-47.0); Hemoglobin 8.5 g/dL (12.0-16.0); Mean Corp Hgb Conc. 34.1 g/dL (33.0-37.0); Mean Corpuscular Volume 88.9 fL (81.0-99.0); Nucleated Red Blood Cells % 0 %; Platelet Count 144 10^3/uL (130-400); Red Cell Dist. Width 17.1 % (11.5-14.5)
[2025-03-24 07:20] VITALS: BP 153/58
[2025-03-24] MEDS: FEOSOL 325 MG PO (09:14)
[2025-03-24] MEDS: VITAMIN D3 (cholecalciferol) 125 MCG PO (09:14)
[2025-03-24] MEDS: LOVENOX 40 MG SC (09:14)
[2025-03-24] MEDS: PAXIL 20 MG PO (09:14)
[2025-03-24] MEDS: PLAVIX 75 MG PO (09:14)
[2025-03-24] MEDS: OSCAL 500 + D 500 MG PO ×2 (09:14→19:38)
[2025-03-24] MEDS: PROTONIX 40 MG PO (09:14)
[2025-03-24] MEDS: COLACE 100 MG PO ×2 (09:15→19:39)
[2025-03-24] MEDS: LOW STRENGTH ASPIRIN 81 MG PO (09:15)
[2025-03-24] MEDS: TYLENOL 1000 MG PO ×2 (09:15→19:38)
[2025-03-24] MEDS: THERAGRAN 1 TABLET PO (09:15)
[2025-03-24 10:41] VITALS: BP 107/48; BP 119/53; BP 133/49; PULSE 87; O2SAT 95
[2025-03-24 10:42] VITALS: BP 119/53; BP 122/53; BP 133/49; PULSE 86; PULSE 91
--- NOTE | 2025-03-24 11:18 | CM ---
Patient seen at bedside with daughter Airam
spoke with Carol at [facility] & updated, tentative dc tomorrow per hospitalist
referral in [facility]
PLAN: [facility] memory care unit when stable
transportation forms on chart
--- NOTE | 2025-03-24 12:27 | W.PN.HOSP.TC ---
Today's Communication/Plan
-
Holding trazodone and Risperdal
Monitor mentation
Trend hemoglobin
Blood pressure stabilized
Assessment / Plan
Assessment / Plan
General: Well Developed, Well Nourished and No Apparent Distress
HEENT: NormoCephalic, Moist mucous membranes and Atraumatic
Respiratory: Clear
Cardiac: S1/S2 and Regular Rhythm; No Murmur or Rub
GI: Soft, Non Tender, Non Distended and Normal Bowel Sounds;
Rectal: Deferred by Provider
Musculoskeletal: Right hip Aquacel dressing noted
Skin: No Rash
Neuro: Nonfocal/grossly intact
Psych-anxious
#Persistent R hip pain with acute R femur fracture
# Recent right intertrochanteric proximal femur fracture status post recent ORIF with gamma nail placement
-Lower extremtiy CT report noted
-Tylenol, tramadol for pain as needed
-Discussed with Dr. Contreras and okay to restart aspirin and Plavix
-PT/OT
Acute blood loss anemia likely secondary to surgery
Chronic anemia
Hypotension likely 2/2 blood loss
- Blood pressure improved. Discontinue midodrine.
- Hemoglobin of 8.6 status post 2 units of PRBC so far
-Family did not want her to go through extensive work up as outpatient for chronic anemia.
Mild toxic metabolic encephalopathy likely secondary polypharmacy
- Hold trazodone and Risperdal
- Vital signs stable. Patient was able to work with physical therapy earlier today. Sitting in chair.
-
Anxiety/depression
- Continue paroxetine,
Sjogren syndrome
GERD
- Continue esomeprazole
History of CVA
- Continue statin
- Continue with aspirin and Plavix
Hyperlipidemia
Essential hypertension
- Blood pressure stabilized. Discontinue midodrine.
Dementia without behavioral disturbance
-monitor mentation for now
Insomnia
- With severe lethargy will hold trazodone and Risperdal for now
Stage 1 sacral pressure injury, POA
-wound care/offloading
DNR/DNI
DVT prophylaxis�LOVENOX for dvt ppx
d/w with patient daughter at bedside in details.
Dispo-back to [facility] as LTC resident
Anticipated Discharge: Within 24 hours
Subjective/Interval History
-
Date of Service: March 24, 2025
Lethargic and tired earlier today
Objective Data
-
Labs:
Laboratory Results
03/24/25
05:24
WBC 8.4
Hgb 8.5 L
Hct 24.9 L
Plt Count 144
Vital Signs:
Vital Signs
Temp Pulse Resp BP Pulse Ox
97.9 F 92 15 153/58 96
03/24/25 07:20 03/24/25 07:20 03/24/25 07:20 03/24/25 07:20 03/24/25 07:20
I&O
03/23/25 03/24/25 03/25/25
06:59 06:59 06:59
Intake Total 610 / 610
Balance 610 / 610
Data Reviewed
-
Total Time Spent with Patient (in minutes): 55
[2025-03-24] MEDS: TYLENOL 650 MG PO (13:48)
[2025-03-24 15:00] VITALS: BP 124/58
[2025-03-24] MEDS: LIPITOR 40 MG PO (18:45)
[2025-03-24] MEDS: MIRALAX 17 GRAMS PO (18:45)
[2025-03-24 23:00] VITALS: BP 105/40
[2025-03-24] MEDS: MAALOX 30 ML PO (23:15)
[2025-03-24] MEDS: ULTRAM 50 MG PO (23:15)
[2025-03-25] MEDS: ULTRAM 50 MG PO (05:16)
[2025-03-25 06:27] LABS: Hematocrit 22.9 % (37.0-47.0); Hemoglobin 7.7 g/dL (12.0-16.0); Mean Corp Hgb Conc. 33.6 g/dL (33.0-37.0); Mean Corpuscular Volume 89.1 fL (81.0-99.0); Nucleated Red Blood Cells % 0 %; Platelet Count 160 10^3/uL (130-400); Red Cell Dist. Width 17.2 % (11.5-14.5)
[2025-03-25 07:00] VITALS: BP 159/70
[2025-03-25] MEDS: TYLENOL 1000 MG PO (08:49)
[2025-03-25] MEDS: VITAMIN D3 (cholecalciferol) 125 MCG PO (08:49)
[2025-03-25] MEDS: FEOSOL 325 MG PO (08:50)
[2025-03-25] MEDS: COLACE 100 MG PO (08:50)
[2025-03-25] MEDS: PLAVIX 75 MG PO (08:50)
[2025-03-25] MEDS: THERAGRAN 1 TABLET PO (08:50)
[2025-03-25] MEDS: PROTONIX 40 MG PO (08:50)
[2025-03-25] MEDS: OSCAL 500 + D 500 MG PO (08:50)
[2025-03-25] MEDS: LOW STRENGTH ASPIRIN 81 MG PO (08:50)
[2025-03-25] MEDS: PAXIL 20 MG PO (08:50)
[2025-03-25] MEDS: TOPROL XL 25 MG PO (08:50)
[2025-03-25] MEDS: LOVENOX 40 MG SC (08:59)
[2025-03-25 09:55] VITALS: BP 123/52
[2025-03-25 10:14] VITALS: BP 123/52
[2025-03-25 10:35] VITALS: BP 113/48
--- NOTE | 2025-03-25 10:46 | W.PN.HOSP.TC ---
Today's Communication/Plan
-
Transfuse 1 unit of PRBC
Discontinue Plavix
Back to SNF
Assessment / Plan
Assessment / Plan
General: Well Developed, Well Nourished and No Apparent Distress
HEENT: NormoCephalic, Moist mucous membranes and Atraumatic
Respiratory: Clear
Cardiac: S1/S2 and Regular Rhythm; No Murmur or Rub
GI: Soft, Non Tender, Non Distended and Normal Bowel Sounds;
Rectal: Deferred by Provider
Musculoskeletal: Right hip Aquacel dressing noted
Skin: No Rash
Neuro: Nonfocal/grossly intact
Psych-anxious
#Persistent R hip pain with acute R femur fracture
# Recent right intertrochanteric proximal femur fracture status post recent ORIF with gamma nail placement
-Lower extremtiy CT report noted
-Tylenol, tramadol for pain as needed
-Discussed with Dr. Contreras and okay to restart aspirin and Plavix
-PT/OT
Acute blood loss anemia likely secondary to surgery
Chronic anemia
Hypotension likely 2/2 blood loss
- Blood pressure improved. Discontinue midodrine.
- Hemoglobin of 7.7 and will transfuse additional 1 unit of PRBC.
-Family did not want her to go through extensive work up as outpatient for chronic anemia and positive heme test in the past. Son and daughter stated if patient continues to have persistent problems with anemia and blood loss anemia consider hospice
Mild toxic metabolic encephalopathy likely secondary polypharmacy
- DC trazodone and Risperdal
- Vital signs stable.
- Mentation back to baseline. Can consider restarting Risperdal if needed for agitation at [facility].
Anxiety/depression
- Continue paroxetine,
Sjogren syndrome
GERD
- Continue esomeprazole
History of CVA
- Continue statin
- Continue with aspirin. Discussed with son stroke was approximately 2 years ago and at this point can consider stopping Plavix to decrease risk of bleeding as patient with chronic anemia. Son agreed with the plan.
Hyperlipidemia
Essential hypertension
- Blood pressure stabilized. Discontinue midodrine.
Dementia without behavioral disturbance
-monitor mentation for now
Insomnia
- Can consider Risperdal if needed for insomnia and agitation versus melatonin.
Stage 1 sacral pressure injury, POA
-wound care/offloading
DNR/DNI
DVT prophylaxis�LOVENOX for dvt ppx
Discussed with patient's son Dustin at bedside in detail.
Dispo-back to [facility] as LTC resident after blood transfusion.
More than 30 minutes spent in discharge including
Final examination of the patient
Summarizing hospital stay
Instructions for continuing care to all relevant caregivers
Preparation of discharge records, prescriptions, and referral forms
Total time spent (in minutes): 53
Anticipated Discharge: Today
Subjective/Interval History
-
Date of Service: March 25, 2025
More awake this morning
eating breakfast
intermittent hip pain
Objective Data
-
Labs:
Laboratory Results
03/25/25
05:50
WBC 8.0
Hgb 7.7 L
Hct 22.9 L
Plt Count 160
Vital Signs:
Vital Signs
Temp Pulse Resp BP Pulse Ox
99.0 F 76 16 113/48 97
03/25/25 10:35 03/25/25 10:35 03/25/25 10:35 03/25/25 10:35 03/25/25 09:55
I&O
03/24/25 03/25/25 03/26/25
06:59 06:59 06:59
Intake Total 610 / 610 0 / 0 0 / 0
Balance 610 / 610 2129 / 2129 0 / 0
Data Reviewed
-
Total Time Spent with Patient (in minutes): 55
--- NOTE | 2025-03-25 10:52 | W.DCSUMMARY ---
Discharge Summary
Discharge Data
Date of Admission: 03/19/25
Date of Discharge: 03/25/25
-
Pending Results: No
Hospital Course
84-year-old female with extensive past medical history of dementia, insomnia, hypertension, hyperlipidemia, stroke, anxiety, depression, chronic anemia who is presenting from long term with right hip pain. Patient was working with physical
therapy as outpatient and remained with progressive right hip pain. X-rays were performed which was found to be abnormal. Underwent lower extremity CAT scan. Dr. Contreras took patient to the OR and s/p removal of hardware right hip, conversion
to cemented right hip hemiarthroplasty. Postop patient with significant blood loss and hypotension and was transferred to IMU. Patient with Levophed which was weaned down to midodrine. Patient blood pressure stabilized and midodrine was
eventually discontinued. Patient with acute on chronic blood loss. Patient received total of 3 nights of PRBC. Patient also had episode of toxic metabolic encephalopathy/lethargy which was deemed polypharmacy due to combination of trazodone and
Risperdal which was discontinued. Patient case was discussed with family members. Family understand that patient with chronic anemia and that if she persistently requires transfusion that they would consider hospice as they do not want patient to
undergo extensive gastroenterology and further workup. Patient had a stroke approximately 2 years or more. Discussed with gil Chan that patient can be taken off Plavix as no recent indication and it will also decrease risk of bleeding in the
future. Son understood and agreed with the plan. Patient was eval by physical and Occupational Therapy and be discharged back to [facility].
Discharge Plan
-
Patient Disposition: Assisted/SNF
Discharge Diagnosis/Procedures: Persistent R hip pain with acute R femur fracture s/p R hip Removal of hardware, conversion to right cemented hip hemiarthroplasty
Acute blood loss anemia s/p blood transfusion
Toxic metabolic encephalopathy likely secondary to polypharmacy
Condition: Fair
Diet: Low Cholesterol
Activity: As tolerated
Driving Restrictions: No driving
Blood Work: cbc in 5-7 days via primary doctor.
Activity Restrictions/Additional Instructions:
Prefer high chair for meals and when OOB.
PT/OT: posterior hip precautions
DVT ppx: lovenox renally dosed X 28 days
Follow up outpatient in 2-3 weeks repeat clinical assessment, removal of silverio
Referrals:
Pedro Luis Loredo DO [Family Provider, Family Practice] - in less than 1 week
Dwain Contreras MD [Active, Orthopedics] - in two to three weeks
Additional Discharge Medication Instructions: lisinopril was discontinued.
Plavix was discontinued
Trazadone and risperidal was stopped for now. If needed for agitation/sleep recommend restart Risperdal.
Prescriptions:
New
enoxaparin 40 mg/0.4 mL Syringe
40 mg SC DAILY 26 Days Qty: 10.4 0RF
Continued
acetaminophen [Tylenol] 325 mg Tablet
650 mg PO Q4HPRN PRN (Reason: mild pain/fever)
therapeutic multivitamin Tablet
1 tab PO DAILY
paroxetine HCl [Paxil] 20 mg Tablet
20 mg PO DAILY
cevimeline 30 mg Capsule
30 mg PO BID
aspirin 81 mg Tablet,Chewable
81 mg PO DAILY
metoprolol succinate [Toprol XL] 25 mg Tablet Extended Release 24 Hr
25 mg PO DAILY
calcium carbonate-vitamin D3 [Calcium 600 + D(3)] 600 mg-10 mcg (400 unit) Tablet
1 tab PO BID
atorvastatin 40 mg tablet
40 mg PO QPM
cholecalciferol (vitamin D3) 125 mcg (5,000 unit) capsule
125 mcg PO DAILY
docusate sodium 100 mg Capsule
100 mg PO BID Qty: 0 0RF
magnesium hydroxide [Milk of Magnesia] 400 mg/5 mL Suspension
2,400 mg PO HSPRN PRN (Reason: constipation)
bisacodyl [Dulcolax (bisacodyl)] 10 mg Suppository
10 mg SD DAILYPRN PRN (Reason: when MOM ineffective)
ferrous sulfate 325 mg (65 mg iron) Tablet
325 mg PO DAILY
acetaminophen 500 mg Tablet
1,000 mg PO BID
omeprazole 20 mg Capsule,Delayed Release(Dr/Ec)
40 mg PO DAILY
tramadol 50 mg Tablet
50 mg PO Q6HPRN PRN (Reason: moderate to severe pain) Qty: 12 0RF
Discontinued
trazodone 50 mg Tablet
25 mg PO HS
clopidogrel [Plavix] 75 mg Tablet
75 mg PO DAILY
risperidone [Risperdal] 0.5 mg Tablet
0.5 mg PO QPM
lisinopril 2.5 mg tablet
2.5 mg PO DAILY
Discharge Date and Time
Print Language: PUERTO RICAN
--- NOTE | 2025-03-25 11:57 | CM ---
CM following re: discharge planning.
Reviewed pt's chart, met with pt.
According to pt is medically stable to be discharged today. Both pt and her son are aware, expressed their agreement. IMM reviewed, placed on chart, pt has a copy.
Pt is a LTC resident at [facility]. A referral to [facility] made, spoke to director of vendor management and she confirmed that pt is accepted for admission today.
[facility] to arrange ambulance transport B[facility]. [facility] is on the chart.
[facility] nursing report: [phone] ask for nursing suspect artist supervisor.
[facility] discharge instructions: [phone]
D/c plan: [facility]
[2025-03-25 13:00] VITALS: BP 125/60
[2025-03-25 14:26] LABS: Hematocrit 27.6 % (37.0-47.0); Hemoglobin 9.4 g/dL (12.0-16.0)
[2025-03-25 15:00] VITALS: BP 140/93
--- NOTE | 2025-03-25 16:10 | PTCARENOTE ---
received call back from [facility] supervisor cutting and boningAgatha-verbal report provided. pt transported via ambulance back to [facility] at 1545.
== END 2025-03-25 15:54 | DRG 498 ==
LOC: 2 SOUTH 13:07
PROVIDERS: Nurse Practitioner Family; Student in an Organized Health Care Education/Training Program; ADMITTING PHYSICIAN Hospitalist; ATTENDING PHYSICIAN Hospitalist; CONSULT PHYSICIAN Orthopaedic Surgery; EMERGENCY PHYSICIAN Emergency Medicine; FAMILY PHYSICIAN Student in an Organized Health Care Education/Training Program
PROC: 0SRR0J9 Replacement of Right Hip Joint, Femoral Surface with Synthetic Substitute, Cemented, Open Approach (ICD-10-PCS; 2025-03-21)
PROC: 30233N1 Transfusion of Nonautologous Red Blood Cells into Peripheral Vein, Percutaneous Approach (ICD-10-PCS; 2025-03-21)
PROC: 0QP604Z Removal of Internal Fixation Device from Right Upper Femur, Open Approach (ICD-10-PCS; 2025-03-21)
DX: S72.141A Displaced intertrochanteric fracture of right femur, initial encounter for closed fracture (principal); G92.8 Other toxic encephalopathy; D62 Acute posthemorrhagic anemia; F03.918 Unspecified dementia, unspecified severity, with other behavioral disturbance; F03.93 Unspecified dementia, unspecified severity, with mood disturbance; F03.94 Unspecified dementia, unspecified severity, with anxiety; M97.01XA Periprosthetic fracture around internal prosthetic right hip joint, initial encounter; E86.0 Dehydration; I45.10 Unspecified right bundle-branch block; F32.A Depression, unspecified; M35.00 Sjogren syndrome, unspecified; K21.9 Gastro-esophageal reflux disease without esophagitis; I10 Essential (primary) hypertension; E78.00 Pure hypercholesterolemia, unspecified; G47.00 Insomnia, unspecified; W19.XXXA Unspecified fall, initial encounter; Y93.9 Activity, unspecified; Y92.129 Unspecified place in nursing home as the place of occurrence of the external cause; I95.9 Hypotension, unspecified; L89.151 Pressure ulcer of sacral region, stage 1; Z66 Do not resuscitate; Z60.2 Problems related to living alone; Z91.81 History of falling; Z79.82 Long term (current) use of aspirin; Z79.899 Other long term (current) drug therapy; Z79.02 Long term (current) use of antithrombotics/antiplatelets; Z86.73 Personal history of transient ischemic attack (TIA), and cerebral infarction without residual deficits
CPT/HCPCS: 73502; 73552; 73700; 76000; 80048; 80053; 85014; 85018; 85025; 85027; 85610; 85730; 86850; 86900; 86901; 86920; 87070; 93005; 93306; 97163; 97167; 97530; 97535; 99285; C1713; C1769; C1776; P9016; P9045

== ENCOUNTER → 2025-03-31 11:15 | Outpatient (REF) | payer OTHER, MEDICARE, SELFPAY ==
[2025-03-31 12:02] LABS: Hematocrit 27.4 % (37.0-47.0); Hemoglobin 9.0 g/dL (12.0-16.0); Mean Corp Hgb Conc. 32.8 g/dL (33.0-37.0); Mean Corpuscular Volume 93.5 fL (81.0-99.0); Nucleated Red Blood Cells % 0 %; Platelet Count 236 10^3/uL (130-400); Red Cell Dist. Width 18.5 % (11.5-14.5)
== END ==
LOC: OLABN 11:15
PROVIDERS: ATTENDING PHYSICIAN Student in an Organized Health Care Education/Training Program
DX: D50.9 Iron deficiency anemia, unspecified (principal)
CPT/HCPCS: 36415; 85025

== ENCOUNTER → 2025-04-17 12:19 | Outpatient (REF) | payer OTHER, MEDICARE, SELFPAY ==
[2025-04-17 14:46] LABS: Blood Urea Nitrogen 15 mg/dl (7-17); Calcium 9.0 mg/dl (8.4-10.2); Carbon Dioxide 27 mmol/L (22-30); Chloride 107 mmol/L (98-107); Glucose 87 mg/dl (70-99); Potassium 4.4 mmol/L (3.5-5.1); Sodium 137 mmol/L (135-145); eGFR > 60.00
[2025-04-17 15:04] LABS: Vitamin D, 25-OH*** 54.1 ng/mL (30-80)
== END ==
LOC: OLABN 12:19
PROVIDERS: ATTENDING PHYSICIAN Student in an Organized Health Care Education/Training Program
DX: I10 Essential (primary) hypertension (principal); E55.0 Rickets, active
CPT/HCPCS: 36415; 80048; 82306